=== PATIENT | female | born 1955 | race Caucasian/White ===

== ENCOUNTER → 2016-08-10 | Outpatient (CLI) | payer BC ==
[~2016-08-10] MED LIST: ALBU0.5N2 INH; ALBUTEROL NEB NEB; ARFO15NE INH; ATRINS NEB; B-COCAP2 PO; BRVIN INH; BUDE0.5S NEB; CALC500C3 PO; CLON0.5T3 PO; EPP3/2 IM; FURO-85 PO; FURO20TA PO; KLN5 PO; MCRK20 PO; MOME50SP5; MOME6000 NAE; MTR400 PO; MULT-506 PO; OMEP40CA18 PO; OPTIRAY 320 IV PRN; PANT20TA PO; POTA20TA16 PO; PRED10TA PO; RANI300T2 PO; SACC250C11 PO; SINUS MEDICATION PO; VFND200 PO; ZEGRID PO; duoneb NEB
--- NOTE | 2016-08-10 15:55 | DIAGNOSTIC IMAGING REPORT ---
CT OF THE ABDOMEN AND PELVIS WITH CONTRAST CLINICAL HISTORY: Dysfunctional uterine bleeding. Abdominal bloating. Fatigue. COMPARISON STUDY: CT of the abdomen and pelvis May 10, 2015. TECHNIQUE: Following IV administration of 93 mL of Optiray-320, axial images of the abdomen and pelvis were obtained from the lung bases to the proximal femurs. Images were reviewed in the axial, sagittal, and coronal planes. IV contrast was administered without complication. Oral contrast was administered. CT DOSE: 831.42 mGycm FINDINGS: The heart is mildly enlarged. There is fatty infiltration of the liver. The spleen, adrenal glands, kidneys and pancreas are unremarkable. There is no biliary or pancreatic ductal dilatation. No peripancreatic or pericholecystic infiltration is present. The caliber and wall thickness of small and large bowel are normal. There is a moderate amount of stool within the colon. There is colonic diverticulosis without evidence for acute diverticulitis. No ascites is present. There is no free air. No abscess is present. No suspicious skeletal lesions are identified. The ovaries are not enlarged. The uterus is suboptimally assessed by CT. IMPRESSION: 1. No acute process within the abdomen or pelvis. 2. Colonic diverticulosis without evidence of acute diverticulitis. 3. Suboptimal evaluation of the uterus given CT technique. If indicated, a pelvic ultrasound could be obtained. Electronically signed by: Duncan Mcnally M.D. 08/10/2016 3:53 PM Dictated Date/Time: 08/10/2016 3:47 PM
== END | disposition home or self-care (01) ==
LOC: C.CTS 13:26
PROVIDERS: ATTEND Internal Medicine Pulmonary Disease
DX: N93.8 Other specified abnormal uterine and vaginal bleeding (principal)

== ENCOUNTER → 2016-08-13 | Outpatient (CLI) | payer BC ==
[~2016-08-13] MED LIST changes: -OPTIRAY 320 IV PRN
--- NOTE | 2016-08-13 14:09 | DIAGNOSTIC IMAGING REPORT ---
LUMBAR SPINE 5 VIEWS HISTORY: M54.9 Back pain Long time steroid use. E X0D E COMPARISON: Abdomen and pelvis CT 08/10/2016. FINDINGS: The vertebral bodies are partially obscured by the overlying residual oral contrast within the colon on the lateral view. No definite acute fracture or subluxation. Moderate facet degenerative changes within the lower lumbar spine. Mild disc space narrowing L3-L4 and L4-L5. IMPRESSION: Suboptimal evaluation due to the overlying oral contrast within the bowel from the recent abdomen and pelvis CT. However, no definite fracture or subluxation. Degenerative changes as described above. Electronically signed by: Hemanth Chang M.D. 08/13/2016 2:08 PM Dictated Date/Time: 08/13/2016 2:04 PM
== END | disposition home or self-care (01) ==
LOC: C.RAD 13:34
PROVIDERS: ATTEND Internal Medicine Pulmonary Disease
DX: M54.9 Dorsalgia, unspecified (principal); Z79.52 Long term (current) use of systemic steroids

== ENCOUNTER → 2016-09-10 | Outpatient (CLI) | payer BC ==
--- NOTE | 2016-09-10 16:26 | DIAGNOSTIC IMAGING REPORT ---
CHEST 2 VIEWS ROUTINE CLINICAL HISTORY: Chronic bronchitis COMPARISON STUDY: 12/25/2015 FINDINGS: The cardiac and mediastinal contours are normal. There is no evidence of focal pulmonary consolidation. There is no evidence of failure. No pleural effusions are visualized.[ IMPRESSION: No active disease in the chest. Electronically signed by: Chau Winters M.D. 09/10/2016 4:25 PM Dictated Date/Time: 09/10/2016 4:24 PM
== END | disposition home or self-care (01) ==
LOC: C.RAD 15:59
PROVIDERS: ATTEND Internal Medicine Pulmonary Disease
DX: J42 Unspecified chronic bronchitis (principal)

== ENCOUNTER → 2016-09-24 | Outpatient (CLI) | payer BC ==
--- NOTE | 2016-09-24 12:32 | MAMMOGRAPHY REPORT ---
UNILATERAL LEFT DIGITAL DIAGNOSTIC MAMMOGRAM TOMOSYNTHESIS WITH CAD: 09/24/2016 CLINICAL HISTORY: 6 Month Follow-up Left. TECHNIQUE: Breast tomosynthesis in addition to standard 2D mammography was performed. Current study was also evaluated with a Computer Aided Detection (CAD) system. Left CC and MLO 2-D and tomosynth esis images and spot magnification left CC and ML views were obtained. COMPARISON: Comparison is made to exams dated: 03/23/2016 ultrasound, 03/23/2016 mammogram, 09/23/2015 mammogram, and 05/23/2012 mammogram - [facility]. BREAST COMPOSITION: There are scattered areas of fibroglandular density in the left breast. FINDINGS: Spot magnification views of the left breast again demonstrate punctate benign-appearing c alcifications within the left subareolar and left lower inner quadrant, which are stable dating back to spot magnification views from September 2015. In retrospect, calcifications in the left subareol ar breast were likely present on the 2010 exam. The calcifications in the left lower inner quadrant demonstrate layering on the lateral view, consistent with benign milk of calcium. Other scattered benign-appearing punctate and round calcifications are noted within the left breast. The remainder of the left breast is stable compared to prior exams, without suspicious masses, calci fications, or areas of architectural distortion noted. Multiple small scattered circumscribed benig n-appearing masses are again seen within the left breast, with corresponding benign cysts seen on th e prior ultrasound exam. IMPRESSION: ACR BI-RADS CATEGORY 2: BENIGN Benign-appearing calcifications in the left breast are stable and considered benign given the morpho logy and stability and likely represent fibrocystic changes. There is no mammographic evidence of m alignancy in the left breast. Return to annual mammogram screening schedule is recommended, due 2016. The patient has been verbally notified of the results. Approximately 10% of breast cancers are not detected with mammography. A negative mammographic repor t should not delay biopsy if a clinically suggestive mass is present. Tamera Gomes M.D. ah/:09/24/2016 09:29:02 Mammalogy Teacher: Tristan LI(R)(M), [facility] letter sent: Normal 1/2 BI-RADS Code: ACR BI-RADS Category 2: Benign
== END | disposition home or self-care (01) ==
LOC: C.MAMM 08:15
PROVIDERS: ATTEND Obstetrics & Gynecology
DX: R92.1 Mammographic calcification found on diagnostic imaging of breast (principal)

== ENCOUNTER → 2016-09-25 | Outpatient (CLI) | payer BC ==
[2016-09-25 17:23] LABS: INR 0.9 (0.9-1.1); PARTIAL THROMBOPLASTIN RATIO 0.9
[2016-09-25 17:27] LABS: BLOOD UREA NITROGEN 18 mg/dl (7-18); CREATININE 0.96 mg/dl (0.60-1.20); GLUCOSE 133 mg/dl (70-99)
[2016-09-25 17:28] LABS: ALT/SGPT 42 U/L (12-78); BASO % 0.1 %; BASO ABS # 0.01 K/uL (0-0.2); BUN/CREATININE RATIO 18.6 (10-20); CALCIUM 8.9 mg/dl (8.5-10.1); CARBON DIOXIDE 26 mmol/L (21-32); CHLORIDE 102 mmol/L (98-107); COMPLETE YES; EOS % 0.1 %; HEMATOCRIT 43.2 % (37-47); IG% 0.9 %; LYMPH % 12.2 %; LYMPH ABS # 1.88 K/uL (1.2-3.4); MEAN CELL VOLUME 92.9 fL (80-100); MEAN CORPUSCULAR HGB CONC 33.3 g/dl (32-36); MEAN PLATELET VOLUME 9.9 fL (7.4-10.4); MONO % 6.1 %; NEUT % 80.6 %; PLATELET COUNT 348 K/uL (130-400); POTASSIUM 3.5 mmol/L (3.5-5.1); RED BLOOD COUNT 4.65 M/uL (4.2-5.4); SODIUM 138 mmol/L (136-145)
[2016-09-25 17:30] LABS: ALB/GLOB RATIO 1.3 (0.9-2); ALKALINE PHOSPHATASE 65 U/L (45-117); AST/SGOT 14 U/L (15-37)
== END | disposition home or self-care (01) ==
LOC: C.LABBFT 12:34
PROVIDERS: ATTEND Internal Medicine Pulmonary Disease
DX: J20.9 Acute bronchitis, unspecified (principal); T14.8 Other injury of unspecified body region; X58.XXXA Exposure to other specified factors, initial encounter

== ENCOUNTER 2016-09-29 14:33 | Inpatient (IN) | payer BC, OTHER ==
[~2016-09-29] VITALS: Ht 157.5 cm; Wt 77.0 kg
[~2016-09-29 14:33] MED LIST changes: -ALBUTEROL NEB NEB; -ARFO15NE INH; -ATRINS NEB; -FURO-85 PO; -MOME6000 NAE; -MTR400 PO; -MULT-506 PO; -OMEP40CA18 PO; -PANT20TA PO; -POTA20TA16 PO; -RANI300T2 PO; -SACC250C11 PO; -VFND200 PO
[2016-09-29] MEDS ORDERED: MAGNESIUM HYDROXIDE SUSP 30 ML UDC PO PRN (18:00)
[2016-09-29] MEDS ORDERED: ONDANSETRON INJ 2 MG/ML 2 ML VIAL IV PRN (18:00)
[2016-09-29] MEDS ORDERED: ALUMINUM/MAGNESIUM/SIMETH (MAALOX MAX) 30 ML UDC PO PRN (18:00)
[2016-09-29] MEDS ORDERED: ZOLPIDEM TARTRATE 5 MG TAB PO PRN (18:00)
[2016-09-29] MEDS ORDERED: ACETAMINOPHEN 325 MG TAB PO PRN (18:00)
[2016-09-29 18:01] VITALS: BP 163/92; PULSE 104; TEMP 36.6; O2SAT 96; Ht 157.5 cm; Wt 77.0 kg
[2016-09-29] MEDS ORDERED: POLYETHYLENE (MIRALAX) 17 GM PACK PO PRN (18:30)
[2016-09-29 18:38] LABS: COMPLETE YES; IG% 0.4 %; LYMPH % 2.7 %; LYMPH ABS # 0.36 K/uL (1.2-3.4); MEAN CELL VOLUME 92.8 fL (80-100); MEAN CORPUSCULAR HEMOGLOBIN 31.6 pg (25-34); MEAN CORPUSCULAR HGB CONC 34.1 g/dl (32-36); MEAN PLATELET VOLUME 9.2 fL (7.4-10.4); MONO % 0.3 %; NEUT % 96.6 %; PLATELET COUNT 292 K/uL (130-400); RED BLOOD COUNT 4.74 M/uL (4.2-5.4); WHITE BLOOD COUNT 13.56 K/uL (4.8-10.8)
[2016-09-29 18:43] LABS: BUN/CREATININE RATIO 17.3 (10-20); CALCIUM 9.7 mg/dl (8.5-10.1); CREATININE 1.1 mg/dl (0.60-1.20); MAGNESIUM 2.2 mg/dl (1.8-2.4); POTASSIUM 4.4 mmol/L (3.5-5.1)
[2016-09-29] MEDS ORDERED: PANT20TA PO (18:45)
[2016-09-29] MEDS ORDERED: HydrALAZINE HCL 20 MG/ML VIAL IV. PRN (19:15)
[2016-09-29] MEDS: BUDESONIDE 0.5 MG/2 ML VIAL (PULMICORT) INH SCH (19:25)
--- NOTE | 2016-09-29 19:25 | History and Physical ---
History & Physical Date & Time of Service: Sep 29, 2016 at 19:09 Chief Complaint: Sob; Asthma Exacerbation Primary Care Physician: Arcenio Mason PA-C History of Present Illness Source: patient Patient is a pleasant 60 y/o female, with PMHx of asthma, anxiety, and GERD, who was directly admitted from Arcenio Mason PA-C office due to asthma exacerbation. Per patient, she has been dealing with severe asthma for over 15 years now. Her latest exacerbation has been ongoing since August. She has been on multiple antibiotic coarse (z-pac and clarithromycin) and high dose Prednisone tappers. Recently, she has been receiving SoluMedrol IM 3 times per week, with little relief in symptoms. She was scheduled for a bronchoscopy on 10/05. However, patient became very SOB today and was seen by Arcenio Mason. Patient was directly admitted and bronchoscopy is now scheduled for 10/02. Per patient, she has had +15 bronchoscopies in the past. Patient states she is usually able to control her anxiety, which occurs when she becomes very SOB. However, this afternoon she became very anxious due to uncontrollable symptoms. +SOB. +chest tightness. Patient denies cough or sputum production. She feels as though everything is stuck in her chest, with no air movement. Patient denies any fever , chills, sweats, lightheadedness, dizziness, vision changes, CP, palpitations, edema, wheezing, cough, abdominal pain, nausea, vomiting, diarrhea, urinary symptoms, melena, numbness/tingling, weakness, muscle/joint pain, depression, active bleeding, or new skin discoloration/changes. Past Medical/Surgical History Medical Problems: 1. Asthmatic 2. Anxiety 3. GERD 4. Kidney stones Surgical hx: 1. Numerous fiberoptic bronchoscopies 2. Cystoscopy 3. Sinus surgery Family History 1. DM 2. HTN 3. Cancer Social History Smoking Status: Unknown if Ever Smoked Marital Status: Housing status: lives with family Immunizations History of Influenza Vaccine: Yes Influenza Vaccine Date: Apr 02, 2012 History of Tetanus Vaccine?: Unknown History of Pneumococcal: Yes Pneumococcal Date: Aug 02, 2009 History of Hepatitis B Vaccine: No Multi-Drug Resistant Organisms History of MDRO: No Allergies Coded Allergies: Propofol (Verified Allergy, Unknown, SICK TO STOMACH AND DIFFICULTY BREATHING, 04/05/14) Propranolol (Verified Adverse Reaction, Unknown, ., 04/05/14) Home Medications Scheduled Budesonide Soln (Pulmicort Respules 0.5MG/2ML), 1 VIAL NEB BID Calcium Carbonate (Tums), 1 DOSE PO DIRECTED Clonazepam (Klonopin), 0.5 MG PO qhs Clonazepam (Clonazepam), 0.5 MG PO TID Epinephrine (Epipen), 0.3 MG IM UD Mometasone Furoate (Nasonex), 2 SPRAY NA DAILY Pantoprazole Sodium (Protonix), 20 MG PO DAILY Prednisone Tab (Prednisone), 20 MG PO tapered Vitamin B Cmplx/Vitc/Folic Ac (Nephrocaps), 1 CAP PO BID Scheduled PRN [duoneb], 1 ML NEB Q4 PRN for Shortness of Breath Physical Exam Vital Signs Date Time Temp Pulse Resp B/P Pulse Ox O2 Delivery O2 Flow Rate FiO2 09/29/16 18:01 36.6 104 22 163/92 96 Room Air General Appearance: no apparent distress Head: normocephalic, atraumatic Eyes: normal inspection, PERRL ENT: hearing grossly normal Neck: supple Respiratory/Chest: no respiratory distress, no accessory muscle use, + decreased breath sounds (Throughout ) Cardiovascular: regular rate, rhythm, normal peripheral pulses Abdomen/GI: normal bowel sounds, non tender, soft Back: normal inspection Extremities/Musculoskelatal: no calf tenderness, no pedal edema Neurologic/Psych: alert, normal mood/affect, oriented x 3 Skin: normal color, warm/dry, no rash Diagnostics Laboratory Results Results Past 24 Hours Test 09/29/16 18:08 09/29/16 18:24 Range/Units Sodium Level 137 136-145 mmol/L Potassium Level 4.4 3.5-5.1 mmol/L Chloride Level 101 98-107 mmol/L Carbon Dioxide Level 26 21-32 mmol/L Anion Gap 10.0 3-11 mmol/L Blood Urea Nitrogen 19 7-18 mg/dl Creatinine 1.10 0.60-1.20 mg/dl Est Creatinine Clear Calc Drug Dose 51.6 ml/min Estimated GFR () 62.8 Estimated GFR (Non- 54.1 BUN/Creatinine Ratio 17.3 10-20 Random Glucose 170 70-99 mg/dl Calcium Level 9.7 8.5-10.1 mg/dl Magnesium Level 2.2 1.8-2.4 mg/dl White Blood Count 13.56 4.8-10.8 K/uL Red Blood Count 4.74 4.2-5.4 M/uL Hemoglobin 15.0 12.0-16.0 g/dL Hematocrit 44.0 37-47 % Mean Corpuscular Volume 92.8 80-100 fL Mean Corpuscular Hemoglobin 31.6 25-34 pg Mean Corpuscular Hemoglobin Concent 34.1 32-36 g/dl Platelet Count 292 130-400 K/uL Mean Platelet Volume 9.2 7.4-10.4 fL Neutrophils (%) (Auto) 96.6 % Lymphocytes (%) (Auto) 2.7 % Monocytes (%) (Auto) 0.3 % Eosinophils (%) (Auto) 0.0 % Basophils (%) (Auto) 0.0 % Neutrophils # (Auto) 13.10 1.4-6.5 K/uL Lymphocytes # (Auto) 0.36 1.2-3.4 K/uL Monocytes # (Auto) 0.04 0.11-0.59 K/uL Eosinophils # (Auto) 0.00 0-0.5 K/uL Basophils # (Auto) 0.00 0-0.2 K/uL RDW Standard Deviation 46.7 36.4-46.3 fL RDW Coefficient of Variation 13.8 11.5-14.5 % Immature Granulocyte % (Auto) 0.4 % Immature Granulocyte # (Auto) 0.06 0.00-0.02 K/uL Impression Assessment and Plan 60 y/o female, with PMHx of asthma, anxiety, and GERD, who was directly admitted from Arcenio Mason PA-C office due to asthma exacerbation. Asthma exacerbation: - Admit med/surg - DuoNebs QID and q2 hr PRN - IV SoluMedrol 80 mg q8 hrs - Continue home inhalers - PRP and CBC - Consult pulmonary--> bronchoscopy scheduled for 3/3 Anxiety: Continue Klonopin GERD: Continue Protonix HTN: Hydralazine 10 mg IV PRN GI Prophylaxis: - Maalox PRN - IV Zofran PRN - Colace and/or Milk of Mag PRN DVT prophylaxis: TRISTON and SCDs Code Status: LEVEL I, FULL Dispo: From home Level of Care Med/Surg Advanced Directives Existing Living Will: No Existing Power of Benzol Operator: No Resuscitation Status FULL RESUSCITATION VTE Prophylaxis VTE Risk Assessment Done? Y/N: Yes Risk Level: High Given or contraindicated: Josseline Cifuentes, SCD's
[2016-09-29 19:26] VITALS: PULSE 65; O2SAT 97
[2016-09-29] MEDS: ALBUT/IPRATROP 3MG/0.5MG NEB 3 ML VIAL INH SCH (19:26)
[2016-09-29] MEDS ORDERED: SODIUM CHLORIDE 0.9% 1000ML 1,000 ML IV ONE (19:30)
[2016-09-29] MEDS: METHYLPREDNISOLONE IV 80 MG in SYRINGE 0 ML IV SCH (19:50)
[2016-09-29] MEDS ORDERED: ALBUT/IPRATROP 3MG/0.5MG NEB 3 ML VIAL INH SCH (20:00)
[2016-09-29] MEDS: CLONAZEPAM 0.5 MG TAB PO SCH (23:00)
[2016-09-29] MEDS: NEPHROCAPS PO SCH (23:00)
[2016-09-29 23:14] VITALS: BP 134/72; PULSE 80; TEMP 36.5; O2SAT 96
[2016-09-30] VITALS (9 sets, daily range): BP systolic 128–140; BP diastolic 69–74; PULSE 63–102; TEMP 36.4–36.7; O2SAT 94–98
[2016-09-30] MEDS: METHYLPREDNISOLONE IV 80 MG in SYRINGE 0 ML IV SCH (04:15)
[2016-09-30] MEDS: CLONAZEPAM 0.5 MG TAB PO SCH ×4 (07:45→20:28)
[2016-09-30] MEDS: PANTOprazole SOD 40 MG TAB PO SCH (07:45)
[2016-09-30] MEDS: NEPHROCAPS PO SCH ×2 (07:45→20:28)
[2016-09-30 07:52] LABS: CREATININE 0.92 mg/dl (0.60-1.20)
[2016-09-30 07:53] LABS: MAGNESIUM 2.3 mg/dl (1.8-2.4); POTASSIUM 4.4 mmol/L (3.5-5.1)
[2016-09-30] MEDS: BUDESONIDE 0.5 MG/2 ML VIAL (PULMICORT) INH SCH ×2 (08:19→19:25)
[2016-09-30] MEDS: ALBUT/IPRATROP 3MG/0.5MG NEB 3 ML VIAL INH SCH ×4 (08:19→19:25)
--- NOTE | 2016-09-30 08:58 | PULMONARY CONSULTATION ---
DATE OF CONSULTATION: 09/30/2016 DATE OF CONSULTATION: 09/30/2016. HISTORY OF PRESENT ILLNESS: The patient is a very pleasant 60-year-old female who was admitted from Arcenio Mason PA-C office yesterday with exacerbation of bronchial asthma. She has had trouble for about a month. She has had a cough which is very minimal associated with wheezing and shortness of breath. The wheezing occurs at nighttime. She denies any aspiration or significant sputum production and minimal cough. She has had some significant shortness of breath with exertion. She had been treated with multiple antimicrobial agents recently, high dose prednisone and has been on prednisone for an extended period of time and has been on Z-Ramin and clarithromycin. She has had multiple bronchoscopies done in the past and states each time she has those done it usually helps her several weeks, sometimes up to several months. She states she has had [address] Preciado in the past and also by physicians in [place]. She had been evaluated at [facility], seen at the pulmonary clinic at [facility], has been in 2 studies for bronchial asthma. Bronchial thermoplasty was never done because it was never approved by her insurance. I do not believe it is being done at [facility]. Nonetheless, she continued to have worsening shortness of breath. Today, she is walking around the room and feels considerably improved since admission. She is scheduled for bronch again on Wednesday the . She denies aspiration, foreign body aspiration, fevers, night sweats or weight loss. She has dogs at home, no cats, they do not seem to bother her. REVIEW OF SYSTEMS: Otherwise unremarkable. PAST MEDICAL HISTORY: Significant for anxiety, renal lithiasis, dysfunctional uterine bleeding, diverticulosis, GERD, obesity and asthma. PAST SURGICAL HISTORY: Cystoscopy, sinus surgery, multiple bronchoscopies. Review of the records she had a CAT scan of her chest in September of last year that revealed several calcified left hilar lymph nodes, mild cardiomegaly, few calcified granulomas and some ground-glass opacities at the bases associated with atelectasis. Fatty infiltration of the liver is noted. These airways were otherwise unremarkable. SOCIAL HISTORY: Negative. 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 She is not associated with any industrial exposures. FAMILY HISTORY: Positive for hypertension and diabetes, lives with her family members at the present time. She is up to date with her immunizations. ALLERGIES: Propofol and propranolol. MEDICATIONS: Noted. I do not see that she is on a long acting bronchodilator, apparently has been on those in the past. PHYSICAL EXAMINATION: VITAL SIGNS: Stable. Blood pressure was initially 163/92, it is 134/72, oxygen saturation 96% on room air. She is afebrile. Weight 77 kilograms. She is receiving an albuterol treatment this morning at 0750 hours. HEAD, EYES, EARS, NOSE, AND THROAT: Unremarkable. No tenderness over the sinuses. Nose exam is unremarkable with small nares. No evidence of thrush is noted. No lesions noted in the upper airway. Trachea midline. No adenopathy is noted. Expansion of the thorax is good with deep inspiration. HEART: Regular rate and rhythm. No murmurs are heard. Second heart sound normal. LUNGS: I thought were clear with very minimal wheezing with forced expiration in the mid lung mann posterior. No fremitus is noted. There is no dullness to percussion. ABDOMEN: Soft and nontender. No organomegaly noted. EXTREMITIES: She has no cyanosis, clubbing or edema. There is no clinical evidence of DVT. LABORATORY DATA: White count 13.56, hemoglobin 15, hematocrit 44%, platelet count 292,000 with an unremarkable differential. No eosinophils are noted. PRP is normal with a glucose of 170. According to the record, she has had ethmoid sinus surgery back in 2007 that showed mild chronic inflammation. Chest x-ray on 09/10/2016 showed no significant abnormalities. IMPRESSION: 1. Bronchial asthma with exacerbation. 2. Gastroesophageal reflux disease. RECOMMENDATIONS: 1. Continue with her present medications. She had a cardiac cath in 2011 that showed no evidence of any coronary artery disease. Her EKG looked good so her activity can be unlimited. Suggest good DVT prophylaxis and antireflux regimen and she understands. 2. May consider changing the Pulmicort to Symbicort 160/4.5 two puffs b.i.d. and perhaps add on Singulair although I am sure that has been instituted in the past. I will ask Arcenio Mason PA-C to evaluate the patient as well. I will follow along during the patient's hospital stay.
--- NOTE | 2016-09-30 13:24 | Hospitalist Progress Note ---
Hospitalist Progress Note Date of Service Sep 30, 2016. (Mattie Oakes ., PA-C) Subjective Pt evaluation today including: conversation w/ patient, physical exam, chart review, lab review, review of inpatient medication list Voiding: no voiding problems, no incontinence Patient states she feels minimally improved since admission. +SOB. +chest congestion. +anxiety. She feels fine when doing no activity, but as soon as she stands up, she feels as though her throat is constricting. Patient is eating and drinking OK. Patient denies any fever, chills, sweats, lightheadedness, dizziness, vision changes, CP, palpitations, edema, wheezing, cough, abdominal pain, nausea, vomiting, diarrhea, urinary symptoms, melena, numbness/tingling, weakness, muscle/joint pain, depression, active bleeding, or new skin discoloration/changes. (Mattie Oakes ., PA-C) Medications Current Inpatient Medications Medications (Trade) Dose Ordered Sig/Raheem Route Start Time Stop Time Status Last Admin Dose Admin Acetaminophen (Tylenol Tab) 650 mg Q4H PRN PO 09/29/16 18:00 10/29/16 17:59 Al Hydrox/Mg Hydrox/Simethicone (Maalox Max Susp) 15 ml Q4H PRN PO 09/29/16 18:00 10/29/16 17:59 Magnesium Hydroxide (Milk Of Magnesia Susp) 30 ml Q6H PRN PO 09/29/16 18:00 10/29/16 17:59 Polyethylene (Miralax Powder Packet) 17 gm DAILY PRN PO 09/29/16 18:30 10/29/16 18:29 Zolpidem Tartrate (Ambien Tab) 5 mg HSZ PRN PO 09/29/16 18:00 10/29/16 17:59 Ondansetron HCl (Zofran Inj) 4 mg Q6H PRN IV 09/29/16 18:00 10/29/16 17:59 Pantoprazole Sodium (Protonix Tab) 40 mg QAM PO 09/30/16 09:00 10/30/16 08:59 09/30/16 07:45 40 MG Budesonide (Pulmicort Respules 0.5MG/ 2ML Neb Soln) 1 mg BIDR INH 09/29/16 20:00 10/29/16 19:59 09/30/16 08:19 1 MG Clonazepam (Klonopin Tab) 0.5 mg TID@0900,1300,1700 PO 09/30/16 09:00 10/30/16 08:59 09/30/16 12:32 0.5 MG Clonazepam (Klonopin Tab) 0.5 mg HS PO 09/29/16 21:00 10/29/16 20:59 09/29/16 23:00 0.5 MG Vitamin B Complex/ Vit C/Folic Acid (Nephrocaps) 1 cap BID PO 09/29/16 21:00 10/29/16 20:59 09/30/16 07:45 1 CAP Hydralazine HCl (HydrALAZINE INJ) 10 mg Q6H PRN IV. 09/29/16 19:15 10/29/16 19:14 Albuterol/ Ipratropium 3 ml 3 ml QIDR INH 09/29/16 20:00 10/29/16 19:59 09/30/16 11:35 3 ML Methylprednisolone Sodium Succinate/ Syringe (Solu-Medrol IV/ Syringe) 0.64 ml @ 1.5 mls/min Q8@0400,1200,2000 IV 09/30/16 13:00 10/30/16 12:59 09/30/16 13:46 1.5 MLS/MIN Heparin Sodium (Porcine) (Heparin Sq 5000 Unit/0.5ml) 5,000 unit Q12 SQ 09/30/16 21:00 10/30/16 20:59 (Mattie Oakes, PA-C) Objective Vital Signs Date Time Temp Pulse Resp B/P Pulse Ox O2 Delivery O2 Flow Rate FiO2 09/30/16 11:35 97 16 98 Room Air 09/30/16 10:24 97 Room Air 09/30/16 08:00 Room Air 09/30/16 07:55 36.7 80 18 140/72 97 Room Air 09/30/16 07:40 78 16 97 Room Air 09/30/16 00:00 Room Air 09/29/16 23:14 36.5 80 18 134/72 96 Room Air 09/29/16 20:00 Room Air 09/29/16 19:26 65 18 97 Room Air 09/29/16 18:01 36.6 104 22 163/92 96 Room Air (Mattie Oakes ., PA-C) Physical Exam General Appearance: no apparent distress Eyes: normal inspection, PERRL ENT: hearing grossly normal Neck: supple Respiratory/Chest: no respiratory distress, no accessory muscle use, + decreased breath sounds (throughout, >at bilateral lung bases ) Cardiovascular: regular rate, rhythm Abdomen: normal bowel sounds, non tender, soft Extremities: no pedal edema, no calf tenderness Neurologic/Psychiatric: alert, normal mood/affect, oriented x 3 Skin: normal color, warm/dry, no rash (Mattie Oakes ., PA-C) Laboratory Results Last 24 Hours Test 09/29/16 18:08 09/29/16 18:24 09/30/16 07:00 Sodium Level 137 mmol/L 143 mmol/L Potassium Level 4.4 mmol/L 4.4 mmol/L Chloride Level 101 mmol/L 107 mmol/L Carbon Dioxide Level 26 mmol/L 26 mmol/L Anion Gap 10.0 mmol/L 10.0 mmol/L Blood Urea Nitrogen 19 mg/dl 21 mg/dl Creatinine 1.10 mg/dl 0.92 mg/dl Est Creatinine Clear Calc Drug Dose 51.6 ml/min 61.7 ml/min Estimated GFR () 62.8 77.9 Estimated GFR (Non- 54.1 67.2 BUN/Creatinine Ratio 17.3 23.0 Random Glucose 170 mg/dl 146 mg/dl Calcium Level 9.7 mg/dl 9.0 mg/dl Magnesium Level 2.2 mg/dl 2.3 mg/dl White Blood Count 13.56 K/uL Red Blood Count 4.74 M/uL Hemoglobin 15.0 g/dL Hematocrit 44.0 % Mean Corpuscular Volume 92.8 fL Mean Corpuscular Hemoglobin 31.6 pg Mean Corpuscular Hemoglobin Concent 34.1 g/dl Platelet Count 292 K/uL Mean Platelet Volume 9.2 fL Neutrophils (%) (Auto) 96.6 % Lymphocytes (%) (Auto) 2.7 % Monocytes (%) (Auto) 0.3 % Eosinophils (%) (Auto) 0.0 % Basophils (%) (Auto) 0.0 % Neutrophils # (Auto) 13.10 K/uL Lymphocytes # (Auto) 0.36 K/uL Monocytes # (Auto) 0.04 K/uL Eosinophils # (Auto) 0.00 K/uL Basophils # (Auto) 0.00 K/uL RDW Standard Deviation 46.7 fL RDW Coefficient of Variation 13.8 % Immature Granulocyte % (Auto) 0.4 % Immature Granulocyte # (Auto) 0.06 K/uL Chemistry Specimen Hemolysis (Mattie Oakes PA-C) Assessment and Plan 60 y/o female, with PMHx of asthma, anxiety, and GERD, who was directly admitted from Arcenio Mason PA-C office due to asthma exacerbation. Asthma exacerbation: - Admit med/surg - DuoNebs QID and q2 hr PRN - IV SoluMedrol 80 mg q8 hrs--> wean to 40 mg q8 hrs per pulmonary - Continue home inhalers - PRP and CBC - Consult pulmonary--> bronchoscopy scheduled for 10/02 - CXR pending Anxiety: Continue Klonopin GERD: Continue Protonix HTN: Hydralazine 10 mg IV PRN GI Prophylaxis: - Maalox PRN - IV Zofran PRN - Colace and/or Milk of Mag PRN DVT prophylaxis: Heparin 5000 units SQ q12 hrs, TRISTON and SCDs Code Status: LEVEL I, FULL Dispo: From home (Mattie Oakes PA-C) Reviewed: Pt Seen/Exam by Me (Mala Ruiz MD) History Physician Music Typographer Supervision Note: I interviewed and examined the patient. Discussed with KEN Oakes and agree with findings and plan as documented in the note. Any exceptions or clarifications are listed here: Reviewed history in detail this evening. Pt states she is significantly SOB yet talks nonstop without any appearance of dyspnea for almost 15 min. Not requiring oxygen, no cough. States she just stops being able to get air into her chest. Is eager to have bronchoscopy done and has had 15 previous bronchs as per pt. Vitals reviewed, CXR reviewed and is normal AAOx3, NAD, speaking in fluent sentences without any problems, appears well RRR no mgr nl S1S2 CTAB, moving air well in all mann, no wcr, unlabored breathing ABd sof Lul ND Ext no edema 60 yo female here with asthma exacerbation and complex history of steroid- dependent asthma for 15 years. Seems to be doing quite well now on IV steroids. Plan for bronchoscopy to see if has mucus plugging. States has tried "every single medication" for asthma and allergies, has tried vibration vest, flutter valves, etc. and nothing helps her atypical symptoms of sudden onset of not being able to get air in that lasts for 1 min at a time. -continue IV steroids -consider increasing meds for anxiety -Pulm following Documented By: Mala Ruiz (Mala Ruiz MD)
[2016-09-30] MEDS: METHYLPREDNISOLONE IV 40 MG in SYRINGE 0 ML IV SCH ×2 (13:46→20:27)
--- NOTE | 2016-09-30 15:06 | DIAGNOSTIC IMAGING REPORT ---
CHEST 2 VIEWS ROUTINE CLINICAL HISTORY: cough, SOB dyspnea COMPARISON STUDY: 09/10/2016 FINDINGS: The bones soft tissues and hemidiaphragms are normal. The cardiomediastinal silhouette is normal. The lungs are clear. The pulmonary vasculature is normal. IMPRESSION: Negative chest. Electronically signed by: Jac Greenfield M.D. 09/30/2016 3:05 PM Dictated Date/Time: 09/30/2016 3:05 PM
[2016-09-30] MEDS: HEPARIN SOD 5000 UNIT/0.5 ML CARP SQ SCH (20:30)
[2016-10-01] VITALS (7 sets, daily range): BP systolic 123–148; BP diastolic 74–87; PULSE 68–79; TEMP 36.3–36.5; O2SAT 90–98
[2016-10-01] MEDS: METHYLPREDNISOLONE IV 40 MG in SYRINGE 0 ML IV SCH ×2 (06:29→21:53)
--- NOTE | 2016-10-01 07:20 | PULMONARY PROGRESS NOTE ---
DATE: 10/01/2016 SUBJECTIVE: The patient is doing very well. She has minimal cough and still has some anterior chest tightness and fullness that she has had for a number of years. It is continuous for 24 hours a day. When she coughs, it seems to have improved. She has not had any sputum production. She has been ambulating in the alicea consistently with no wheezing. Her inspiratory capacity by incentive spirometry is about 1700 mL. She does a peak flow at home, generally runs about 300, sometimes down to 275. When she gets down onto 220 range, she usually has trouble with wheezing. She has not had any wheezing. She is scheduled for bronchoscopy for tomorrow. PHYSICAL EXAMINATION: VITAL SIGNS: Stable. Blood pressure 136/74, oxygen saturation is 97% on room air, and respiratory rate 16. I & O is 662 in and unknown amount out. Weight 77 kilograms. She does use a nebulizer at home. Medications are noted. HEENT: Unremarkable. No thrush is noted. No adenopathy is noted. HEART: Regular rate and rhythm. No murmurs are heard. LUNGS: Clear. Forced expiratory maneuver 2 seconds with no wheezing. ABDOMEN: Soft and nontender. EXTREMITIES: She has no cyanosis, clubbing or edema. Chest x-ray was unremarkable as it was several weeks ago. IMPRESSION: Bronchial asthma. She has had recalcitrant bronchial asthma that has been evaluated at the multiple tertiary care centers as well. RECOMMENDATIONS: 1. At this point, I think the methylprednisolone could be tapered down perhaps to 40 mg q. 12 hours and she can be placed on prednisone at 40 mg daily with a taper. 2. Continue on the inhaled steroids since she may benefit from Symbicort 160/4.5 two puffs b.i.d. and the Pulmicort Respules could be discontinued. 3. Antireflux regimen. 4. 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 She is scheduled for bronchoscopy tomorrow. Since she is stable, I will sign off on the patient. Arcenio Mason can follow her perhaps tomorrow after the bronchoscopy. Overall, she looks good. [facility]
[2016-10-01] MEDS: BUDESONIDE 0.5 MG/2 ML VIAL (PULMICORT) INH SCH ×2 (07:31→20:35)
[2016-10-01] MEDS: ALBUT/IPRATROP 3MG/0.5MG NEB 3 ML VIAL INH SCH ×4 (07:31→20:35)
[2016-10-01] MEDS: PANTOprazole SOD 40 MG TAB PO SCH (07:56)
[2016-10-01] MEDS: NEPHROCAPS PO SCH ×2 (07:56→21:53)
[2016-10-01] MEDS: CLONAZEPAM 0.5 MG TAB PO SCH ×4 (07:56→21:53)
[2016-10-01] MEDS: HEPARIN SOD 5000 UNIT/0.5 ML CARP SQ SCH ×2 (08:00→21:55)
[2016-10-01 08:10] LABS: PROTHROMBIN TIME (PATIENT) 10.2 SECONDS (9.0-12.0)
--- NOTE | 2016-10-01 22:04 | Hospitalist Progress Note ---
Hospitalist Progress Note Date of Service Oct 01, 2016. Subjective Pt evaluation today including: conversation w/ patient, physical exam, conversation w/ farm consultant (Pulm), review of inpatient medication list Pt still c/o being SOB with exertion. No other concerns Constitutional: No fever Cardiovascular: No chest pain Abdomen: No pain All Other Systems: Reviewed and Negative Objective Vital Signs Date Time Temp Pulse Resp B/P Pulse Ox O2 Delivery O2 Flow Rate FiO2 10/01/16 20:35 68 16 95 Room Air 10/01/16 16:00 Room Air 10/01/16 15:54 72 16 96 Room Air 10/01/16 15:53 36.3 73 17 148/87 95 Room Air 10/01/16 11:28 76 16 98 Room Air 10/01/16 08:00 Room Air 10/01/16 07:20 76 16 98 Room Air 10/01/16 07:00 36.3 79 18 136/82 90 Nasal Cannula 2.0 10/01/16 06:59 36.5 76 16 123/74 97 Room Air 09/30/16 23:49 36.7 92 16 136/74 97 Physical Exam General Appearance: WD/WN, no apparent distress Eyes: normal inspection, sclerae normal ENT: hearing grossly normal, pharynx normal Neck: trachea midline Respiratory/Chest: lungs clear (still with minimal effort when asked to take deep breaths but then spontaneously takes deep breaths as I continue to listen and lungs clear, moving air well, ), normal breath sounds, no respiratory distress, no accessory muscle use Cardiovascular: regular rate, rhythm, no edema, no murmur Abdomen: normal bowel sounds, non tender, soft Extremities: normal inspection, no calf tenderness Neurologic/Psychiatric: alert, oriented x 3 Skin: normal color, warm/dry, no rash Laboratory Results Last 24 Hours Test 10/01/16 07:23 Prothrombin Time 10.2 SECONDS Prothromb Time International Ratio 1.0 Assessment and Plan 60 y/o female, with PMHx of asthma, anxiety, and GERD, who was directly admitted from Arcenio Mason PA-C office due to asthma exacerbation failing outpatient treatment and need for bronchoscopy. Pt with complex history of steroid-dependent asthma for 15 years. Seems to be doing quite well now on IV steroids. Plan for bronchoscopy to see if has mucus plugging. States has tried "every single medication" for asthma and allergies, has tried vibration vest, flutter valves, etc. and nothing helps her atypical symptoms of sudden onset of not being able to get air in that lasts for 1 min at a time. Asthma exacerbation: CXR normal, no clear evidence of asthma exacerbation again today, unclear if this is vocal cord dysfunction although Pulm that knows her says she has been tested for this and is negative - continue DuoNebs QID and q2 hr PRN, pt cannot tolerate inhalers, has to have nebs only - IV SoluMedrol 80 mg q8 hrs--> wean to 40 mg q12 hrs per pulmonary - Consult pulmonary--> bronchoscopy scheduled for 3/3 to see if has thick mucus plugs Anxiety: Continue Klonopin but consider adding on SSRI GERD: Continue Protonix HTN: Hydralazine 10 mg IV PRN GI Prophylaxis: - Maalox PRN - IV Zofran PRN - Colace and/or Milk of Mag PRN DVT prophylaxis: Heparin 5000 units SQ q12 hrs, TRISTON and SCDs Code Status: LEVEL I, FULL Dispo: From home
[2016-10-02] VITALS (18 sets, daily range): BP systolic 120–186; BP diastolic 69–96; PULSE 74–99; TEMP 36.2–36.7; O2SAT 92–100
[2016-10-02] MEDS ORDERED: SODIUM CHLORIDE 0.9% 1000ML 1,000 ML IV SCH (06:00)
--- NOTE | 2016-10-02 07:28 | History & Physical Bridge Note ---
H&P Re-Evaluation Bridge Note: I have examined the patient, reviewed the History & Physical and in the interval since the performance of the History & Physical I have noted the following changes of clinical significance: No changes noted
--- NOTE | 2016-10-02 07:29 | Procedure Note ---
Pre-Mod Sedation Assessment General Date of Moderate Sedation: Oct 02, 2016. Vital Signs: Vital Signs Past 12 Hours Date Time Temp Pulse Resp B/P Pulse Ox O2 Delivery O2 Flow Rate FiO2 10/02/16 00:27 36.4 81 16 120/75 97 Room Air 10/01/16 23:50 Room Air 10/01/16 20:35 68 16 95 Room Air Pre-Sedation Airway Assessment Oral Cavity: WNL Short Thick Neck: No Hx of Sleep Apnea: No Smoking Status: Never Smoker Mallampati Classification: Class II ASA Classification: Class I Procedure Planning Contraindications-for Mod Sed: None Yes Notes The planned sedation has been discussed with the patient and consent obtained. I have identified the patient, determined the appropriateness of sedation and have assessed the patient immediately prior to the procedure. All medicine(s) and interventions are by my order.
[2016-10-02] MEDS: METHYLPREDNISOLONE IV 40 MG in SYRINGE 0 ML IV SCH (07:41)
[2016-10-02] MEDS: NEPHROCAPS PO SCH (07:41)
[2016-10-02] MEDS: CLONAZEPAM 0.5 MG TAB PO SCH ×2 (07:41→13:04)
[2016-10-02] MEDS: PANTOprazole SOD 40 MG TAB PO SCH (07:41)
[2016-10-02] MEDS: HEPARIN SOD 5000 UNIT/0.5 ML CARP SQ SCH (07:45)
[2016-10-02] MEDS: ALBUT/IPRATROP 3MG/0.5MG NEB 3 ML VIAL INH SCH ×2 (08:07→11:37)
[2016-10-02] MEDS: BUDESONIDE 0.5 MG/2 ML VIAL (PULMICORT) INH SCH (08:07)
[2016-10-02] MEDS ORDERED: MIDAZOLAM HCL 5 MG/ML 1 ML VIAL IV ONE ×2 (09:00→14:20)
[2016-10-02] MEDS ORDERED: NURSING VERBAL MED ORDER ONE (09:00)
[2016-10-02] MEDS ORDERED: FENTANYL CITRATE INJ 50 MCG/1 ML 2 ML VIAL IV ONE ×2 (09:00→14:20)
--- NOTE | 2016-10-02 09:21 | OPERATIVE REPORT ---
DATE OF OPERATION: 10/02/2016 TIME: 0900. PROCEDURE: Fiberoptic bronchoscopy with bronchoalveolar lavage. INDICATIONS: Chronic persistent asthma refractory to inpatient aggressive medical management. ANESTHESIA PREOPERATIVELY: None. ANESTHESIA DURING PROCEDURE: 12 mg IV Versed, 100 mcg IV fentanyl, 20 mL 4% viscous lidocaine intranasally. PROCEDURE: Fiberoptic bronchoscope was inserted through the right naris with minimal difficulty and passed to the level of true vocal cords. The cords appear to approximate normally with phonation, without evidence of lesions or paralysis. The area was anesthetized with 2% Xylocaine spray and the scope was then introduced in the trachea and right and left tracheobronchial tree. The yesica was sharp. The right main stem bronchus was explored and no endobronchial lesion was seen. The right upper lobe, the apical posterior and anterior segments, bronchus intermedius, right middle lobe and its medial and lateral segments, and all basilar segments of right lower lobe were explored. A small amount of mucopurulent secretion lavaged from the right lower lobe and right middle lobar and segmental bronchi until clear. Minimal mucous pitting was visible throughout the right tracheobronchial tree. Left tracheobronchial tree showed no endobronchial lesions seen. Left upper lobe with the apical posterior and anterior segments, lingular subdivision, and left lower lobe were free of endobronchial lesions down to subsegmental bronchi. Each lobar segment was lavaged with normosol, and a minimal amount of mucopurulent and mucoviscous secretion was lavaged until clear. Mild inflammatory mucosal change was seen throughout the left tracheobronchial tree. No biopsies or brushings were deemed necessary. The procedure was terminated. The patient tolerated the procedure well and was transferred to the medical treatment unit hemodynamically stable with no signs of respiratory compromise. The patient was given nebulizer treatment of Xopenex 1.25 mg prior to discharge. We will await microbiological and cytologic examination of the bronchial washings. I attest to the content of the Intraoperative Record and any orders documented therein. Any exceptio ns are noted below.
[2016-10-02] MEDS ORDERED: PRED10TA PO (13:57)
--- NOTE | 2016-10-02 14:02 | Discharge Instructions ---
Discharge Instructions Admission Reason for Admission: Sob; Asthma Exacerbation Discharge Discharge Diagnosis / Problem: Asthma exacerbation, Bronchoscopy Discharge Goals Goal(s): Improve disease control, Therapeutic intervention Activity Recommendations Activity Limitations: resume your previous activity . Instructions / Follow-Up Instructions / Follow-Up Follow up with Arcenio Mason Pulmonology within 1 week. You were admitted for treatment of your asthma exacerbation with IV steroids and underwent a bronchoscopy which showed minimal mucus and inflammation in the airways. This was flushed out with lavage and samples were collected for analysis. The results can be reviewed with Pulmonology in the office at your follow up visit. Follow up with your PCP within 1 week as well. Current Hospital Diet Patient's current hospital diet: AHA Diet (Heart Healthy) Discharge Diet Recommended Diet: AHA Diet (Heart Healthy) Procedures Procedures Performed: Bronchoscopy Pending Studies Studies pending at discharge: yes List of pending studies: Bronchial washings analysis, cultures Medical Emergencies . Who to Call and When: Medical Emergencies: If at any time you feel your situation is an emergency, please call 911 immediately. . Non-Emergent Contact Non-Emergency issues call your: Primary Care Provider, Edge Cutting Machine Operator . . "Provider Documentation" section prepared by Mala Ruiz. VTE Core Measure Inpt VTE Proph given/why not?: Josseline Cifuentes, [employer]
[2016-10-02] MEDS ORDERED: LEVALBUTEROL 1.25MG/3ML NEB INH ONE (14:20)
[2016-10-02] MEDS ORDERED: LIDOCAINE HCL 2% LOCAL 50ML VIAL INFIL ONE (14:20)
[2016-10-02] MEDS ORDERED: LIDOCAINE 4% W/AFRIN NASAL SOLN 4ML ONE (14:20)
--- NOTE | 2016-10-02 23:10 | Discharge Summary ---
Discharge Summary Date of Service Oct 02, 2016. Discharge Summary Admission Date: Sep 29, 2016 at 15:56 Discharge Date: Oct 02, 2016 Discharge Disposition: Home Principal Diagnosis: Asthma Exacerbation Problems/Secondary Diagnoses: Anxiety disorder GERD Chronic steroid use HTN Immunizations: Have You Had Influenza Vaccine: Yes Influenza Vaccine Date: Apr 02, 2012 History of Tetanus Vaccine?: Unknown History of Pneumococcal: Yes Pneumococcal Date: Aug 02, 2009 History of Hepatitis B Vaccine: No Procedures: Bronchoscopy Consultations: Pulmonology Medication Reconciliation Changed Medications: Prednisone Tab (Prednisone) 10 Mg Tab 40 MG PO DAILY for 30 Days, TAB (Changed from: 20 MG; tapered; Removed Instructions) Continued Medications: Budesonide Soln (Pulmicort Respules 0.5MG/2ML) Nebu 1 VIAL NEB BID for 30 Days, #60 VIAL 3 Refills Calcium Carbonate (Tums) 500 Mg Chew 1 DOSE PO DIRECTED Clonazepam (Klonopin) 0.5 Mg Tab 0.5 MG PO qhs, TAB Clonazepam (Clonazepam) 0.5 Mg Tab 0.5 MG PO TID, #21 TAB Epinephrine (Epipen) 0.3 Mg/0.3 Ml Inj 0.3 MG IM UD, INJ Mometasone Furoate (Nasonex) Buhl 2 SPRAY NA DAILY, 0 Refills Pantoprazole Sodium (Protonix) 20 Mg Tab 20 MG PO DAILY, #30 TAB Vitamin B Cmplx/Vitc/Folic Ac (Nephrocaps) 1 Cap Cap 1 CAP PO BID, CAP [duoneb] () 1 ML NEB Q4 PRN for Shortness of Breath Referrals At Discharge Follow up Referrals: Local Truck Driver Referral - Within 1 Week with Arcenio Mason PA-C Discharge Exam Pt felt markedly improved after her bronchoscopy on day of discharge despite the fact that there was minimal mucus secretions visualized. SHe did however have fluid lavage of lungs and so maybe this helped her. Review of Systems: Constitutional: No fever Eyes: No problem reported ENT: No problem reported Respiratory: + shortness of breath Cardiovascular: No problem reported Abdomen: No nausea, No pain, No vomiting Musculoskeletal: No problem reported Genitourinary - Female: No problem reported Neurologic: No problem reported Psychiatric: + anxiety Endocrine: No problem reported Hematologic / Lymphatic: No problem reported Integumentary: No problem reported Physical Exam: General Appearance: WD/WN, no apparent distress Eyes: normal inspection, EOMI, sclerae normal ENT: hearing grossly normal, pharynx normal Neck: supple, no adenopathy, thyroid normal, trachea midline Respiratory/Chest: lungs clear, normal breath sounds, no respiratory distress, no accessory muscle use, + pertinent finding (poor inspiratory effort when asked to breathe deeply, however took normal breaths and expanded chest when distracted and lungs were clear, moving air throughout, was speaking in fluent sentences without any SOB) Cardiovascular: regular rate, rhythm, no edema, no gallop, no murmur, normal peripheral pulses Abdomen / GI: normal bowel sounds, non tender, soft, no organomegaly Extremities: no pedal edema Neurologic/Psychiatric: alert, normal mood/affect, oriented x 3 Skin: normal color, warm/dry, no rash Hospital Course 60 y/o female, with PMHx of asthma, anxiety, and GERD, who was directly admitted from Arcenio Mason PA-C office due to asthma exacerbation failing outpatient treatment and need for bronchoscopy. Pt with complex history of steroid-dependent asthma for 15 years. Seems to be doing quite well now on IV steroids. Plan for bronchoscopy to see if has mucus plugging. States has tried "every single medication" for asthma and allergies, has tried vibration vest, flutter valves, etc. and nothing helps her atypical symptoms of sudden onset of not being able to get air in that lasts for 1 min at a time. Asthma exacerbation: CXR normal, no clear evidence of asthma exacerbation again today, unclear if this is vocal cord dysfunction although Pulm that knows her says she has been tested for this and is negative -was given DuoNebs QID and q2 hr PRN, pt cannot tolerate inhalers, has to have nebs only - IV SoluMedrol 80 mg q8 hrs--> wean to 40 mg prednisone today and remain on that dose until seen by Pulm - Consult pulmonary appreciated--> Fiberoptic bronchoscopy with bronchoalveolar lavage: The yesica was sharp. The right main stem bronchus was explored and no endobronchial lesion was seen. The right upper lobe, the apical posterior and anterior segments, bronchus intermedius, right middle lobe and its medial and lateral segments, and all basilar segments of right lower lobe were explored. A small amount of mucopurulent secretion lavaged from the right lower lobe and right middle lobar and segmental bronchi until clear. Minimal mucous pitting was visible throughout the right tracheobronchial tree. Left tracheobronchial tree showed no endobronchial lesions seen. Left upper lobe with the apical posterior and anterior segments, lingular subdivision, and left lower lobe were free of endobronchial lesions down to subsegmental bronchi. Each lobar segment was lavaged with normosol, and a minimal amount of mucopurulent and mucoviscous secretion was lavaged until clear. Mild inflammatory mucosal change was seen throughout the left tracheobronchial tree. No biopsies or brushings were deemed necessary. The procedure was terminated. The patient tolerated the procedure well and was transferred to the medical treatment unit hemodynamically stable with no signs of respiratory compromise. The patient was given nebulizer treatment of Xopenex 1.25 mg prior to discharge. We will await microbiological and cytologic examination of the bronchial washings. -Follow up on any results of bronchial washings after discharge Anxiety: Continue Klonopin but consider adding on SSRI GERD: Continue Protonix HTN: Hydralazine 10 mg IV PRN DVT prophylaxis: Heparin 5000 units SQ q12 hrs, TRISTON and SCDs Code Status: LEVEL I, FULL Dispo: to home today Total Time Spent: Greater than 30 minutes This includes examination of the patient, discharge planning, medication reconciliation, and communication with other providers. Discharge Instructions Please refer to the electronic Patient Visit Report (Discharge Instructions) for additional information. Follow-Up Pulm in 1 week Additional Copies To Arcenio Mason PA-C
[2016-10-28 16:42] LABS: HERPES SIMPLEX CULT SOURCE RESPIRATORY-TRACHEOB; HERPES SIMPLEX VIRUS CULT NOT ISOLATED (NOT ISOLATED)
[2016-11-05] MEDS ORDERED: ALBUTEROL NEB NEB (11:15)
[2016-11-05] MEDS ORDERED: ARFO15NE INH (11:15)
[2016-11-05] MEDS ORDERED: RANI300T2 PO (11:15)
[2016-11-05] MEDS ORDERED: SACC250C11 PO (11:15)
[2016-11-05] MEDS ORDERED: FURO-85 PO (11:15)
[2016-11-05] MEDS ORDERED: MTR400 PO (11:15)
[2016-11-05] MEDS ORDERED: VFND200 PO (11:15)
[2016-11-05] MEDS ORDERED: ATRINS NEB (11:15)
[2016-11-05] MEDS ORDERED: MULT-506 PO (11:15)
[2016-11-05] MEDS ORDERED: OMEP40CA18 PO (11:15)
[2016-11-05] MEDS ORDERED: POTA20TA16 PO (11:15)
[2016-11-05] MEDS ORDERED: MOME6000 NAE (11:15)
[2016-11-27] MEDS ORDERED: MTR400 PO (07:59)
[2017-04-26] MEDS ORDERED: PRED10TA PO (07:08)
== END 2016-10-02 14:21 | disposition home or self-care (01) | DRG 168 ==
LOC: C.MS2W 15:56
PROVIDERS: ADMIT Hospitalist; ATTEND Family Medicine
PROC: 0B9C8ZX Drainage of Right Upper Lung Lobe, Via Natural or Artificial Opening Endoscopic, Diagnostic (ICD-10-PCS; principal; 2016-10-02)
PROC: 0B9D8ZX Drainage of Right Middle Lung Lobe, Via Natural or Artificial Opening Endoscopic, Diagnostic (ICD-10-PCS; principal; 2016-10-02)
PROC: 0B9J8ZX Drainage of Left Lower Lung Lobe, Via Natural or Artificial Opening Endoscopic, Diagnostic (ICD-10-PCS; principal; 2016-10-02)
PROC: 0B9G8ZX Drainage of Left Upper Lung Lobe, Via Natural or Artificial Opening Endoscopic, Diagnostic (ICD-10-PCS; principal; 2016-10-02)
PROC: 0B9H8ZX Drainage of Lung Lingula, Via Natural or Artificial Opening Endoscopic, Diagnostic (ICD-10-PCS; principal; 2016-10-02)
DX: J45.901 Unspecified asthma with (acute) exacerbation (principal); K21.9 Gastro-esophageal reflux disease without esophagitis; F41.9 Anxiety disorder, unspecified; E66.9 Obesity, unspecified; I10 Essential (primary) hypertension; Z83.3 Family history of diabetes mellitus; Z82.49 Family history of ischemic heart disease and other diseases of the circulatory system; Z79.52 Long term (current) use of systemic steroids

== ENCOUNTER 2016-11-27 05:15 | Day surgery (SDC) | payer BC, OTHER ==
[2016-11-05 11:15] VITALS: BMI 31.0
--- NOTE | 2016-11-05 12:01 | PAT Medication Instructions ---
Service Date Nov 05, 2016. Current Home Medication List Arformoterol Tartrate (Brovana), 15 MCG INH BID Budesonide Soln (Pulmicort Respules 0.5MG/2ML), 1 VIAL NEB BID Clonazepam (Klonopin), 0.5 MG PO BID PRN for Anxiety Furosemide (Lasix), 20 MG PO 3XWK Ibuprofen (Ibuprofen), 400 MG PO Q6 PRN for Pain Ipratropium Stanley (Ipratropium Stanley), 1 VIAL NEB QID PRN for SOB/Wheezing Mometasone Furoate (Nasal) (Mometasone Furoate), 1 SPRAY KARON QAM Multivitamin (Multivitamin), 1 TAB PO QAM Omeprazole-Sodium Bicarbonate (Zegerid), 1 CAP PO QAM Potassium Ext Rel (Klor-Con), 10 MEQ PO 3XWK Ranitidine (Zantac), 300 MG PO HS Saccharomyces Boulardii (Probiotic), 1 CAP PO QAM Voriconazole (Voriconazole), 1 TAB PO BID [Albuterol Neb], 1 DOSE NEB Q4 PRN for SOB/Wheezing Medication Instructions For Your Scheduled Surgery - Hold the following medications per surgeon's instructions: Ibuprofen (Ibuprofen), 400 MG PO Q6 PRN for Pain - Hold the following medications the morning of surgery: Furosemide (Lasix), 20 MG PO 3XWK Multivitamin (Multivitamin), 1 TAB PO QAM Potassium Ext Rel (Klor-Con), 10 MEQ PO 3XWK Saccharomyces Boulardii (Probiotic), 1 CAP PO QAM - Take the following medications the morning of surgery with a sip of water OTHERWISE NOTHING TO EAT OR DRINK AFTER MIDNIGHT: [Albuterol Neb], 1 DOSE NEB Q4 PRN for SOB/Wheezing (use if needed; BRING TO HOSPITAL) Budesonide Soln (Pulmicort Respules 0.5MG/2ML), 1 VIAL NEB BID Ipratropium Stanley (Ipratropium Stanley), 1 VIAL NEB QID PRN for SOB/Wheezing Arformoterol Tartrate (Brovana), 15 MCG INH BID Omeprazole-Sodium Bicarbonate (Zegerid), 1 CAP PO QAM Clonazepam (Klonopin), 0.5 MG PO BID PRN for Anxiety Mometasone Furoate (Nasal) (Mometasone Furoate), 1 SPRAY KARON BID Voriconazole (Voriconazole), 1 TAB PO BID - Take the following medications as scheduled the night before surgery: [Albuterol Neb], 1 DOSE NEB Q4 PRN for SOB/Wheezing Budesonide Soln (Pulmicort Respules 0.5MG/2ML), 1 VIAL NEB BID Ipratropium Stanley (Ipratropium Stanley), 1 VIAL NEB QID PRN for SOB/Wheezing Arformoterol Tartrate (Brovana), 15 MCG INH BID Ranitidine (Zantac), 300 MG PO HS Clonazepam (Klonopin), 0.5 MG PO BID PRN for Anxiety Mometasone Furoate (Nasal) (Mometasone Furoate), 1 SPRAY KARON BID Voriconazole (Voriconazole), 1 TAB PO BID If you have any questions please call us at [phone] or [phone] or [phone]
[2016-11-05 12:50] LABS: BASO % 0.6 %; BASO ABS # 0.04 K/uL (0-0.2); COMPLETE YES; EOS % 2.6 %; HEMATOCRIT 40.3 % (37-47); IG% 0.3 %; LYMPH ABS # 1.94 K/uL (1.2-3.4); MEAN CELL VOLUME 92.2 fL (80-100); MEAN CORPUSCULAR HEMOGLOBIN 31.8 pg (25-34); MEAN CORPUSCULAR HGB CONC 34.5 g/dl (32-36); MEAN PLATELET VOLUME 9.1 fL (7.4-10.4); NEUT % 55.5 %; PLATELET COUNT 401 K/uL (130-400); RED BLOOD COUNT 4.37 M/uL (4.2-5.4); WHITE BLOOD COUNT 6.47 K/uL (4.8-10.8)
[~2016-11-27] VITALS: Ht 157.5 cm; Wt 78.5 kg
[~2016-11-27 05:15] MED LIST changes: -ALBU0.5N2 INH; +ALBUTEROL NEB NEB; +ARFO15NE INH; -B-COCAP2 PO; -BRVIN INH; -CALC500C3 PO; -CLON0.5T3 PO; -EPP3/2 IM; +FURO-85 PO; -FURO20TA PO; -KLN5 PO; -MCRK20 PO; -MOME50SP5; +MTR400 PO; +POTA20TA16 PO; -PRED10TA PO; +SACC250C11 PO; -SINUS MEDICATION PO; +VFND200 PO; -ZEGRID PO; -duoneb NEB
[2016-11-27 05:45] VITALS: BP 135/63; PULSE 79; TEMP 36.3; O2SAT 98; Ht 157.5 cm; Wt 78.5 kg
[2016-11-27] MEDS ORDERED: LACTATED RINGER'S 1000ML 1,000 ML IV SCH ×2 (06:00)
[2016-11-27] MEDS ORDERED: PROPOFOL IV EMULSION 10 MG/ML 20 ML VIAL IV ONE (06:51)
[2016-11-27] MEDS ORDERED: ONDANSETRON INJ 2 MG/ML 2 ML VIAL ONE (06:51)
[2016-11-27] MEDS ORDERED: DEXAMETHASONE SOD INJ 4 MG/ML VIAL ONE (06:51)
[2016-11-27] MEDS ORDERED: LIDOCAINE HCL 2% 2 ML VIAL (20MG/ML) ONE (06:51)
[2016-11-27] MEDS ORDERED: FENTANYL CITRATE INJ 50 MCG/1 ML 2 ML VIAL ONE ×2 (06:52→07:51)
[2016-11-27] MEDS ORDERED: MIDAZOLAM HCL 1 MG/ML 2ML VIAL ONE (06:52)
[2016-11-27] MEDS ORDERED: LACTATED RINGER'S 1000ML 1,000 ML IV PRN (07:24)
[2016-11-27] MEDS ORDERED: FENTANYL CITRATE INJ 50 MCG/1 ML 2 ML VIAL IV PRN (07:30)
[2016-11-27] MEDS ORDERED: ONDANSETRON INJ 2 MG/ML 2 ML VIAL IV PRN ×2 (07:30→08:00)
[2016-11-27] MEDS ORDERED: ALBUTEROL HFA INHALER 8.5 GM INH ONE (07:41)
[2016-11-27] MEDS ORDERED: HYDROCORTISONE SOD SUCCINATE 100 MG/2 ML VIAL ONE (07:41)
--- NOTE | 2016-11-27 07:53 | [facility] Post Operative Brief Note ---
Immediate Operative Summary Operative Date Nov 27, 2016. Pre-Operative Diagnosis postmenopausal bleeding Post-Operative Diagnosis postmenopausal bleeding endometrial atrophy Procedure(s) Performed 1. examination under ansthesia 2. dilation and curretage 3. Hysterosocpy Surgeon Dr. Von Freeman Specimen Technician Surgeon(s) none Estimated Blood Loss 10cc Findings atrophic endometrium Fluids (cc crystalloids) 1000 Specimens endometrial curretings Drains none Anesthesia general Complication(s) None Disposition Recovery Room / PACU
[2016-11-27] MEDS ORDERED: SODIUM CHLORIDE 0.9% 1000ML 1,000 ML IV SCH (07:54)
[2016-11-27] MEDS ORDERED: MTR400 PO (07:59)
[2016-11-27] MEDS ORDERED: IBUPROFEN 600 MG TAB PO PRN (08:00)
[2016-11-27] MEDS ORDERED: METOCLOPRAMIDE HCL INJ 5 MG/ML 2 ML VIAL IV PRN (08:00)
[2016-11-27] MEDS ORDERED: OXYCODONE/ACETAMINOPHEN 5-325 TAB PO PRN ×2 (08:00)
[2016-11-27] MEDS ORDERED: KETOROLAC TROMETHAMINE 30 MG/ML VIAL IV. PRN (08:00)
[2016-11-27] MEDS ORDERED: HYDROCODONE/ACETAMOPHEN 5/325MG TAB PO PRN ×2 (08:00)
--- NOTE | 2016-11-27 08:00 | Discharge Instructions ---
Discharge Instructions Date of Service Nov 27, 2016. Admission Reason for Admission: Post-Menopausal Bleeding Discharge Discharge Diagnosis / Problem: postmenopausal bleeding Discharge Goals Goal(s): Routine recovery after surgery Activity Recommendations Activity Limitations: as noted below ACTIVITY RECOMMENDATIONS: * Avoid tampons, douching, hot tubs, pools, and intercourse until bleeding has stopped. * May shower as usual. * No strenuous activity for 24-48 hours. After 24-48 hours, you may do anything you feel like doing (driving and sports are okay). SPECIAL CARE INSTRUCTIONS: Special Diet: * Mild nausea may occur in the immediate post-operative period. * Take clear liquids such as tea, cola or bouillon until all nausea has subsided; you may then resume your normal diet. Special Care: * Light bleeding and vaginal spotting can last from a few days to 3-4 weeks. Call your doctor if bleeding becomes heavier than the heaviest part of your period. * Check your temperature twice a day for one week. If it goes above 100.4 degrees Fahrenheit (38.0 Celsius), notify your doctor. * Call your doctor's office for an appointment for 6 weeks after your surgery. FOLLOW-UP VISIT: Call your doctor's office for an appointment for 6 weeks after your surgery. . Current Hospital Diet Patient's current hospital diet: Discharge Diet Recommended Diet: Regular Diet Procedures Procedures Performed: Hysteroscopy Dilation Currettage Pending Studies Studies pending at discharge: no Medical Emergencies . Who to Call and When: Medical Emergencies: If at any time you feel your situation is an emergency, please call 911 immediately. . Non-Emergent Contact Non-Emergency issues call your: Wind Power Project Manager, Specialist . . "Provider Documentation" section prepared by Von Freeman. . VTE Core Measure Inpt VTE Proph given/why not?: Treatment not indicated
--- NOTE | 2016-11-27 08:20 | OPERATIVE REPORT ---
DATE OF OPERATION: 11/27/2016 INDICATION FOR SURGERY: This is a 61-year-old with postmenopausal bleeding of unknown etiology. PREOPERATIVE DIAGNOSIS: Postmenopausal bleeding. POSTOPERATIVE DIAGNOSES: 1. Postmenopausal bleeding. 2. Endometrial atrophy. PROCEDURES: 1. Examination under anesthesia. 2. Dilation and curettage. 3. Hysteroscopy. SURGEON: Dr. Freeman. BUSINESS PROCESS CONSULTANT: None. ESTIMATED BLOOD LOSS: 30 mL. FINDINGS: Normal female escutcheon. No lesions on the vulva, vagina or cervix. Hysteroscopy showed endometrium to be atrophic. Both ostia are identified. There are no lesions in the uterus except for a small fibroid seen in the posterior wall of the uterus. FLUIDS: 1000 mL. SPECIMEN: Endometrial curettings. DRAINS: None. ANESTHESIA: General. ATTENDING FOR ANESTHESIA: Dr. Cortes. COMPLICATIONS: None. DISPOSITION: Stable to recovery room. OPERATION AND FINDINGS: PROCEDURE: The patient was taken to the operating room where she was prepped and draped in normal sterile fashion in dorsal lithotomy position after time out was called. Bladder was catheterized and 100 mL of clear urine was obtained. A weighted speculum was placed in the vagina. Specimen retractor was used to retract the anterior part of the vagina. Single tooth tenaculum was used to grab the cervix. Cervix was dilated to a size 24. A hysteroscope was introduced in the uterine cavity and findings of hysteroscopy is as dictated above. The hysteroscope was removed. The cervix was further dilated to a size 28 and size 1 sharp curette was introduced in the uterine cavity and curettage performed in all 4 quadrants. Curettage specimen is sent to pathology for pathological analysis. All instruments were removed from the uterus including sponges and accounted for x2. There is good hemostasis at the tenaculum site. The patient is sent to recovery in stable condition. I attest to the content of the Intraoperative Record and any orders documented therein. Any exceptio ns are noted below.
[2016-11-27 08:30] VITALS: BP 130/61; PULSE 69; TEMP 36.5; O2SAT 92
--- NOTE | 2016-11-27 08:50 | Anesthesiology Progress Note ---
Anesthesia Post Op Note Date & Time Nov 27, 2016 at 08:50 Vital Signs Pain Intensity: 4 Vital Signs Past 12 Hours Date Time Temp Pulse Resp B/P Pulse Ox O2 Delivery O2 Flow Rate FiO2 11/27/16 08:23 67 19 96 11/27/16 08:23 67 19 11/27/16 08:22 72 11 11/27/16 08:22 72 11 144/91 91 11/27/16 08:21 162/77 11/27/16 08:20 36.5 71 13 144/91 93 Room Air 11/27/16 08:17 70 18 97 11/27/16 08:17 71 18 11/27/16 08:16 146/78 11/27/16 08:12 72 16 95 11/27/16 08:12 72 16 11/27/16 08:11 143/84 11/27/16 08:07 71 12 11/27/16 08:07 72 12 88 11/27/16 08:06 155/73 11/27/16 08:02 67 13 11/27/16 08:02 68 13 98 11/27/16 08:01 152/79 11/27/16 07:57 74 13 98 11/27/16 07:57 73 13 11/27/16 07:56 149/79 11/27/16 07:52 74 16 11/27/16 07:52 73 16 96 11/27/16 07:51 158/78 11/27/16 07:47 36.4 79 16 145/83 95 Mask 10 11/27/16 07:47 79 17 145/83 96 11/27/16 07:47 79 17 11/27/16 05:45 36.3 79 20 135/63 98 Room Air Notes Mental Status: alert / awake / arousable, participated in evaluation Pt Amnestic to Procedure: Yes Nausea / Vomiting: adequately controlled Pain: adequately controlled Airway Patency, RR, SpO2: stable & adequate BP & HR: stable & adequate Hydration State: stable & adequate Anesthetic Complications: no major complications apparent Pt doing very well. Pt does not have allergy to propofol.
[2016-11-27 09:00] VITALS: BP 141/71; PULSE 70; TEMP 36.6; O2SAT 95
[2016-11-27 09:30] VITALS: BP 146/77; PULSE 71; TEMP 36.8; O2SAT 96
[2017-05-16] MEDS ORDERED: PRED10TA PO (07:08)
[2017-05-16] MEDS ORDERED: MOME6000 NAE (11:15)
[2017-05-16] MEDS ORDERED: MULT-506 PO (11:15)
[2017-05-16] MEDS ORDERED: ATRINS NEB (11:15)
[2017-05-16] MEDS ORDERED: RANI300T2 PO (11:15)
[2017-05-16] MEDS ORDERED: OMEP40CA18 PO (11:15)
[2017-05-16] MEDS ORDERED: CLON0.5T3 PO (13:28)
== END 2016-11-27 09:35 | disposition home or self-care (01) ==
LOC: C.ACU 05:15
PROVIDERS: ATTEND Obstetrics & Gynecology
DX: N95.0 Postmenopausal bleeding (principal); N85.8 Other specified noninflammatory disorders of uterus; J32.9 Chronic sinusitis, unspecified; Z79.899 Other long term (current) drug therapy

== ENCOUNTER → 2017-03-19 | Outpatient (CLI) | payer BC ==
[~2017-03-19] MED LIST changes: +ATRINS NEB; +CLON0.5T3 PO; +MOME6000 NAE; +MULT-506 PO; +OMEP40CA18 PO; +PRED10TA PO; +RANI300T2 PO
[2017-03-19 17:59] LABS: BASO % 0.1 %; BASO ABS # 0.01 K/uL (0-0.2); COMPLETE YES; EOS % 0.1 %; HEMATOCRIT 43.4 % (37-47); IG% 0.7 %; LYMPH % 10.4 %; LYMPH ABS # 1.68 K/uL (1.2-3.4); MEAN CELL VOLUME 93.9 fL (80-100); MEAN CORPUSCULAR HGB CONC 32.9 g/dl (32-36); MEAN PLATELET VOLUME 9.5 fL (7.4-10.4); MONO % 3.7 %; PLATELET COUNT 344 K/uL (130-400); RED BLOOD COUNT 4.62 M/uL (4.2-5.4)
[2017-03-19 18:33] LABS: ALT/SGPT 33 U/L (12-78); BLOOD UREA NITROGEN 17 mg/dl (7-18); BUN/CREATININE RATIO 16.8 (10-20); CALCIUM 10.7 mg/dl (8.5-10.1); CARBON DIOXIDE 26 mmol/L (21-32); CHLORIDE 106 mmol/L (98-107); GLUCOSE 112 mg/dl (70-99); MAGNESIUM 2.2 mg/dl (1.8-2.4); POTASSIUM 3.8 mmol/L (3.5-5.1); SODIUM 140 mmol/L (136-145)
[2017-03-19 18:44] LABS: ALB/GLOB RATIO 1.3 (0.9-2); ALKALINE PHOSPHATASE 52 U/L (45-117); AST/SGOT 12 U/L (15-37)
[2017-03-19 19:01] LABS: LYME DISEASE AB IGG NEG (NEG); LYME DISEASE AB IGM NEG (NEG)
--- NOTE | 2017-04-01 15:45 | CODING QUERY MEDICAL NECESSITY ---
SUPPORTING DIAGNOSIS NEEDED A supporting diagnosis is required for the test/procedure performed on this patient in order for us to be reimbursed by the patient's insurance. Please provide a supporting diagnosis for the following test/procedure listed below next to the test name along with your signature. *If there is no additional diagnosis for this patient that would support the following test/procedure please document that below next to the test/procedure. Test(s)/Procedure(s) that require a supporting diagnosis: * VIT D 1, 25 DIHYDROXY DIAGNOSIS: * VITAMIN B12 DIAGNOSIS: Provider Signature: Date: Thank you Dennise Pal 51edj Information Management Once completed, please kindly fax back to [phone] For questions please call [phone]
== END | disposition home or self-care (01) ==
LOC: C.LAB 16:00
PROVIDERS: ATTEND Physician Assistant
DX: R25.2 Cramp and spasm (principal); J45.909 Unspecified asthma, uncomplicated; B37.9 Candidiasis, unspecified

== ENCOUNTER → 2017-04-24 | Outpatient (CLI) | payer BC ==
[~2017-04-24] MED LIST changes: +ALBINS/ INH; +DOXY100C PO; +ESCI1TAB6 PO; +PLMINSR5 INH
[2017-04-24 11:17] LABS: BASO % 0.1 %; BASO ABS # 0.01 K/uL (0-0.2); COMPLETE YES; EOS % 0.3 %; HEMATOCRIT 41.5 % (37-47); IG% 0.5 %; LYMPH % 15.4 %; LYMPH ABS # 2.31 K/uL (1.2-3.4); MEAN CELL VOLUME 93.7 fL (80-100); MEAN CORPUSCULAR HEMOGLOBIN 31.4 pg (25-34); MEAN CORPUSCULAR HGB CONC 33.5 g/dl (32-36); MEAN PLATELET VOLUME 9.3 fL (7.4-10.4); MONO % 7.3 %; NEUT % 76.4 %; PLATELET COUNT 352 K/uL (130-400); RED BLOOD COUNT 4.43 M/uL (4.2-5.4); WHITE BLOOD COUNT 15.02 K/uL (4.8-10.8)
[2017-04-24 11:29] LABS: INR 0.9 (0.9-1.1)
[2017-04-24 11:40] LABS: ALT/SGPT 26 U/L (12-78); AST/SGOT 10 U/L (15-37); BLOOD UREA NITROGEN 19 mg/dl (7-18); BUN/CREATININE RATIO 20.1 (10-20); CALCIUM 9.7 mg/dl (8.5-10.1); CARBON DIOXIDE 27 mmol/L (21-32); CHLORIDE 107 mmol/L (98-107); CREATININE 0.92 mg/dl (0.60-1.20); GLUCOSE 73 mg/dl (70-99); POTASSIUM 3.9 mmol/L (3.5-5.1); SODIUM 143 mmol/L (136-145)
[2017-04-24 11:42] LABS: ALB/GLOB RATIO 1.4 (0.9-2); ALKALINE PHOSPHATASE 49 U/L (45-117)
== END | disposition home or self-care (01) ==
LOC: C.LAB 09:40
PROVIDERS: ATTEND Physician Assistant
DX: R06.2 Wheezing (principal)

== ENCOUNTER 2017-04-26 06:26 | Day surgery (SDC) | payer BC ==
[~2017-04-26] VITALS: Ht 156.2 cm; Wt 77.0 kg
[2017-04-26] VITALS (17 sets, daily range): BP systolic 126–177; BP diastolic 71–92; PULSE 66–88; TEMP 36.4–36.5; O2SAT 95–100; Ht 156.2 cm; Wt 77.0 kg
[~2017-04-26 06:26] MED LIST changes: -ALBINS/ INH; -ATRINS NEB; -CLON0.5T3 PO; -DOXY100C PO; -ESCI1TAB6 PO; -MOME6000 NAE; -MULT-506 PO; -OMEP40CA18 PO; -PLMINSR5 INH; -PRED10TA PO; -RANI300T2 PO
[2017-04-26] MEDS ORDERED: FENTANYL CITRATE 100 MCG 2 ML CARP IV ONE (06:27)
[2017-04-26] MEDS ORDERED: MIDAZOLAM HCL 5 MG/ML 10 ML IV ONE (06:27)
--- NOTE | 2017-04-26 07:42 | History and Physical ---
History & Physical Date Apr 26, 2017. Chief Complaint Recurrent Bronchiectasis vs. Asthma History of Present Illness The patient is a 61 year old female with complaints of recurrent Bronchiectasis vs. Asthma: 61-year-old female with multiple weeks shortness of breath and associated nonproductive cough with a history of asthma and previous Aspergillus growth and oral thrush.. She has noted dramatic relief in the past from bronchoscopic mechanical interventions. And she is poorly responding currently to inhalers and Solu-Medrol injections they decided move forward with bronchoscopy for evaluation of secondary infection or mucoid impaction. Active Problems 1. Abdominal pain 2. Severe COPD with an FEV1 of 41% predicted 03/14/2015 3. Gastroesophageal reflux disease without esophagitis 4. Acute bronchitis 5. Acute sinusitis 6. Aspergillus 7. Asthma pulmonary function test performed 03/14/2015 8. Back pain 9. Bone pain 10. Candidiasis 11. Chest pain of unknown etiology 12. Chronic bronchitis 13. Cough 14. Depression with anxiety 15. Diarrhea 16. Disorder of vocal cord 17. Diverticulitis of colon 18. DUB (dysfunctional uterine bleeding) 19. Edema 20. Generalized anxiety disorder 21. Hypogammaglobulinemia 22. Immunodeficiency disorder 23. Muscle cramping 24. Oral thrush 25. Venom-induced anaphylaxis 26. Nephrolithiasis Surgical History 1. History of Lithotomy 2. History of Sinus Surgery 3. History of Tonsillectomy Family History 1. Cancer 2. Diabetes Mellitus 3. Heart Disease Social History Alcohol Use (History) Being A Social Drinker Denied: History of Drug Use Marital History - Currently Never smoker Occupation Current Meds 1. Budesonide 0.5 MG/2ML Inhalation Suspension; USE 1 VIAL IN NEBULIZER ONCE DAILY. INCREASE TO TWICE DAILY WITH ILLNESS; 2. PredniSONE 10 MG Oral Tablet; take 4 tablets daily or as directed; Therapy: [id number] to (Last Rx:[id number]) Requested for: [id number] Ordered 3. Nasonex 50 MCG/ACT Nasal Suspension; USE 2 SPRAYS IN EACH NOSTRIL ONCe DAILY 4. Albuterol Sulfate (2.5 MG/3ML) 0.083% Inhalation Nebulization Solution; USE 1 UNIT DOSE IN NEBULIZER EVERY 4 HOURS NEEDED; 5. Ipratropium [place] 0.02 % Inhalation Solution; INHALE 1 UNIT DOSE Every 4 hours PRN 6. RaNITidine HCl - 300 MG Oral Tablet; TAKE 1 TABLET AT BEDTIME; 7. Ibuprofen 800 MG Oral Tablet; TAKE 1 TABLET 4 TIMES DAILY NEEDED; 8. Escitalopram Oxalate 5 MG Oral Tablet; Take 1 tablet daily; 9. Utibron Neohaler 27.5-15.6 MCG Inhalation Capsule; 1 Capsule via inhaler bid; 10. Furosemide 20 MG Oral Tablet; Take 1 tablet three times a week; 11. Potassium Chloride ER 10 MEQ Oral Capsule Extended Release; TAKE 2 CAPSULES Three times a week; 12. ClonazePAM 0.5 MG Oral Tablet; Take 1-2 tablets at bedtime; 13. Fluconazole 100 MG Oral Tablet; TAKE 1 TABLET DAILY DIRECTED; 14. Biotin CAPS; TAKE 1 CAPSULE Daily; 15. Multi Complete Oral Capsule; TAKE 1 CAPSULE DAILY 16. Vitamin C 500 MG Oral Tablet; TAKE 1 TABLET DAILY 17. Zegerid CAPS; TAKE 1 CAPSULE DAILY Allergies 1. Propofol EMUL 2. Propranolol HCl CR CPCR Past Medical/Surgical History Medical Problems: (1) Anxiety (2) Asthma (3) Asthma attack (4) Asthma exacerbation (5) Asthma with status asthmaticus Additional History Hepatic Disease: No Endocrine Disorder: Yes (DM) Kidney Disease: No Hypertension: No Heart Disease: No Bleeding Tendencies: No Infectious Diseases: Yes (Hypogammaglobulinemia ) Allergies Coded Allergies: Propofol (Verified Allergy, Unknown, SICK TO STOMACH AND DIFFICULTY BREATHING, n/v, 04/26/17) Has had since initial reaction with no problem Home Medications Scheduled Arformoterol Tartrate (Brovana), 15 MCG INH BID Budesonide Soln (Pulmicort Respules 0.5MG/2ML), 1 VIAL NEB BID Furosemide (Lasix), 20 MG PO 3XWK Mometasone Furoate (Nasal) (Mometasone Furoate), 1 SPRAY KARON QAM Multivitamin (Multivitamin), 1 TAB PO QAM Omeprazole-Sodium Bicarbonate (Zegerid), 1 CAP PO QAM Potassium Ext Rel (Klor-Con), 10 MEQ PO 3XWK Prednisone Tab (Prednisone), 10 MG PO QID Ranitidine (Zantac), 300 MG PO HS Saccharomyces Boulardii (Probiotic), 1 CAP PO QAM Scheduled PRN Clonazepam (Klonopin), 0.5 MG PO BID PRN for Anxiety Ibuprofen (Ibuprofen), 400 MG PO Q6 PRN for Pain Ipratropium [place] (Ipratropium [place]), 1 VIAL NEB QID PRN for SOB/Wheezing [Albuterol Neb], 1 DOSE NEB Q4 PRN for SOB/Wheezing Physical Examination Skin: warm/dry, no rash Eyes: normal inspection, EOMI, sclerae normal ENT: normal ENT inspection, pharynx normal Head: normocephalic, atraumatic Neck: supple, no adenopathy, trachea midline Respiratory/Chest: lungs clear, normal breath sounds, no respiratory distress Cardiovascular: regular rate, rhythm, no edema, no murmur Abdomen / GI: normal bowel sounds, non tender Back: normal inspection Extremities: normal inspection, normal range of motion Neurologic/Psych: no motor/sensory deficits, alert, normal reflexes, oriented x 3 Diagnosis ACOS associated chronic cough ASA Classification: ASA Class III Plan of Treatment Bronchoscopy with BAL to r/o infectious etiology and mechanical debridement/ mucus impaction
--- NOTE | 2017-04-26 08:25 | Procedure Note ---
Pre-Mod Sedation Assessment General Date of Moderate Sedation: Apr 26, 2017. Vital Signs: Vital Signs Past 12 Hours Date Time Temp Pulse Resp B/P (MAP) Pulse Ox O2 Delivery O2 Flow Rate FiO2 04/26/17 07:55 36.5 68 20 159/92 98 Room Air 04/26/17 07:11 36.5 68 20 159/92 (114) 98 Room Air Review Cardiovascular: regular rate, rhythm, no edema, no gallop, no JVD, no murmur Abdomen: normal bowel sounds, non tender, soft, no organomegaly, no pulsatile mass Lungs: chest non-tender, lungs clear, normal breath sounds, no respiratory distress Airway Class: III Pre-Sedation Airway Assessment Oral Cavity: WNL Able to Visualize Vocal Cords: Yes Short Thick Neck: No Hx of Sleep Apnea: Yes (nocturnal hypoxemia) Smoking Status: Never Smoker Mallampati Classification: Class III ASA Classification: Class III Procedure Planning Contraindications-for Mod Sed: None Yes Notes The planned sedation has been discussed with the patient and consent obtained. I have identified the patient, determined the appropriateness of sedation and have assessed the patient immediately prior to the procedure. All medicine(s) and interventions are by my order.
[2017-04-26] MEDS ORDERED: NURSING VERBAL MED ORDER ONE (09:00)
--- NOTE | 2017-04-26 09:07 | Procedure Note ---
Post-Moderate Sedation Plan General Date of Moderate Sedation Apr 26, 2017. Vital Signs: Vital Signs Past 12 Hours Date Time Temp Pulse Resp B/P (MAP) Pulse Ox O2 Delivery O2 Flow Rate FiO2 04/26/17 08:55 75 20 155/91 97 Nasal Cannula 4.0 04/26/17 08:50 67 16 126/91 96 Mask 4.0 04/26/17 08:45 73 18 150/77 96 Mask 4.0 04/26/17 08:40 73 20 161/73 96 Mask 4.0 04/26/17 08:35 67 18 158/84 98 Mask 4.0 04/26/17 08:30 67 18 141/82 100 Mask 4.0 04/26/17 08:25 67 18 177/88 100 Mask 4.0 04/26/17 07:55 36.5 68 20 159/92 98 Room Air 04/26/17 07:11 36.5 68 20 159/92 (114) 98 Room Air Review - Discharge Plan Post Moderate Sedation Plan: On clinical assessment, the patient appears to have tolerated the conscious sedation without complications. Patient is recovering as anticipated. Patient will continue to be monitored by nursing and may be discharged when conscious sedation discharge criteria are met.
--- NOTE | 2017-04-26 09:07 | Bronchoscopy Procedure Note ---
Bronchoscopy Procedure Note Procedure: Bronchoscopy, conscious sedation, bronchial lavage left upper lobe Consent: Obtained through the patient placed into the chart Pre-procedural diagnosis: Chronic cough Post-procedural diagnosis: Chronic cough Start time: 831 End time: 849 Total time: minutes Analgesia: 2% liquid lidocaine: Via nebulizer 4% gel lidocaine: Via right naris 2% liquid lidocaine: Via bronchoscopy Sedation: Versed IV: 8mg Fentanyl IV: 50 g Procedure: The S[employer] video bronchoscope was used for this procedure and passed down through the right naris Right naris/posterior naris/posterior oropharynx: Anatomically within normal limits Glottis: Anatomically within normal limits Vocal cords: Proper abduction and abduction, anatomically within normal limits Subglottis/trachea/Debora: Anatomically within normal limits Right bronchial tree: Right mainstem bronchus: Anatomically within normal limits Right upper lobe: Anatomically within normal limits Bronchus intermedius: Anatomically within normal limits Right middle lobe: Anatomically within normal limits Right lower lobe: Anatomically within normal limits Findings: No significant findings noted Left bronchial tree: Left mainstem bronchus: Anatomically within normal limits, moderate erythema appreciated after BAL in the left upper lobe Left upper lobe: Anatomically within normal limits Lingula: Anatomically within normal limits Left lower lobe: Anatomically within normal limits Findings: No significant findings noted Bronchial alveolar lavage: Left upper lobe EBL: None Complications: None Follow-up: In the [facility]
--- NOTE | 2017-04-26 09:13 | Discharge Instructions ---
Discharge Instructions Date of Service Apr 26, 2017. Admission Reason for Admission: Wheezing,Sob,Cough Discharge Discharge Diagnosis / Problem: chronic cough with history of COPD and asthma Discharge Goals Goal(s): Diagnostic testing Activity Recommendations Activity Limitations: resume your previous activity . Instructions / Follow-Up Instructions / Follow-Up Follow-up in the [facility] pulmonary division with provider Dank Mason or Drake Preciado Current Hospital Diet Patient's current hospital diet: Discharge Diet Recommended Diet: Regular Diet Procedures Procedures Performed: Bronchoscopy, bronchial lavage left upper lobe, conscious sedation Pending Studies Studies pending at discharge: no Medical Emergencies . Who to Call and When: Medical Emergencies: If at any time you feel your situation is an emergency, please call 911 immediately. . Non-Emergent Contact Non-Emergency issues call your: Facility Service Manager . . "Provider Documentation" section prepared by Bjorn Castro. . VTE Core Measure Inpt VTE Proph given/why not?: Treatment not indicated
[2017-04-26] MEDS ORDERED: MIDAZOLAM HCL 5 MG/ML 1 ML VIAL IV ONE (09:15)
[2017-04-26] MEDS ORDERED: FENTANYL CITRATE INJ 50 MCG/1 ML 2 ML VIAL IV ONE (09:15)
[2017-05-16] MEDS ORDERED: PRED10TA PO (07:08)
[2017-05-16] MEDS ORDERED: MOME6000 NAE (11:15)
[2017-05-16] MEDS ORDERED: MULT-506 PO (11:15)
[2017-05-16] MEDS ORDERED: RANI300T2 PO (11:15)
[2017-05-16] MEDS ORDERED: OMEP40CA18 PO (11:15)
[2017-05-16] MEDS ORDERED: ATRINS NEB (11:15)
[2017-05-16] MEDS ORDERED: CLON0.5T3 PO (13:28)
== END 2017-04-26 11:14 | disposition home or self-care (01) ==
LOC: C.ACU 06:26
PROVIDERS: ATTEND Internal Medicine Critical Care Medicine
DX: R05 Cough (principal); J44.9 Chronic obstructive pulmonary disease, unspecified; K21.9 Gastro-esophageal reflux disease without esophagitis; F32.9 Major depressive disorder, single episode, unspecified; F41.1 Generalized anxiety disorder; D80.1 Nonfamilial hypogammaglobulinemia; Z79.899 Other long term (current) drug therapy

== ENCOUNTER → 2017-05-07 | Outpatient (CLI) | payer BC ==
[~2017-05-07] MED LIST changes: +ATRINS NEB; +CLON0.5T3 PO; +MOME6000 NAE; +MULT-506 PO; +OMEP40CA18 PO; +OPTIRAY 320 IV PRN; +PRED10TA PO; +RANI300T2 PO; -VFND200 PO
--- NOTE | 2017-05-07 16:42 | DIAGNOSTIC IMAGING REPORT ---
CHEST CTA for PULMONARY ARTERIES CT DOSE: 436.12 mGy.cm HISTORY: Atypical CHEST PAIN, short of breath TECHNIQUE: Multiaxial CT images of the chest were performed following the intravenous administration of contrast to evaluate the pulmonary arteries. Maximal intensity projection images were also obtained. A dose lowering technique was utilized adhering to the principles of ALARA. COMPARISON STUDY: Chest CT 10/18/2015. FINDINGS: No evidence for an aortic dissection or pulmonary embolus. No mediastinal or hilar lymphadenopathy. The heart is normal in size. Small hiatus hernia. Fatty changes within the liver. The spleen and adrenal glands are unremarkable. No pneumothorax. No pleural effusions. The central airways are patent. No focal lung consolidations to suggest pneumonia. Calcified granuloma seen within the lingula. IMPRESSION: No evidence for pulmonary embolus. Electronically signed by: Hemanth Chang M.D. 05/07/2017 4:41 PM Dictated Date/Time: 05/07/2017 4:32 PM
== END | disposition home or self-care (01) ==
LOC: C.CTS 16:00
PROVIDERS: ATTEND Internal Medicine Pulmonary Disease
DX: J45.909 Unspecified asthma, uncomplicated (principal); R05 Cough; R07.89 Other chest pain

== ENCOUNTER 2017-05-16 17:34 | Emergency (ER) | payer BC ==
[~2017-05-16] VITALS: Ht 154.9 cm; Wt 79.2 kg
[~2017-05-16 17:34] MED LIST changes: -OPTIRAY 320 IV PRN
[2017-05-16 17:38] VITALS: TEMP 36.8; Ht 154.9 cm; Wt 79.2 kg
[2017-05-16] MEDS ORDERED: PLMINSR5 INH (19:05)
[2017-05-16] MEDS ORDERED: ESCI1TAB6 PO (19:11)
[2017-05-16] MEDS ORDERED: ALBINS/ INH (19:11)
--- NOTE | 2017-05-16 19:14 | EMERGENCY ROOM VISIT NOTE ---
ED Visit Note First contact with patient: 19:00 CHIEF COMPLAINT: Tick bite HISTORY OF PRESENT ILLNESS: This patient noticed a tick embedded in the right inner thigh this morning. She states she does have a chronic history of asthma , and her immune system is significantly decreased due to chronic use of oral corticosteroids. She states she became concerned when she noticed there was a tick with erythema and extreme tenderness on the inner thigh. She states she had a neighbor who is a nurse take a look at the wounds, who recommended with her history that she be evaluated today or since waiting to see her PCP tomorrow. The patient states she used tweezers and got some of the tick, but not all of it out. She is uncertain when she may have gotten bitten, but suspects it was yesterday morning, as she had the dog walking in the field yesterday. She denies any fever, chills, vomiting, or purulent drainage from the wound, or obvious abscess. She states she has had some nausea, but this has been going on for a few weeks. The patient has no history of Lyme disease. REVIEW OF SYSTEMS: A complete 10 point review of systems was reviewed with the patient with pertinent positives and negatives as per history of present illness. All else were negative. PMH: Asthma, anxiety ALLERGIES: Propofol MEDS: See list. SOCIAL HISTORY: Patient lives locally with family. The patient denies drug, alcohol, tobacco use. PHYSICAL EXAM: VITALS: Vitals are noted on the nurse's note and reviewed by myself. Vital signs stable. GENERAL: This is a 61-year-old white female, in no acute distress, nondiaphoretic, well-developed well-nourished. SKIN: There is a small zone of inflammation and eccymosis around the spot where the tick was with small visible, but not easily accessible tick parts retained. Otherwise, the skin was without rashes, erythema, edema, or bruising. There is no tenting of the skin. Capillary reflex less than 2 seconds. HEAD: Normocephalic atraumatic. EARS: External auditory canals clear, tympanic membranes pearly garza without erythema or effusion bilaterally. EYES: Pupils equal round and reactive to light and accommodation. Conjunctivae without injection, sclerae without icterus. Extraocular movements intact. NOSE: Patent, turbinates without inflammation or discharge. No sinus tenderness. MOUTH: Mucous membranes moist. Tonsils are not enlarged. Pharynx without erythema or exudate. Uvula midline. Airway patent. Tongue does not deviate. NECK: Supple without nuchal rigidity. No lymphadenopathy. No thyromegaly. Cervical spine is nontender. No JVD. MUSCULOSKELETAL: No muscle atrophy, erythema, or edema noted. Full range of motion without joint tenderness in all extremities. No tenderness to palpation. Normal gait. Strength 5/5 throughout. NEURO: Patient was alert and oriented to person place and time. Normal sensation to light and sharp touch. Deep tendon reflexes 2+ throughout. No focal neurological deficits. ED TREATMENT: The patient was seen and evaluated as above. Verbal consent was obtained to perform the procedure. A small amount of 1% buffered lidocaine without epinephrine was used to anesthetize the area. This was injected just below the obvious tick parts. This did push the tick parts to the surface enough that they were easily removed with forceps. The patient tolerated the procedure very well. The wound was dressed with bacitracin ointment and a bandage. Discharge instructions reviewed. Due to the patient's history, she was started on antibiotics. The patient was discharged home in good condition. I attest that I have personally reviewed the patient's current medication list. Patient was found to have normal blood pressure on screening and does not require follow-up. DIFFERENTIAL DIAGNOSIS: Tick bite, insect bite, cellulitis, abscess, infection, Lyme disease, malignancy, and others DIAGNOSIS: Tick bite with mild cellulitis Problem List Medical Problems: (1) Anxiety Status: Chronic (2) Asthma Status: Chronic (3) Asthma with status asthmaticus Status: Resolved Current/Historical Medications Scheduled Doxycycline Hyclate (Vibramycin), 100 MG PO BID Escitalopram Oxalate (Lexapro), 5 MG PO DAILY Mometasone Furoate (Nasal) (Mometasone Furoate), 1 SPRAY KARON QAM Multivitamin (Multivitamin), 1 TAB PO QAM Omeprazole-Sodium Bicarbonate (Zegerid), 1 CAP PO QAM Prednisone Tab (Prednisone), 10 MG PO TID Ranitidine (Zantac), 300 MG PO HS Scheduled PRN Albuterol Sulf (Proventil 0.083% 2.5MG/3ML), 2.5 MG INH Q4 PRN for SOB/Wheezing Arformoterol Tartrate (Brovana), 15 MCG INH BID PRN for SOB/Wheezing Budesonide (Pulmicort Respules 0.5MG/2ML), 2 ML INH BID PRN for SOB/Wheezing Clonazepam (Klonopin), 0.5 MG PO BID PRN for Anxiety Ibuprofen (Ibuprofen), 400 MG PO Q6 PRN for Pain Ipratropium [place] (Ipratropium [place]), 1 VIAL NEB QID PRN for SOB/Wheezing Allergies Coded Allergies: Propofol (Verified Allergy, Unknown, SICK TO STOMACH AND DIFFICULTY BREATHING, n/v, 04/26/17) Has had since initial reaction with no problem Vital Signs Date Time Temp Pulse Resp B/P (MAP) Pulse Ox O2 Delivery O2 Flow Rate FiO2 05/16/17 19:34 84 20 122/78 98 05/16/17 17:38 36.8 112 20 154/85 96 Room Air Medications Administered Medications (Trade) Dose Ordered Sig/Raheem Route Start Time Stop Time Status Last Admin Dose Admin Doxycycline Hyclate (Vibramycin Cap) 100 mg NOW STAT PO 05/16/17 19:15 05/16/17 19:18 DC 05/16/17 19:30 100 MG Departure Information Impression Primary Impression: Tick bite Additional Impression: Cellulitis Dispostion Home / Self-Care Condition GOOD Prescriptions Doxycycline Hyclate (VIBRAMYCIN) 100 Mg Cap 100 MG PO BID for 10 Days, #20 CAP Prov: Josiane Kessler PA-C 05/16/17 Referrals Arcenio Mason PA-C (PCP) Patient Instructions ED Bite Tick Tommie Carpenter, My [facility] Additional Instructions You were seen in the emergency department today for a tick bite. The pieces which remained of the tick were removed successfully. You were prescribed doxycycline to be taken twice daily. This is an antibiotic. All antibiotics have the potential to cause diarrhea. Stop this medication and contact a medical provider if you were to develop any significant adverse side effects including: wheezing, shortness of breath, passing out, vomiting, or a diffuse rash. Always take antibiotics as directed and COMPLETE the ENTIRE course regardless of the improvement of your symptoms. Proper wound care is essential for adequate wound healing and infection prevention. You can shower and clean the wound with soap and water. Do not scour over the wound, pat dry with a towel. Do not submerse the wound (i.e. bathe or dish wash) until the wound has fully healed. You can use an antibiotic ointment with a dressing over the wound for the next 3-4 days. After this time you may leave the wound dry and open to the air. Return to emergency Department for concerning fever, rash, chills, nausea, vomiting, purulent drainage, or other concerning symptoms. Problem Qualifiers Primary Impression: Tick bite Encounter type: initial encounter Qualified Codes: W57.XXXA - Bitten or stung by nonvenomous insect and other nonvenomous arthropods, initial encounter Additional Impression: Cellulitis Site of cellulitis: extremity Site of cellulitis of extremity: lower extremity Laterality: left Qualified Codes: L03.116 - Cellulitis of left lower limb
[2017-05-16] MEDS ORDERED: DOXYCYCLINE HYCLATE 100 MG CAP PO STA (19:15)
[2017-05-16] MEDS ORDERED: XYLOCAINE 1%/SOD BICARB 20 ML VIAL INFIL ONE (19:15)
[2017-05-16] MEDS ORDERED: DOXY100C PO (19:16)
[2017-05-16 19:34] VITALS: BP 122/78; PULSE 84; O2SAT 98
== END 2017-05-16 19:36 | disposition home or self-care (01) ==
LOC: C.EDB 17:35 → C.EDD 19:36
DX: S70.361A Insect bite (nonvenomous), right thigh, initial encounter (principal); W57.XXXA Bitten or stung by nonvenomous insect and other nonvenomous arthropods, initial encounter; L03.115 Cellulitis of right lower limb; F41.9 Anxiety disorder, unspecified; J45.909 Unspecified asthma, uncomplicated; Z79.899 Other long term (current) drug therapy; Z88.8 Allergy status to other drugs, medicaments and biological substances

== ENCOUNTER 2017-06-21 07:39 | Observation (INO) | payer BC ==
[2017-06-21] VITALS (28 sets, daily range): BP systolic 119–198; BP diastolic 62–99; PULSE 70–97; TEMP 36.4–37; O2SAT 94–100; Ht 154.9 cm; Wt 76.7 kg
[~2017-06-21] VITALS: Ht 154.9 cm; Wt 76.7 kg
[~2017-06-21 07:39] MED LIST changes: +ALBINS/ INH; -ALBUTEROL NEB NEB; -BUDE0.5S NEB; +ESCI1TAB6 PO; -FURO-85 PO; +PLMINSR5 INH; -POTA20TA16 PO; -SACC250C11 PO
[2017-06-21] MEDS ORDERED: OXGN (08:14)
--- NOTE | 2017-06-21 09:10 | Procedure Note ---
Pre-Mod Sedation Assessment General Date of Moderate Sedation: Jun 21, 2017. Vital Signs: Vital Signs Past 12 Hours Date Time Temp Pulse Resp B/P (MAP) Pulse Ox O2 Delivery O2 Flow Rate FiO2 06/21/17 08:50 36.7 74 18 156/75 97 Room Air 06/21/17 08:21 36.4 77 21 156/75 (102) 97 Room Air Review Airway Class: II Pre-Sedation Airway Assessment Oral Cavity: Capped Teeth Short Thick Neck: No Hx of Sleep Apnea: No Smoking Status: Never Smoker Mallampati Classification: Class II Procedure Planning Contraindications-for Mod Sed: None Yes Notes The planned sedation has been discussed with the patient and consent obtained. I have identified the patient, determined the appropriateness of sedation and have assessed the patient immediately prior to the procedure. All medicine(s) and interventions are by my order.
[2017-06-21] MEDS ORDERED: NURSING VERBAL MED ORDER ONE ×3 (09:15→11:15)
[2017-06-21] MEDS ORDERED: DEXTROSE 5% 1000ML 1,000 ML IV SCH (09:30)
[2017-06-21] MEDS ORDERED: FENTANYL CITRATE INJ 50 MCG/1 ML 2 ML VIAL IV ONE (10:45)
[2017-06-21] MEDS ORDERED: MIDAZOLAM HCL 5 MG/ML 1 ML VIAL IV ONE (10:45)
--- NOTE | 2017-06-21 12:11 | OPERATIVE REPORT ---
DATE OF OPERATION: 06/21/2017 PROCEDURE: Fiberoptic bronchoscopy with bronchoalveolar lavage. INDICATIONS: History of chronic persistent asthma, rule out mucoid impaction with persistent symptomatology. ANESTHESIA PREOPERATIVELY: None. ANESTHESIA DURING PROCEDURE: 8 mg IV Versed, 100 mcg IV fentanyl, 20 mL 2% Xylocaine spray above and below the cords, and 4% viscous Xylocaine intranasally. DESCRIPTION OF PROCEDURE: Fiberoptic bronchoscope was inserted into the left naris with minimal difficulty and passed to the level of the true vocal cords. The oropharyngeal aperture was somewhat narrowed, but patent. The scope was passed to the level of the cords, which approximate normally with phonation without evidence of lesions or paralysis. The false cords were mildly edematous, but no airway of obstruction was noted. No stridor was noted. No evidence of vocal cord dyskinesia was noted. The area was anesthetized with 2% Xylocaine spray and the scope was passed into the trachea and right and left tracheobronchial tree. The yesica was sharp. The right main stem bronchus was found to be free of endobronchial lesions. Right upper lobe, the apical posterior, anterior segments, bronchus intermedius, right middle lobe and medial lateral segments and all basilar segments of right lower lobe were found to be free of endobronchial lesions. A small amount of mucopurulent secretion was lavaged from all lobar segments until clear. Left tracheobronchial tree showed mild to moderate degree of global inflammatory mucosal change. Left upper lobe, the apical-posterior and anterior segments, lingular subdivision and left lower lobe were found to be free of endobronchial lesions down to subsegmental bronchi. Small amount of mucopurulent secretion was lavaged from left lower lobe until clear. Procedure was terminated. The patient tolerated the procedure well and was given a nebulizer treatment with Xopenex 1.25 mg and then transferred to the medical treatment unit in hemodynamically stable with no signs of respiratory compromise. We will await microbiological and cytological examination of the bronchial washings. While being recovered at the same day of surgery, the patient was examined and complained of chest tightness, but did not appear breathless or dyspneic. She was administered an additional nebulizer treatment with DuoNeb and 40 mg of IV Solu-Medrol to be reevaluated in 30 minutes. We will await microbiological and cytological examination of the bronchial washings. I attest to the content of the Intraoperative Record and any orders documented therein. Any exception s are noted below.
[2017-06-21] MEDS ORDERED: METHYLPREDNISOLONE IV 40 MG in SYRINGE 0 ML IV SCH (14:30)
[2017-06-21] MEDS ORDERED: ONDANSETRON INJ 2 MG/ML 2 ML VIAL IV PRN (14:30)
[2017-06-21] MEDS ORDERED: ALUMINUM/MAGNESIUM/SIMETH (MAALOX MAX) 30 ML UDC PO PRN (14:30)
[2017-06-21] MEDS ORDERED: CLONAZEPAM 0.5 MG TAB PO PRN (14:30)
[2017-06-21] MEDS ORDERED: BUDESONIDE 0.5 MG/2 ML VIAL (PULMICORT) INH PRN (14:30)
[2017-06-21] MEDS ORDERED: IBUPROFEN 200 MG TAB PO PRN (14:30)
[2017-06-21] MEDS ORDERED: NON-FORMULARY MEDICATION (Home O2 Therapy (Oxygen) 2 LITER) SCH (14:30)
[2017-06-21] MEDS ORDERED: ACETAMINOPHEN 325 MG TAB PO PRN (14:30)
[2017-06-21] MEDS ORDERED: ALBUT/IPRATROP 3MG/0.5MG NEB 3 ML VIAL INH PRN (14:30)
--- NOTE | 2017-06-21 14:56 | History and Physical ---
History & Physical Date & Time of Service: Jun 21, 2017 at 14:53 Chief Complaint: Asthma, Cough, Chronic Bronchitis Primary Care Physician: Drake Preciado M.D. History of Present Illness This 62-year-old female has had refractory asthma. She is brought in for bronchoscopy with Dr. Preciado today. Post procedure she was having some increased bronchospasm. He recommended she be observed in our facility for treatment and hopefully correction of her asthmatic exacerbation over the next 24 hours. Most recently the patient has had increased dyspnea and she's had no fever she' s had a nonproductive cough she's had no other changes in her physical body she does feel that she gets some reflux and is on both a PPI and H2 olinda. If she does have some overlying anxiety. Past Medical/Surgical History Medical Problems: (1) Anxiety Status: Chronic (2) Asthma Status: Chronic (3) Asthma with status asthmaticus Status: Resolved Social History Smoking Status: Never Smoker Marital Status: Housing status: lives with family Immunizations History of Influenza Vaccine: Yes Influenza Vaccine Date: Apr 02, 2012 History of Tetanus Vaccine?: Unknown History of Pneumococcal: Yes Pneumococcal Date: Aug 02, 2009 History of Hepatitis B Vaccine: No Multi-Drug Resistant Organisms History of MDRO: No Allergies Coded Allergies: Propofol (Verified Allergy, Unknown, SICK TO STOMACH AND DIFFICULTY BREATHING, n/v, 06/21/17) Has had since initial reaction with no problem Home Medications Scheduled Escitalopram Oxalate (Lexapro), 5 MG PO DAILY Home O2 Therapy (Oxygen), 2 LITER NA PRN Mometasone Furoate (Nasal) (Mometasone Furoate), 1 SPRAY KARON QAM Multivitamin (Multivitamin), 1 TAB PO QAM Omeprazole-Sodium Bicarbonate (Zegerid), 1 CAP PO QAM Prednisone Tab (Prednisone), 40 MG PO DAILY Ranitidine (Zantac), 300 MG PO HS Scheduled PRN Albuterol Sulf (Proventil 0.083% 2.5MG/3ML), 2.5 MG INH Q4 PRN for SOB/Wheezing Arformoterol Tartrate (Brovana), 15 MCG INH BID PRN for SOB/Wheezing Budesonide (Pulmicort Respules 0.5MG/2ML), 2 ML INH BID PRN for SOB/Wheezing Clonazepam (Klonopin), 0.5 MG PO BID PRN for Anxiety Ibuprofen (Ibuprofen), 400 MG PO Q6 PRN for Pain Ipratropium [place] (Ipratropium [place]), 1 VIAL NEB QID PRN for SOB/Wheezing Review of Systems ROS: well nourished well developed No double vision blurry vision No problems with speech or swallowing however when her asthma exacerbates she feels she has tightness in her throat No palpitations, she feels chest pressure or tightness when she has an asthma exacerbation Increased Wheezing difficulty catching her breath No abdominal pain nausea vomiting diarrhea changes in appetite or weight No burning urine urine frequency or changes in color No focal joint pain or muscle pain No skin rashes or oral lesions No unusual bruising or bleeding No focused back pain or numbness or loss of strength No changes in memory or confusion Physical Exam Vital Signs Date Time Temp Pulse Resp B/P (MAP) Pulse Ox O2 Delivery O2 Flow Rate FiO2 06/21/17 13:49 36.9 80 18 119/62 95 Room Air 06/21/17 13:01 36.8 80 20 134/82 97 Room Air 06/21/17 12:32 36.4 74 20 143/85 96 Room Air 06/21/17 11:58 Nasal Cannula 06/21/17 11:45 36.5 80 20 152/71 97 Room Air 06/21/17 11:28 70 18 97 Nasal Cannula 2.0 06/21/17 11:26 76 20 142/70 99 Nasal Cannula 2 06/21/17 10:55 36.5 83 20 155/84 97 Nasal Cannula 2 06/21/17 10:29 97 20 158/82 99 Nasal Cannula 3 06/21/17 10:18 97 Nasal Cannula 3 06/21/17 10:09 85 22 147/74 98 Nasal Cannula 4 06/21/17 09:52 36.6 94 22 158/86 97 Nasal Cannula 4 06/21/17 09:47 21 95 Nasal Cannula 4.0 06/21/17 09:42 82 21 147/88 98 Mask 4.0 06/21/17 09:37 83 18 198/92 96 Mask 4.0 06/21/17 09:32 84 16 166/99 97 Mask 4.0 06/21/17 09:27 79 16 175/90 99 Mask 4.0 06/21/17 09:20 81 18 195/98 100 Mask 4.0 06/21/17 08:50 36.7 74 18 156/75 97 Room Air 06/21/17 08:21 36.4 77 21 156/75 (102) 97 Room Air General Appearance: WD/WN, + mild distress, + moderate distress Eyes: PERRL, EOMI Neck: supple, no JVD Respiratory/Chest: + pertinent finding (patient has very poor air movement no focal loss of breath sounds or wheezing but coughs violently with attempts of deep breathing) Cardiovascular: regular rate, rhythm, no murmur Abdomen/GI: normal bowel sounds, non tender, soft Back: no CVA tenderness, no muscle spasm Extremities/Musculoskelatal: no pedal edema, normal range of motion Neurologic/Psych: alert, oriented x 3 Skin: normal color, warm/dry, no rash Diagnostics Laboratory Results Results Past 24 Hours Test 06/21/17 00:00 Range/Units Microbiology Results 06/21/17 Fungal Smear - Final, Resulted 06/21/17 Fungal Culture, Resulted Pending 06/21/17 Acid Fast Stain, Received Pending 06/21/17 Mycobacterial Culture, Received Pending 06/21/17 Gram Stain - Final, Resulted 06/21/17 Bronchoalveolar Lavage Culture, Resulted Pending Impression Assessment and Plan 61-year-old female here with asthma exacerbation status post bronchoscopy next Patient be observed in our facility should be on DuoNeb's and formoterol nebulized treatment she'll of Solu-Medrol every 6 hours will add azithromycin in case of a bronchitic component of note the patient has had a history of aspergillosis in the past, continue Pulmicort oxygen as needed with a pulmonary medicine consult For her anxiety and depression she'll continue Lexapro 5 and clonazepam as needed For allergic rhinitis Nasacort Chan GERD. The patient only on omeprazole and Zantac Lovenox as DVT prevention patient is full code VTE Prophylaxis VTE Risk Assessment Done? Y/N: Yes Risk Level: Moderate
[2017-06-21] MEDS ORDERED: LORAZEPAM 2 MG/ML 1 ML VIAL IV PRN ×2 (15:00)
[2017-06-21] MEDS ORDERED: OXYCODONE HCL IR 5 MG TAB (IMMEDIATE RELEASE) PO PRN (15:00)
[2017-06-21] MEDS ORDERED: AZITHROMYCIN IV 500 MG in DEXTROSE 5% 250ML 250 ML IV ONE (16:30)
[2017-06-21 16:46] LABS: HEMATOCRIT 41.1 % (37-47); MEAN CELL VOLUME 95.8 fL (80-100); MEAN CORPUSCULAR HEMOGLOBIN 31.7 pg (25-34); MEAN CORPUSCULAR HGB CONC 33.1 g/dl (32-36); PLATELET COUNT 303 K/uL (130-400); RED BLOOD COUNT 4.29 M/uL (4.2-5.4); WHITE BLOOD COUNT 13.15 K/uL (4.8-10.8)
[2017-06-21 16:57] LABS: INR 0.9 (0.9-1.1)
[2017-06-21] MEDS ORDERED: IV FLUIDS COMPLETED PRN (17:00)
[2017-06-21] MEDS ORDERED: PNEUMOCOCCAL POLYSACCHARIDES 25 MCG/0.5 ML VIAL/SYR IM. ONE (17:00)
[2017-06-21] MEDS ORDERED: INFLUENZA VIRUS QUAD VACCINE 0.5 ML SYR IM. ONE (17:00)
[2017-06-21] MEDS ORDERED: INFLUENZA ADMINISTRATION CHARGE ONE (17:00)
[2017-06-21] MEDS ORDERED: PNEUMOCOCCAL ADMINISTRATION CHARGE ONE (17:00)
[2017-06-21 17:04] LABS: CREATININE 1.21 mg/dl (0.60-1.20)
--- NOTE | 2017-06-21 17:12 | Pulmonary Consultation ---
History General Date of Service: Jun 21, 2017. Stated Complaint: Asthma, Cough, Chronic Bronchitis HPI The patient is a 61 year old female who presents to [facility] with complaints of Asthma, Cough, Chronic Bronchitis. The patient's primary care provider is Drake Preciado M.D.. Mrs. Greer is a 61-year-old white female who presented for bronchoscopy today. She is well known to the [facility] and is a patient of Dr. Preciado. She tolerated procedure well, but became bronchospastic post procedure. VS post procedure were Tm 36.4, BP 119/62-198/92, P 70-97, RR 16-22, SaO2 94-100% on 2- 4 L NC. She was given solumedrol 40 mg IV and admitted for observation. She was given Azithromycin 500 mg IV and continued on , Budesonide, Perforomist BID and DuoNeb q4-6h prn. At the time of my evaluation, she was saturation 97% on RA and no acute respiration distress. She denies any fever, chills, shortness of breath, chest pain, dyspnea at rest, wheezing, chest tightness, cough or productive sputum. Labs pending. Her past pulmonary history obtained from outpatient record of Dr. Preciado from June 01, 2017. "She presents with progressive symptoms of dyspnea and chest tightness. Her past medical she has included a diagnosis of severe chronic persistent asthmatic bronchitis and possible vocal cord dysfunction along with GERD, anxiety and either variable or specific hypogammaglobulinemia in the setting of chronic steroids. He has had multiple and frequent exacerbations has been evaluated in 2012 at [facility] without demonstrable vocal cord dyskinesia demonstrated. She has undergone bronchoscopy 2011, 2012, 2013, 2015 and most recently April 2017. Aspergillus fumigatus was grown out of 1 of the bronchial washings in September 2016. She has been evaluated by Dr. Kendrick in the past for bronchial thermoplasty as well as by Dr Lou/[facility] but could not get approved by insurance to cover the cost. 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 She feels guilty that she can't contribute financially in the significant weight the household expenses while her still works full-time. CT scan of the chest in November 2015 showed no acute abnormalities stress echo in October 2015 showed normal LVEF with class 1 diastolic dysfunction but no stress-induced ischemic changes. Most recent CTA on 05/10/2017 showed no evidence for pulmonary thromboembolic disease or an interstitial process. PFTs in June 2014 showed 13 percent improvement post bronchodilator in forced vital capacity and 19 percent improvement in FEV1 post bronchodilator. Marked improvement in 2014 with a 45 percent improvement in forced vital capacity post bronchodilator and 44 percent improvement in FEV1 post bronchodilator. She has required high-dose steroid therapy including IM Solu- Medrol and recently has been placed on a high-dose prednisone course. When she was weaned to 10 or 20 milligrams daily she became extremely symptomatic with chest tightness. She was just sitting at work when the symptoms came on. She has no occupational exposure history and she has also been prescribed clonazepam for anxiety. She has been fully evaluated at [facility] as well in the past. She currently uses her nebulizer with DuoNeb b.i.d. and as budesonide 0.5 milligrams/2 mL to the albuterol via nebulizer b.i.d.. She is on anti reflux medication and did not respond to Utibron neohaler. Most recent PFTs on 05/31/2017 show forced vital capacity 1.24 liters of 44 percent of predicted with an FEV1 of 1.12 liters or 50 percent of predicted with a ratio of 90 percent no significant response to bronchodilator was shown. Lung volumes did not show significant air trapping or hyperinflation but rather a moderate restrictive enter defect with a total lung capacity of only 61 percent of predicted. Diffusion capacity was depressed. She is using oxygen at 2 liters at night and p.r.n. during the day. She has had low levels of Ig E in the past therefore not a candidate for subcutaneous injection. Bronchial washings of grown out Moraxella catarrhalis in the past and CT scan of the sinuses a shown maxillary sinusitis in the past. She has been evaluated by Dr. Sprague in the past. Nebulizer treatment with formoterol caused her to pass out. Allergy evaluation with Dr. Belle showed an IgG level was depressed at 491 in September 2008. At [facility] she was evaluated by doctors Kwame/. Staph infection by bronchial washings has been stem straight as well. She has responded mildly IVIG but has never been on Hizentra therapy. She was seen in the ER on 05/[address] Ojeda for tick bite. And given doxycycline for 10 days." Historian: patient, other (EMR-Dr. Preciado's note) Review of Systems Constitutional: reports: as stated in HPI Eyes: reports: as stated in HPI ENT: reports: as stated in HPI Cardiovascular: reports: as stated in HPI Respiratory: reports: as stated in HPI Gastrointestinal: reports: as stated in HPI Genitourinary - Female: reports: as stated in HPI Musculoskeletal: reports: as stated in HPI Integumentary: reports: as stated in HPI Neurologic: reports: as stated in HPI Psychiatric: reports: as stated in HPI Endocrine: as stated in HPI Hematologic / Lymphatic: as stated in HPI Allergic / Immunologic: as stated in HPI All Other Symptoms All Other Systems: Reviewed and Negative Past Medical History Past Medical History: Active Problems 1. Abdominal pain (R10.9) 2. Abrasion (T14.8XXA) 3. Acid reflux (K21.9) 4. Acute bronchitis (J20.9) 5. Acute sinusitis (J01.90) 6. Aspergillus (B44.9) 7. Asthma (J45.909) 8. Back pain (M54.9) 9. Bone pain (M89.8X9) 10. Candidiasis (B37.9) 11. Chest pain of unknown etiology (R07.89) 12. Chronic bronchitis (J42) 13. Chronic pain (G89.29) 14. Cough (R05) 15. Depression with anxiety (F41.8) 16. Diarrhea (R19.7) 17. Disorder of vocal cord (J38.3) 18. Diverticulitis of colon (K57.32) 19. DUB (dysfunctional uterine bleeding) (N93.8) 20. Edema (R60.9) 21. Gastroesophageal reflux disease without esophagitis (K21.9) 22. Generalized anxiety disorder (F41.1) 23. Hypogammaglobulinemia (D80.1) 24. Immunodeficiency disorder (D84.9) 25. Muscle cramping (R25.2) 26. Oral thrush (B37.0) 27. Shortness of breath (R06.02) 28. Venom-induced anaphylaxis (T63.91XA) 29. Wheezing (R06.2) Past Medical History 1. History of Recurrent kidney stones (N20.0) Past Surgical History: Surgical History 1. History of Lithotomy 2. History of Sinus Surgery 3. History of Tonsillectomy Family History Family History 1. Family history of Cancer 2. Family history of Diabetes Mellitus 3. Family history of Heart Disease 4. Family history of Cancer 5. Family history of Cancer 6. Family history of Diabetes Mellitus 7. Family history of Heart Disease Social History Social History Alcohol Use (History) Being A Social Drinker Denied: History of Drug Use Marital History - Currently Never smoker Hx Tobacco Use In Past Year?: No Smoking Status: Never Smoker Marital status: Housing status: lives with family Immunizations History of Influenza Vaccine: Yes Influenza Vaccine Date: Apr 02, 2012 History of Tetanus Vaccine?: Unknown History of Pneumococcal: Yes Pneumococcal Date: Aug 02, 2009 History of Hepatitis B Vaccine: No History of MDRO History of MDRO: No Allergies Coded Allergies: Propofol (Verified Allergy, Unknown, SICK TO STOMACH AND DIFFICULTY BREATHING, n/v, 06/21/17) Has had since initial reaction with no problem Current Medications Reported Home Medications Medications Dose Route/Sig Max Daily Dose Days Date Category Oxygen Gas 2 Liter NA PRN 06/21/17 Reported Lexapro (Escitalopram Oxalate) 5 Mg Tab 5 Mg PO DAILY 05/16/17 Reported Proventil 0.083% 2.5MG/3ML (Albuterol Sulf) 2.5 Mg/3 Ml Nebu 2.5 Mg INH Q4 PRN 05/16/17 Reported Pulmicort Respules 0.5MG/2ML (Budesonide) 0.5 Mg/2 Ml Nebu 2 Ml INH BID PRN 05/16/17 Reported Prednisone 10 Mg Tab 40 Mg PO DAILY 04/26/17 Reported Ibuprofen 400 Mg Tab 400 Mg PO Q6 PRN 11/27/16 Rx Zegerid (Omeprazole-Sodium Bicarbonate) 1 Cap Cap 1 Cap PO QAM 11/05/16 Reported Zantac (Ranitidine HCl) 300 Mg Tab 300 Mg PO HS 11/05/16 Reported Mometasone Furoate (Mometasone Furoate (Nasal)) 50 Mcg/Act Spr 1 [place] KARON QAM 11/05/16 Reported Multivitamin (Multivitamins) Tab 1 Tab PO QAM 11/05/16 Reported Ipratropium [place] 0.5 Mg/2.5 Ml Nebu 1 Vial NEB QID PRN 30 11/05/16 Reported Brovana (Arformoterol Tartrate) 15 Mcg/2 Ml Neb 15 Mcg INH BID PRN 11/05/16 Reported Klonopin (Clonazepam) 0.5 Mg Tab 0.5 Mg PO BID PRN 12/25/15 Reported Physical Physical Exam Vital Signs: Date Time Temp Pulse Resp B/P (MAP) Pulse Ox O2 Delivery O2 Flow Rate FiO2 06/21/17 15:09 36.8 82 18 137/79 96 Room Air 06/21/17 13:49 36.9 80 18 119/62 95 Room Air 06/21/17 13:01 36.8 80 20 134/82 97 Room Air 06/21/17 12:32 36.4 74 20 143/85 96 Room Air 06/21/17 11:58 Nasal Cannula 06/21/17 11:45 36.5 80 20 152/71 97 Room Air 06/21/17 11:28 70 18 97 Nasal Cannula 2.0 06/21/17 11:26 76 20 142/70 99 Nasal Cannula 2 06/21/17 10:55 36.5 83 20 155/84 97 Nasal Cannula 2 06/21/17 10:29 97 20 158/82 99 Nasal Cannula 3 06/21/17 10:18 97 Nasal Cannula 3 06/21/17 10:09 85 22 147/74 98 Nasal Cannula 4 06/21/17 09:52 36.6 94 22 158/86 97 Nasal Cannula 4 06/21/17 09:47 21 95 Nasal Cannula 4.0 06/21/17 09:42 82 21 147/88 98 Mask 4.0 06/21/17 09:37 83 18 198/92 96 Mask 4.0 06/21/17 09:32 84 16 166/99 97 Mask 4.0 06/21/17 09:27 79 16 175/90 99 Mask 4.0 06/21/17 09:20 81 18 195/98 100 Mask 4.0 06/21/17 08:50 36.7 74 18 156/75 97 Room Air 06/21/17 08:21 36.4 77 21 156/75 (102) 97 Room Air General Appearance: WELL-APPEARING, WD/WN, NO APPARENT DISTRESS Head: NORMOCEPHALIC, ATRAUMATIC Eyes: PERRLA, NO DISCHARGE, EOMI ENT: NORMAL MOUTH EXAM, other (Mallampati II) Neck: NORMAL RANGE OF MOTION, NO TENDERNESS, TRACHEA MIDLINE, NO STRIDOR, SUPPLE, other (Short, thick neck) Respiratory: BREATH SOUNDS NORMAL, CLEAR TO AUSCULTATION, NO RESPIRATORY DISTRESS Cardiovasular: REGULAR RATE/RHYTHM, NORMAL S1S2, NO M/G/R Abdomen: NON TENDER, NORMAL BOWEL SOUNDS, NO REBOUND, other (Obese) Back: NORMAL INSPECTION Upper Extremities: NO EDEMA, NO DEFORMITY, NORMAL ROM, other (no cyanosis, no clubbing) Lower Extremities: NO EDEMA, NO DEFORMITY, NORMAL ROM Neuro: ALERT, ORIENTED x 3, NORMAL MOTOR EXAM Psychiatric: NORMAL AFFECT, NO SUICIDAL IDEATION, CONTRACTS FOR SAFETY Diagnostics Labs Results Past 24 Hours Test 06/21/17 00:00 Range/Units Microbiology Results 06/21/17 Fungal Smear - Final, Resulted 06/21/17 Fungal Culture, Resulted Pending 06/21/17 Acid Fast Stain, Received Pending 06/21/17 Mycobacterial Culture, Received Pending 06/21/17 Gram Stain - Final, Resulted 06/21/17 Bronchoalveolar Lavage Culture, Resulted Pending Diagnostic Radiology No imaging at this time. CT chest from 05/07/2017--no evidence of pulmonary embolism; calcified granuloma in lingula. CXR 09/30/2016--no cardiopulmonary disease. Impression Assessment and Plan Moderate persistent asthma Possible vocal cord dysfunction Hypogammaglobemia History previous Aspergillus infection GERD Allergic rhinits Mrs. Greer is a 61 year old female with extensive pulmonary history. She presented today for bronchoscopy with Dr. Preciado. She became bronchospatic post-procedure and admitted for observation. She is not in any acute respiratory distress and saturating well without supplemental oxygen. Recommendations Continue with supplemental oxygenation as needed to maintain Sao2 > 92%. Continue with azithromycin for 5 days. Switch over to oral azithromycin in AM. Continue with corticosteroids IV for now, can probably switch over to oral prednisone tomorrow. Continue with ICS, bronchodilators as schedule and prn. Continue with protonix and ranitidine for GERD Continue with nasal spray for rhinitis. Continue with anxiolytics for anxiety disorder. F/u Labs and bronchoscopy cultures. Continue with DVT ppx. I appreciate the consult. She can probably be discharged tomorrow if clinically stable overnight. She should follow with Dr. Preciado in 1-2 weeks post hospital discharge.
[2017-06-21] MEDS ORDERED: HydrALAZINE HCL 20 MG/ML VIAL IV PRN (17:30)
[2017-06-21] MEDS: METHYLPREDNISOLONE IV 40 MG in SYRINGE 0 ML IV SCH (18:37)
[2017-06-21] MEDS ORDERED: ENOXAPARIN 40 MG/0.4 ML SYR SQ SCH (20:00)
[2017-06-21] MEDS: ALBUT/IPRATROP 3MG/0.5MG NEB 3 ML VIAL INH SCH (20:00)
[2017-06-21] MEDS: FORMOTEROL FUMA NEBULIZER SOLN 20 MCG/2 ML VIAL INH SCH (20:20)
[2017-06-21] MEDS ORDERED: RANITIDINE HCL 150 MG TAB PO SCH (21:00)
[2017-06-22] VITALS (9 sets, daily range): BP systolic 161–190; BP diastolic 81–106; PULSE 78–104; TEMP 36.5–36.6; O2SAT 95–98
[2017-06-22] MEDS: METHYLPREDNISOLONE IV 40 MG in SYRINGE 0 ML IV SCH ×3 (00:13→11:31)
[2017-06-22] MEDS ORDERED: LORAZEPAM INJ 1 MG in SYRINGE 0.5 ML IV PRN (00:15)
[2017-06-22] MEDS ORDERED: LORAZEPAM INJ 0.5 MG in SYRINGE 0.75 ML IV PRN (00:15)
[2017-06-22] MEDS ORDERED: NURSING VERBAL MED ORDER ONE (06:15)
[2017-06-22] MEDS: ALBUT/IPRATROP 3MG/0.5MG NEB 3 ML VIAL INH SCH ×3 (07:03→14:29)
[2017-06-22] MEDS: FORMOTEROL FUMA NEBULIZER SOLN 20 MCG/2 ML VIAL INH SCH (07:03)
[2017-06-22 07:51] LABS: HEMATOCRIT 42.8 % (37-47); MEAN CELL VOLUME 95.3 fL (80-100); MEAN CORPUSCULAR HEMOGLOBIN 31.8 pg (25-34); MEAN CORPUSCULAR HGB CONC 33.4 g/dl (32-36); MEAN PLATELET VOLUME 9.3 fL (7.4-10.4); PLATELET COUNT 322 K/uL (130-400); RED BLOOD COUNT 4.49 M/uL (4.2-5.4); WHITE BLOOD COUNT 14.93 K/uL (4.8-10.8)
[2017-06-22 08:45] LABS: BUN/CREATININE RATIO 19.4 (10-20); CALCIUM 9.6 mg/dl (8.5-10.1); CREATININE 0.91 mg/dl (0.60-1.20); MAGNESIUM 2.6 mg/dl (1.8-2.4)
[2017-06-22] MEDS ORDERED: PANTOprazole SOD 40 MG TAB PO SCH (09:00)
[2017-06-22] MEDS ORDERED: ESCITALOPRAM OXALATE 10 MG TAB PO SCH (09:00)
[2017-06-22] MEDS ORDERED: FLUTICASONE PROPIONATE NA SPR 16 GM BTL NAE SCH (09:00)
[2017-06-22] MEDS ORDERED: MULTIVITAMIN TAB PO SCH (09:00)
--- NOTE | 2017-06-22 15:08 | Discharge Instructions ---
Discharge Instructions Date of Service Jun 22, 2017. Admission Reason for Admission: Asthma, Cough, Chronic Bronchitis Discharge Discharge Diagnosis / Problem: asthma, cough Discharge Goals Goal(s): Improve function Activity Recommendations Activity Limitations: resume your previous activity . Instructions / Follow-Up Instructions / Follow-Up Please follow up with Dr. Preciado within a week. The nurse navigator will call with appointment Current Hospital Diet Patient's current hospital diet: Low Sodium Diet (2gm Na) Discharge Diet Recommended Diet: Low Sodium Diet (2gm Na) Pending Studies Studies pending at discharge: no Medical Emergencies . Who to Call and When: Medical Emergencies: If at any time you feel your situation is an emergency, please call 911 immediately. . Non-Emergent Contact Non-Emergency issues call your: Primary Care Provider Call Non-Emergent contact if: you have any medication questions . Past History Medical & Surgical History: (1) Asthma . "Provider Documentation" section prepared by Wanda Ramos. . VTE Core Measure Inpt VTE Proph given/why not?: SCD's
[2017-06-22] MEDS ORDERED: PRD20 PO (15:14)
[2017-06-22] MEDS ORDERED: AZIT-57 PO (15:19)
[2017-06-22] MEDS ORDERED: PRD10 PO (15:19)
--- NOTE | 2017-06-22 15:21 | Discharge Instructions ---
Discharge Instructions Date of Service Jun 22, 2017. Admission Reason for Admission: Asthma, Cough, Chronic Bronchitis Discharge Discharge Diagnosis / Problem: asthma, cough Discharge Goals Goal(s): Decrease discomfort, Increase independence Activity Recommendations Activity Limitations: resume your previous activity . Instructions / Follow-Up Instructions / Follow-Up Please follow up with Dr. Preciado within a week. Nurse navigator will call with appointment. Please take 60 mg prednisone daily for 3 days then resume your usual 40 mg dose Current Hospital Diet Patient's current hospital diet: Low Sodium Diet (2gm Na) Discharge Diet Recommended Diet: Low Sodium Diet (2gm Na) Pending Studies Studies pending at discharge: no Medical Emergencies . Who to Call and When: Medical Emergencies: If at any time you feel your situation is an emergency, please call 911 immediately. . Non-Emergent Contact Non-Emergency issues call your: Primary Care Provider, Aco Coordinator Call Non-Emergent contact if: you have any medication questions . Past History Medical & Surgical History: (1) Asthma exacerbation . "Provider Documentation" section prepared by Wanda Ramos. . VTE Core Measure Inpt VTE Proph given/why not?: SCD's
[2017-06-22] MEDS ORDERED: AZITHROMYCIN IV 500 MG in DEXTROSE 5% 250ML 250 ML IV SCH (16:00)
--- NOTE | 2017-06-22 17:34 | Discharge Summary ---
Discharge Summary Date of Service Jun 22, 2017. (Wanda Ramos CRNP) Discharge Summary Admission Date: Jun 21, 2017 at 14:32 Discharge Date: Jun 22, 2017 Principal Diagnosis: Asthma exacerbation Immunizations: Have You Had Influenza Vaccine: Yes Influenza Vaccine Date: Apr 02, 2012 History of Tetanus Vaccine?: Unknown History of Pneumococcal: Yes Pneumococcal Date: Aug 02, 2009 History of Hepatitis B Vaccine: No (Wanda Ramos CRNP) Medication Reconciliation New Medications: Azithromycin (Azithromycin) 250 Mg Tab 250 MG PO DAILY for 4 Days, #4 DOSE Prednisone (Prednisone) 20 Mg Tab 60 MG PO DAILY for 3 Days, #9 TABS 60 mg for 3 days then return to 40 mg daily Prednisone (Prednisone) 10 Mg Tab 10 MG PO QID for 30 Days, #120 DOSE resume 10 mg qid after finishing 3 days of 60 mg daily Continued Medications: Albuterol Sulf (Proventil 0.083% 2.5MG/3ML) 2.5 Mg/3 Ml Nebu 2.5 MG INH Q4 PRN for SOB/Wheezing, EA Arformoterol Tartrate (Brovana) 15 Mcg/2 Ml Neb 15 MCG INH BID PRN for SOB/Wheezing, INHALER Budesonide (Pulmicort Respules 0.5MG/2ML) 0.5 Mg/2 Ml Nebu 2 ML INH BID PRN for SOB/Wheezing, EA Clonazepam (Klonopin) 0.5 Mg Tab 0.5 MG PO BID PRN for Anxiety, TAB Escitalopram Oxalate (Lexapro) 5 Mg Tab 5 MG PO DAILY, TAB Home O2 Therapy (Oxygen) Gas 2 LITER NA PRN, BTL Ibuprofen (Ibuprofen) 400 Mg Tab 400 MG PO Q6 PRN for Pain, #30 Ipratropium [place] (Ipratropium [place]) 0.5 Mg/2.5 Ml Nebu 1 VIAL NEB QID PRN for SOB/Wheezing for 30 Days, #300 ML 3 Refills Mometasone Furoate (Nasal) (Mometasone Furoate) 50 Mcg/Act Spr 1 SPRAY KARON QAM Multivitamin (Multivitamin) Tab 1 TAB PO QAM, TAB Omeprazole-Sodium Bicarbonate (Zegerid) 1 Cap Cap 1 CAP PO QAM Ranitidine (Zantac) 300 Mg Tab 300 MG PO HS, TAB Discontinued Medications: Prednisone Tab (Prednisone) 10 Mg Tab 40 MG PO DAILY, TAB Discharge Exam ROS Constitutional: no chills, aches, sweats or fever Respiratory: baseline sob,cough, sputum, or wheezing Cardiac: no chest pain, palpitations, edema, orthopnea or lightheadedness GI: no abdominal pain, nausea, vomiting, diarrhea or constipation : no dysuria or hesitancy Extremities: no joint pain or weakness Skin: no rash PE General: no distress Eyes: normal inspection, PERLL Respiratory: chest non tender, clear to auscultation, normal breath sounds, no respiratory distress, no accessory muscle use Cardiac: regular rate and rhythm, no rub or gallop, no murmur, no edema, no jvd GI/: active bowel sounds, no abd pain or tenderness, soft, non distended Extremities: normal range of motion, normal strength, non tender Neuro/Psych: alert and oriented x 3, normal mood and affect Skin: normal color, dry (Wanda Ramos CRNP) Hospital Course Ms. Mann is a 61-year-old female here with asthma exacerbation status post bronchoscopy with Dr. Preciado: Asthma exacerbation - given Duonebs and IV solumedrol - Peak flow 06/22 was 350 which is within her target range - ambulated the halls without O2 with sats maintained in the high 90s - DC to home with three day 60 mg po prednisone and then return to normal 40 mg/ day - Discharged with four more days of azithromycin per pulmonology's recommendation - continue home nebs and inhalers and home O2 Anxiety - patient was continued on her lexapro and clonazepam GERD - omeprazole and Zantac - Understand that patient has had extensive pulmonary workup - May want to consider esophageal pH testing if this has not been done to assess GERD as possible asthma trigger Total Time Spent: Less than 30 minutes This includes examination of the patient, discharge planning, medication reconciliation, and communication with other providers. (Wanda Ramos CRNP) Attending Attestation & Discharge Note: Pt seen/examined, chart reviewed, discharge care plan d/w FERNANDA Ramos. I agree w/ the ortiz components of her discharge summary. 61yo female who was admitted to observation status after she developed worsening bronchospasm following a bronchoscopy by Dr. Drake Preciado. She was treated with scheduled nebs and high-dose IV steroids during her brief stay. With these measures her pulmonary symptoms improved and she returned to baseline. She will complete a brief steroid taper after discharge and then resume her normal, chronic prednisone amount of 40mg daily. Further tapering of her chronic prednisone will be managed by Dr. Preciado. Cultures from the bronch were negative while hospitalized. Discharge exam - gen - NAD, cushingnoid appearance mouth - no thrush heart - tachy, s1, s2 lungs - airation fair, minimal end-exp wheeze, decreased BS bases, no rales abd - soft, NT ext - no edema Follow-up with Dr. Preciado within 1 week of discharge was recommended. Jones Husain MD (Jones Husain MD) Discharge Instructions Please refer to the electronic Patient Visit Report (Discharge Instructions) for additional information. (Wanda Ramos CRNP) Follow-Up Please, follow up with Dr. Preciado on WednesdayJune 29 at 9:00 am. (Wanda Ramos CRNP) Additional Copies To Drake Preciado M.D.
== END 2017-06-22 16:15 | disposition home or self-care (01) ==
LOC: C.ACU 07:39 → C.MSW 14:32 → ENRESERV 15:18
PROVIDERS: ADMIT Internal Medicine; ATTEND Internal Medicine
DX: J45.901 Unspecified asthma with (acute) exacerbation (principal); F41.9 Anxiety disorder, unspecified; F32.9 Major depressive disorder, single episode, unspecified; K21.9 Gastro-esophageal reflux disease without esophagitis; Z79.899 Other long term (current) drug therapy

== ENCOUNTER → 2017-06-28 | Outpatient (CLI) | payer BC ==
[~2017-06-28] MED LIST changes: +AZIT-57 PO; +OXGN; +PRD10 PO; +PRD20 PO; -PRED10TA PO
[2017-06-28 17:59] LABS: IMMUNOGLOBULN A 61.4 mg/dL (70-400); IMMUNOGLOBULN M 76.5 mg/dL (40-230)
== END | disposition home or self-care (01) ==
LOC: C.LAB 16:46
PROVIDERS: ATTEND Internal Medicine Pulmonary Disease
DX: R05 Cough (principal)

== ENCOUNTER → 2017-09-15 | Outpatient (CLI) | payer BC | END | disposition home or self-care (01) | LOC: C.LAB 16:00 | PROVIDERS: ATTEND Physician Assistant | DX: R53.83 Other fatigue (principal) ==

== ENCOUNTER 2017-09-30 10:08 | Inpatient (IN) | payer BC, OTHER ==
[~2017-09-30] VITALS: Ht 154.9 cm; Wt 80.6 kg
[2017-09-30] MEDS ORDERED: PRED20TA PO (11:15)
[2017-09-30] MEDS ORDERED: MAGNESIUM SULFATE 1GM / D5W 1 GM BAG IV STA (11:32)
[2017-09-30] MEDS ORDERED: METHYLPREDNISOLONE 125 MG VIAL IV STA (11:32)
[2017-09-30] MEDS ORDERED: ALBUT/IPRATROP 3MG/0.5MG NEB 3 ML VIAL INH ONE (11:45)
[2017-09-30 12:02] VITALS: PULSE 100; O2SAT 95
[2017-09-30 12:13] LABS: BASO % 0.2 %; BASO ABS # 0.02 K/uL (0-0.2); EOS % 0.8 %; EOS ABS # 0.09 K/uL (0-0.5); HEMATOCRIT 45.9 % (37-47); HEMOGLOBIN 15.2 g/dL (12.0-16.0); IG# 0.04 K/uL (0.00-0.02); LYMPH % 7.9 %; LYMPH ABS # 0.87 K/uL (1.2-3.4); MEAN CELL VOLUME 93.7 fL (80-100); MEAN CORPUSCULAR HGB CONC 33.1 g/dl (32-36); MEAN PLATELET VOLUME 9.6 fL (7.4-10.4); MONO % 8.1 %; MONO ABS # 0.89 K/uL (0.11-0.59); NEUT % 82.6 %; NEUT ABS # 9.09 K/uL (1.4-6.5); PLATELET COUNT 249 K/uL (130-400); RED CELL DISTRIBUTION WIDTH CV 13.3 % (11.5-14.5)
[2017-09-30 12:34] LABS: ALBUMIN 3.8 gm/dl (3.4-5.0); ALT/SGPT 44 U/L (12-78); BLOOD UREA NITROGEN 21 mg/dl (7-18); CARBON DIOXIDE 25 mmol/L (21-32); CREATININE 1.05 mg/dl (0.60-1.20); GLUCOSE 107 mg/dl (70-99); POTASSIUM 3.4 mmol/L (3.5-5.1); SODIUM 137 mmol/L (136-145)
[2017-09-30 12:35] LABS: INFLUENZA B ANTIGEN Neg for Influ B (NEG)
[2017-09-30 12:39] LABS: ALKALINE PHOSPHATASE 52 U/L (45-117); AST/SGOT 31 U/L (15-37); TOTAL PROTEIN 7.2 gm/dl (6.4-8.2)
--- NOTE | 2017-09-30 12:55 | DIAGNOSTIC IMAGING REPORT ---
CHEST ONE VIEW PORTABLE CLINICAL HISTORY: EVALUATE RESPIRATORY DISTRESS.DYSPNEA COMPARISON STUDY: Chest CT May 07, 2017. FINDINGS: Lung volumes are mildly diminished. There is no pneumothorax or pleural effusion. There is no evidence for pulmonary edema. There is mild left lower lung retrocardiac opacity. Cardiomediastinal silhouette is unremarkable. Linear left lower lung opacity suggests atelectasis. IMPRESSION: Mild left lower lung retrocardiac opacity. This may reflect atelectasis or small focus of pneumonia. Radiographic follow up to ensure resolution is recommended. Electronically signed by: Duncan Mcnally M.D. 09/30/2017 12:53 PM Dictated Date/Time: 09/30/2017 12:51 PM
[2017-09-30] MEDS ORDERED: LEVAQUIN 750MG / 150ML D5W IV STA (13:17)
[2017-09-30] MEDS ORDERED: OSELTAMIVIR PHOSPHATE 75 MG CAP PO STA (13:17)
[2017-09-30] MEDS ORDERED: SODIUM CHLORIDE 0.9% 1000ML 1,000 ML IV SCH (14:30)
[2017-09-30] MEDS ORDERED: NON-FORMULARY MEDICATION (Home O2 Therapy (Oxygen) 2 LITER) SCH (14:30)
[2017-09-30] MEDS ORDERED: ALUMINUM/MAGNESIUM/SIMETH (MAALOX MAX) 30 ML UDC PO PRN (14:30)
[2017-09-30] MEDS ORDERED: ALBUT/IPRATROP 3MG/0.5MG NEB 3 ML VIAL INH PRN (14:30)
[2017-09-30] MEDS ORDERED: ACETAMINOPHEN 325 MG TAB PO PRN (14:30)
[2017-09-30] MEDS ORDERED: MAGNESIUM HYDROXIDE SUSP 30 ML UDC PO PRN (14:30)
[2017-09-30] MEDS ORDERED: ONDANSETRON INJ 2 MG/ML 2 ML VIAL IV PRN (14:30)
[2017-09-30] MEDS ORDERED: LORAZEPAM 0.5 MG TAB PO PRN (14:30)
[2017-09-30] MEDS ORDERED: CLONAZEPAM 0.5 MG TAB PO PRN (14:30)
--- NOTE | 2017-09-30 14:52 | History and Physical ---
History & Physical Date & Time of Service: Sep 30, 2017 at 14:48 Chief Complaint: Asthma Primary Care Physician: Arcenio Mason PA-C History of Present Illness Gunjan is a 61-year-old female bothered by persistent recurring asthma. The patient has been on intermittent prednisone over the last 10 months most recently on tapering doses over the last 1 week she represents to her outpatient physician office with worsening dyspnea she was sent to the emergency room where she was found to have influenza type a and a left retrocardiac infiltrate. The patient was given Solu-Medrol and hour-long neb she is mildly tremulous she coughs with minimal exertion and she is very poor air movement on exam she will be admitted for acute asthma exacerbation, and influenza pneumonia Social History Smoking Status: Never Smoker Marital Status: Housing status: lives with family Immunizations History of Influenza Vaccine: Yes Influenza Vaccine Date: Apr 02, 2012 History of Tetanus Vaccine?: Unknown History of Pneumococcal: Yes Pneumococcal Date: Aug 02, 2009 History of Hepatitis B Vaccine: No Allergies Coded Allergies: Propofol (Verified Allergy, Unknown, SICK TO STOMACH AND DIFFICULTY BREATHING, n/v, 06/21/17) Has had since initial reaction with no problem Home Medications Scheduled Escitalopram Oxalate (Lexapro), 5 MG PO DAILY Home O2 Therapy (Oxygen), 2 LITER NA PRN Mometasone Furoate (Nasal) (Mometasone Furoate), 1 SPRAY [place]ON QAM Multivitamin (Multivitamin), 1 TAB PO QAM Omeprazole-Sodium Bicarbonate (Zegerid), 1 CAP PO QAM Prednisone (Prednisone), 40 MG PO DIRECTED Ranitidine (Zantac), 300 MG PO HS Scheduled PRN Albuterol Sulf (Proventil 0.083% 2.5MG/3ML), 2.5 MG INH Q4 PRN for SOB/Wheezing Arformoterol Tartrate (Brovana), 15 MCG INH BID PRN for SOB/Wheezing Budesonide (Pulmicort Respules 0.5MG/2ML), 2 ML INH BID PRN for SOB/Wheezing Clonazepam (Klonopin), 0.5 MG PO BID PRN for Anxiety Ipratropium [place] (Ipratropium [place]), 1 VIAL NEB QID PRN for SOB/Wheezing Review of Systems ROS: well nourished well developed. No double vision blurry vision No problems with speech or swallowing no problems with thrush Has experienced some palpitations especially with increased albuterol use but no chest pain or pressure Patient is wheezing coughing and difficulty catching her breath frequently feeling short of breath No abdominal pain nausea vomiting diarrhea changes in appetite or weight No burning urine urine frequency or changes in color No focal joint pain or muscle pain No skin rashes or oral lesions No unusual bruising or bleeding No focused back pain or numbness or loss of strength No changes in memory or confusion however the patient's been depressed about her recurring illnesses this past year Physical Exam Vital Signs Date Time Temp Pulse Resp B/P (MAP) Pulse Ox O2 Delivery O2 Flow Rate FiO2 09/30/17 14:42 37.3 118 18 137/78 92 Room Air 09/30/17 13:05 36.9 122 18 99/67 95 Room Air 09/30/17 12:18 107 18 134/74 99 Nebulizer 09/30/17 12:02 99 Room Air 09/30/17 12:02 100 20 95 Room Air 09/30/17 12:02 99 Room Air 09/30/17 10:15 94 Room Air 09/30/17 10:11 37.0 114 19 124/78 95 Room Air General Appearance: WD/WN, + mild distress Head: normocephalic, atraumatic Eyes: normal inspection, sclerae normal Neck: supple, no JVD Respiratory/Chest: + respiratory distress, + decreased breath sounds, + accessory muscle use, + wheezing Cardiovascular: no murmur, + tachycardia Abdomen/GI: normal bowel sounds, non tender, soft Back: normal inspection, no CVA tenderness Extremities/Musculoskelatal: no pedal edema, normal range of motion Neurologic/Psych: alert, oriented x 3 Skin: normal color, warm/dry, no rash Diagnostics Laboratory Results Results Past 24 Hours Test 09/30/17 11:45 09/30/17 12:00 Range/Units White Blood Count 11.00 4.8-10.8 K/uL Red Blood Count 4.90 4.2-5.4 M/uL Hemoglobin 15.2 12.0-16.0 g/dL Hematocrit 45.9 37-47 % Mean Corpuscular Volume 93.7 80-100 fL Mean Corpuscular Hemoglobin 31.0 25-34 pg Mean Corpuscular Hemoglobin Concent 33.1 32-36 g/dl Platelet Count 249 130-400 K/uL Mean Platelet Volume 9.6 7.4-10.4 fL Neutrophils (%) (Auto) 82.6 % Lymphocytes (%) (Auto) 7.9 % Monocytes (%) (Auto) 8.1 % Eosinophils (%) (Auto) 0.8 % Basophils (%) (Auto) 0.2 % Neutrophils # (Auto) 9.09 1.4-6.5 K/uL Lymphocytes # (Auto) 0.87 1.2-3.4 K/uL Monocytes # (Auto) 0.89 0.11-0.59 K/uL Eosinophils # (Auto) 0.09 0-0.5 K/uL Basophils # (Auto) 0.02 0-0.2 K/uL RDW Standard Deviation 46.0 36.4-46.3 fL RDW Coefficient of Variation 13.3 11.5-14.5 % Immature Granulocyte % (Auto) 0.4 % Immature Granulocyte # (Auto) 0.04 0.00-0.02 K/uL Sodium Level 137 136-145 mmol/L Potassium Level 3.4 3.5-5.1 mmol/L Chloride Level 103 98-107 mmol/L Carbon Dioxide Level 25 21-32 mmol/L Anion Gap 9.0 3-11 mmol/L Blood Urea Nitrogen 21 7-18 mg/dl Creatinine 1.05 0.60-1.20 mg/dl Est Creatinine Clear Calc Drug Dose 53.4 ml/min Estimated GFR () 65.9 Estimated GFR (Non- 56.9 BUN/Creatinine Ratio 19.7 10-20 Random Glucose 107 70-99 mg/dl Calcium Level 9.0 8.5-10.1 mg/dl Total Bilirubin 0.8 0.2-1 mg/dl Aspartate Amino Transf (AST/SGOT) 31 15-37 U/L Alanine Aminotransferase (ALT/SGPT) 44 12-78 U/L Alkaline Phosphatase 52 45-117 U/L Troponin I < 0.015 0-0.045 ng/ml Total Protein 7.2 6.4-8.2 gm/dl Albumin 3.8 3.4-5.0 gm/dl Globulin 3.4 2.5-4.0 gm/dl Albumin/Globulin Ratio 1.1 0.9-2 Influenza Type A Antigen POS for Influ A NEG Influenza Type B Antigen Neg for Influ B NEG Urine Color DK YELLOW Urine Appearance CLEAR CLEAR Urine pH 5.0 4.5-7.5 Urine Specific [place] 1.033 1.000-1.030 Urine Protein 1+ NEG Urine Glucose (UA) 3+ NEG Urine Ketones TRACE NEG Urine Occult Blood 2+ NEG Urine Nitrite NEG NEG Urine Bilirubin NEG NEG Urine Urobilinogen NEG NEG Urine Leukocyte Esterase TRACE NEG Urine WBC (Auto) 5-10 0-5 /hpf Urine RBC (Auto) 5-10 0-4 /hpf Urine Hyaline Casts (Auto) 5-10 0-5 /lpf Urine Epithelial Cells (Auto) >30 0-5 /lpf Urine Bacteria (Auto) NEG NEG Urine Renal Epithelial Cells 0-5 0-5 /lpf other (Very small retrocardiac infiltrate) other (Sinus tachycardia) Impression Assessment and Plan 61-year-old female with asthma exacerbation and influenza pneumonia For the influenza and pneumonia patient given Tamiflu and azithromycin is a very small retrocardiac infiltrate without much mucus production For asthma exacerbation the patient will have Solu-Medrol duo nebs and formoterol Mucinex plus a pulmonary consultation Anxiety and depression patient continue Lexapro with as needed clonazepam and albuterol DVT prevention is Lovenox Resuscitation Status VTE Prophylaxis Will order VTE Prophylaxis: Yes
--- NOTE | 2017-09-30 15:33 | EMERGENCY ROOM VISIT NOTE ---
History Report prepared by Huy: Robin Young Under the Supervision of: Dr. Escobar Cano M.D. First contact with patient: 11:14 Chief Complaint: SHORTNESS OF BREATH Stated Complaint: ASTHMA History of Present Illness The patient is a 61 year old female who presents to the Emergency Room with complaints of constant shortness of breath beginning three days ago. The patient has a history of asthma. She is chronically on Prednisone. She uses nebulizers at home 4-6 times per day normally. The patient had an injection of Solu-Medrol last week for similar symptoms which helped for a few days. Nothing has improved her symptoms today. She has been admitted to the hospital for her asthma before in the past, and states that her current symptoms are worse than previous times she has been admitted. The patient also complains of chest pain. She feels that her pain is related to muscle soreness. Pt denies LOC, headache, fevers, chills, diaphoresis, visual changes, neck pain, tearing pain radiating to the back, personal history or family history of aneurysm or pulmonary embolism, uncontrolled hypertension, leg swelling, coagulation abnormalities, prolonged travel, recent surgery or immobilization, nausea, vomiting, abdominal pain, melena, hematochezia, urinary symptoms, numbness, weakness, lymphadenopathy, rash, or other complaints. She is on Clonazepam PRN for bronchospasms. Source of History: patient Onset: Three days ago Quality: other (shortness of breath) Timing: constant Modifying Factors (Relieving): other (none) Associated Symptoms: + chest pain (muscle soreness) Review of Systems See HPI for pertinent positives and negatives. A total of ten systems were reviewed and were otherwise negative. Past Medical & Surgical Medical Problems: (1) Anxiety (2) Asthma (3) Asthma attack (4) Asthma exacerbation (5) Asthma with status asthmaticus (6) Influenza, pneumonia Family History No pertinent family history stated. Social History Smoking Status: Never Smoker Marital Status: Current/Historical Medications Scheduled Escitalopram Oxalate (Lexapro), 5 MG PO DAILY Home O2 Therapy (Oxygen), 2 LITER NA PRN Mometasone Furoate (Nasal) (Mometasone Furoate), 1 SPRAY KARON QAM Multivitamin (Multivitamin), 1 TAB PO QAM Omeprazole-Sodium Bicarbonate (Zegerid), 1 CAP PO QAM Prednisone (Prednisone), 40 MG PO DIRECTED Ranitidine (Zantac), 300 MG PO HS Scheduled PRN Albuterol Sulf (Proventil 0.083% 2.5MG/3ML), 2.5 MG INH Q4 PRN for SOB/Wheezing Arformoterol Tartrate (Brovana), 15 MCG INH BID PRN for SOB/Wheezing Budesonide (Pulmicort Respules 0.5MG/2ML), 2 ML INH BID PRN for SOB/Wheezing Clonazepam (Klonopin), 0.5 MG PO BID PRN for Anxiety Ipratropium [place] (Ipratropium [place]), 1 VIAL NEB QID PRN for SOB/Wheezing Allergies Coded Allergies: Propofol (Verified Allergy, Unknown, SICK TO STOMACH AND DIFFICULTY BREATHING, n/v, 06/21/17) Has had since initial reaction with no problem Physical Exam Vital Signs Date Time Temp Pulse Resp B/P (MAP) Pulse Ox O2 Delivery O2 Flow Rate FiO2 09/30/17 14:42 37.3 118 18 137/78 92 Room Air 09/30/17 13:05 36.9 122 18 99/67 95 Room Air 09/30/17 12:18 107 18 134/74 99 Nebulizer 09/30/17 12:02 99 Room Air 09/30/17 12:02 100 20 95 Room Air 09/30/17 12:02 99 Room Air 09/30/17 10:15 94 Room Air 09/30/17 10:11 37.0 114 19 124/78 95 Room Air Physical Exam GENERAL: Awake, alert, dyspneic-appearing, in no distress HENT: Normocephalic, atraumatic. Oropharynx unremarkable. EYES: Normal conjunctiva. Sclera non-icteric. NECK: Supple. No nuchal rigidity. FROM. No masses. RESPIRATORY: Expiratory wheezing. CARDIAC: Normal rate. Normal rhythm. No murmurs. No rubs. Extremities warm and well perfused. Pulses equal. No JVD. GI: Soft, non-distended. No tenderness to palpation. No rebound or guarding. No masses. RECTAL: Deferred. MUSCULOSKELETAL: Atraumatic. Chest examination reveals no tenderness. The back is symmetrical on inspection without obvious abnormality. There is no CVA tenderness to palpation. No joint edema. LOWER EXTREMITIES: Calves are equal size bilaterally and non-tender. No edema. No discoloration. NEURO: Normal sensorium. No sensory or motor deficits noted. SKIN: No rash or jaundice noted. Medical Decision & Procedures ER Provider Diagnostic Interpretation: Radiology results as stated below per my review and radiologist interpretation: CHEST ONE VIEW PORTABLE FINDINGS: Lung volumes are mildly diminished. There is no pneumothorax or pleural effusion. There is no evidence for pulmonary edema. There is mild left lower lung retrocardiac opacity. Cardiomediastinal silhouette is unremarkable. Linear left lower lung opacity suggests atelectasis. IMPRESSION: Mild left lower lung retrocardiac opacity. This may reflect atelectasis or small focus of pneumonia. Radiographic follow up to ensure resolution is recommended. Electronically signed by: Duncan Mcnally M.D. 09/30/2017 12:53 PM Laboratory Results 09/30/17 11:45 Red Blood Count 4.90, Mean Corpuscular Volume 93.7, Mean Corpuscular Hemoglobin 31.0, Mean Corpuscular Hemoglobin Concent 33.1, Mean Platelet Volume 9.6, Neutrophils (%) (Auto) 82.6, Lymphocytes (%) (Auto) 7.9, Monocytes (%) (Auto) 8.1, Eosinophils (%) (Auto) 0.8, Basophils (%) (Auto) 0.2, Neutrophils # (Auto) 9.09, Lymphocytes # (Auto) 0.87, Monocytes # (Auto) 0.89, Eosinophils # (Auto) 0.09, Basophils # (Auto) 0.02 09/30/17 11:45 Test 09/30/17 11:45 09/30/17 12:00 White Blood Count 11.00 K/uL (4.8-10.8) Red Blood Count 4.90 M/uL (4.2-5.4) Hemoglobin 15.2 g/dL (12.0-16.0) Hematocrit 45.9 % (37-47) Mean Corpuscular Volume 93.7 fL (80-100) Mean Corpuscular Hemoglobin 31.0 pg (25-34) Mean Corpuscular Hemoglobin Concent 33.1 g/dl (32-36) Platelet Count 249 K/uL (130-400) Mean Platelet Volume 9.6 fL (7.4-10.4) Neutrophils (%) (Auto) 82.6 % Lymphocytes (%) (Auto) 7.9 % Monocytes (%) (Auto) 8.1 % Eosinophils (%) (Auto) 0.8 % Basophils (%) (Auto) 0.2 % Neutrophils # (Auto) 9.09 K/uL (1.4-6.5) Lymphocytes # (Auto) 0.87 K/uL (1.2-3.4) Monocytes # (Auto) 0.89 K/uL (0.11-0.59) Eosinophils # (Auto) 0.09 K/uL (0-0.5) Basophils # (Auto) 0.02 K/uL (0-0.2) RDW Standard Deviation 46.0 fL (36.4-46.3) RDW Coefficient of Variation 13.3 % (11.5-14.5) Immature Granulocyte % (Auto) 0.4 % Immature Granulocyte # (Auto) 0.04 K/uL (0.00-0.02) Anion Gap 9.0 mmol/L (3-11) Est Creatinine Clear Calc Drug Dose 53.4 ml/min Estimated GFR () 65.9 Estimated GFR (Non- 56.9 BUN/Creatinine Ratio 19.7 (10-20) Calcium Level 9.0 mg/dl (8.5-10.1) Total Bilirubin 0.8 mg/dl (0.2-1) Aspartate Amino Transf (AST/SGOT) 31 U/L (15-37) Alanine Aminotransferase (ALT/SGPT) 44 U/L (12-78) Alkaline Phosphatase 52 U/L (45-117) Troponin I < 0.015 ng/ml (0-0.045) Total Protein 7.2 gm/dl (6.4-8.2) Albumin 3.8 gm/dl (3.4-5.0) Globulin 3.4 gm/dl (2.5-4.0) Albumin/Globulin Ratio 1.1 (0.9-2) Influenza Type A Antigen POS for Influ A (NEG) Influenza Type B Antigen Neg for Influ B (NEG) Urine Color DK YELLOW Urine Appearance CLEAR (CLEAR) Urine pH 5.0 (4.5-7.5) Urine Specific [place] 1.033 (1.000-1.030) Urine Protein 1+ (NEG) Urine Glucose (UA) 3+ (NEG) Urine Ketones TRACE (NEG) Urine Occult Blood 2+ (NEG) Urine Nitrite NEG (NEG) Urine Bilirubin NEG (NEG) Urine Urobilinogen NEG (NEG) Urine Leukocyte Esterase TRACE (NEG) Urine WBC (Auto) 5-10 /hpf (0-5) Urine RBC (Auto) 5-10 /hpf (0-4) Urine Hyaline Casts (Auto) 5-10 /lpf (0-5) Urine Epithelial Cells (Auto) >30 /lpf (0-5) Urine Bacteria (Auto) NEG (NEG) Urine Renal Epithelial Cells 0-5 /lpf (0-5) Laboratory results reviewed by me Medications Administered Medications (Trade) Dose Ordered Sig/Raheem Route Start Time Stop Time Status Last Admin Dose Admin Albuterol/ Ipratropium (Duoneb) 12 ml ONE ONCE INH 09/30/17 11:45 09/30/17 11:46 DC 09/30/17 12:01 12 ML Methylprednisolone Sodium Succinate (Solu-Medrol IV) 125 mg NOW STAT IV 09/30/17 11:32 09/30/17 11:35 DC 09/30/17 11:15 125 MG Magnesium Sulfate (Magnesium Sulfate) 2 gm NOW STAT IV 09/30/17 11:32 09/30/17 11:35 DC 09/30/17 11:15 2 GM Oseltamivir Phosphate (Tamiflu Cap) 75 mg NOW STAT PO 09/30/17 13:17 09/30/17 13:19 DC 09/30/17 13:50 75 MG Levofloxacin (Levaquin / D5W) 750 mg NOW STAT IV 09/30/17 13:17 09/30/17 13:19 DC 09/30/17 13:50 750 MG ECG Per My Interpretation Indication: SOB/dyspnea Rate (beats per minute): 100 Rhythm: normal sinus Findings: no acute ischemic change, no ectopy, other (Normal QT interval. RSR prime pattern in V2. ) ED Course 1129: The patient was evaluated in room C12B. A complete history and physical exam was performed. 1132: Ordered Magnesium Sulfate 2 gm IV, Solu-Medrol 125 mg IV. 1145: Ordered DuoNeb 12 mL INH. 1145: Ordered DuoNeb 12 mL INH. 1317: Ordered Levaquin / D5w 750 mg IV, Tamiflu Cap 75 mg PO. 1330: Upon reexamination, the patient was resting comfortably. I discussed the test results and treatment plan with her. The patient will be evaluated for further management. Medical Decision Triage Nursing notes reviewed. The patient's presentation and history were concerning for shortness of breath and history of reactive airway disease. Etiologies such as pneumonia, COPD, reactive airway disease, CHF, cardiac ischemia, pulmonary embolism, pneumothorax, musculoskeletal, infections, gastrointestinal, as well as others were entertained. The patient was evaluated. She was wheezing. She had decreased air movement. She is a long history of reactive airway disease. She was given an hour-long DuoNeb treatment and Solu-Medrol. Patient also received IV magnesium. Blood work, imaging and testing was performed. I did consult with her pulmonology team and spoke to Arcenio Mason PA-C. He agreed with the treatment. He recommended inpatient treatment with 24 hour nebulizers as well as every 6 hours Solu-Medrol since the patient has failed management through the office. The patient was found to have an infiltrate on chest x-ray as well as a positive influenza screen. She was given a dose of Levaquin and Tamiflu. Given the failure of outpatient management further treatment in the hospital was necessary. Consultation was made with internal medicine. The patient was evaluated in the Emergency Room for further management. Medication Reconcilliation Current Medication List: was personally reviewed by me Blood Pressure Screening Patient's blood pressure: Normal blood pressure Blood pressure disposition: Did not require urgent referral Consults Time Called: 1133 Consulting Physician: Arcenio Mason PA-C - Pulmonology Returned Call: [phone] Discussed the patient's case. Arcenio Mason PA-C recommends Nebulizer treatments Q4, and Solu-Medrol Q6. He agrees with admission to the hospital as an inpatient. Additional Consults: Time Called: 1335 Consulted Physician: Dr. Dave Quinones [facility] [place] Hospitalist Returned Call: [phone] Additional Comments: Discussed the patient's case. The patient will be evaluated for further treatment and disposition. Impression Primary Impression: Reactive airway disease Additional Impressions: Pneumonia Influenza Scribe Attestation The scribe's documentation has been prepared under my direction and personally reviewed by me in its entirety. I confirm that the note above accurately reflects all work, treatment, procedures, and medical decision making performed by me. Departure Information Dispostion Being Evaluated By Hospitalist Arcenio Schuster PA-C (PCP) Patient Instructions My [facility] Problem Qualifiers
[2017-09-30 15:35] VITALS: BP 115/77; PULSE 119; TEMP 36.8; O2SAT 94; Ht 154.9 cm; Wt 80.6 kg
[2017-09-30] MEDS ORDERED: AZITHROMYCIN 250 MG TAB PO STA (15:58)
[2017-09-30 16:18] LABS: INR 0.9 (0.9-1.1)
[2017-09-30] MEDS: ENOXAPARIN 40 MG/0.4 ML SYR SQ SCH (18:57)
[2017-09-30] MEDS: FORMOTEROL FUMA NEBULIZER SOLN 20 MCG/2 ML VIAL INH SCH (19:22)
[2017-09-30 19:23] VITALS: PULSE 93; O2SAT 96
[2017-09-30] MEDS: ALBUT/IPRATROP 3MG/0.5MG NEB 3 ML VIAL INH SCH (19:23)
[2017-09-30] MEDS ORDERED: PNEUMOCOCCAL POLYSACCHARIDES 25 MCG/0.5 ML VIAL/SYR IM. ONE (20:00)
[2017-09-30] MEDS ORDERED: PNEUMOCOCCAL ADMINISTRATION CHARGE ONE (20:00)
[2017-09-30] MEDS: METHYLPREDNISOLONE IV 40 MG in SYRINGE 0 ML IV SCH (20:31)
[2017-09-30] MEDS: GUAIFENESIN 600 MG TABCR PO SCH (20:31)
[2017-09-30 20:40] VITALS: O2SAT 95
[2017-09-30] MEDS ORDERED: OSELTAMIVIR PHOSPHATE 75 MG CAP PO SCH (21:00)
--- NOTE | 2017-09-30 22:47 | PULMONARY CONSULTATION ---
DATE OF CONSULTATION: 09/30/2017 TIME: 5:20 p.m. HISTORY OF PRESENT ILLNESS: The patient was seen in room #257. She is a 61-year-old female who has a history of asthma since age 44. She has had severe persistent asthma. She has been on prednisone most of the time for the past year. She has been sick for about 2 days. She was feeling weak and achy. She did not have any chills or sweats. Her appetite was decreased. She had one episode of vomiting. She has been much tighter than normal. She has had a cough which is hard at times but it is just dry. She states she has actually had anterior chest pain. She could not tell if this was directly associated with the cough or not. She has had some back pain. She presented to the Emergency Room today. She was found to have influenza as well as an exacerbation of asthma. She is currently feeling significantly better. She is much less tight than she was when she first came. She did have 3 treatments in a row with DuoNebs. She did develop some tremors at that time from that. Usually it does not bother her. The patient has a peak flow meter at home. She states that when she is good, her peak flows are about 325. She did not think to check her peak flow in the last few days when she was not feeling good. She did have allergy testing in the past and it was negative. Her asthma is not associated with any particular time of the year. She has 1 pet at home, alvares retriever dog. She does have some sore throat. She has heartburn at times. PAST SURGICAL HISTORY: 1. Kidney stone removal. 2. Tonsillectomy. 3. D&C and hysteroscopy. 4. At least 2 bronchoscopies. PAST MEDICAL HISTORY: 1. Asthma. 2. Reflux. 3. Chronic steroid use. 4. Anxiety. 5. Hypogammaglobulinemia. SOCIAL HISTORY: Tobacco -- never. ETOH -- occasional wine. FAMILY HISTORY: Father at 71 diabetes and heart disease. Mother at age 40 from some type of cancer. She thinks it was in the bones. ALLERGIES: SHE HAD A REACTION ONCE TO PROPOFOL WITH NAUSEA AND SHORTNESS OF BREATH. However, she reportedly has had it again with no problems. MEDICATIONS AT HOME: 1. Escitalopram 5 mg daily. 2. O2 2 liters p.r.n. 3. Mometasone nasal spray. 4. Zegerid 1 cap daily. 5. Prednisone as directed. 6. Ranitidine 300 mg at bedtime. 7. Nebs with albuterol and ipratropium p.r.n. 8. Brovana p.r.n. -- I do think she uses it that much. 9. Pulmicort Respules p.r.n. b.i.d. -- patient is not using regularly. 10. Clonazepam 0.5 b.i.d. p.r.n. anxiety. REVIEW OF SYSTEMS: Negative except for the above-mentioned complaints. PHYSICAL EXAMINATION: GENERAL: The patient is a 61-year-old female who was cooperative, alert and oriented. She was in no distress at rest. VITAL SIGNS: Temperature is 37.3. HEENT: Eye exam revealed pupils were reactive. The eyes were somewhat watery. She has some soft tissue edema underneath both eyes. Nares were clear. Mouth exam was unremarkable. NECK: Palpation of the neck reveals no lymph nodes. HEART: Heart rate was 110 per minute. The rhythm was regular. Blood pressure 137/78. LUNGS: Lung mann reveal a few scattered rales. No wheezing was heard. Saturation was 92%. Respiratory rate was 18 per minute. ABDOMEN: Soft. Bowel sounds were normal. There was no tenderness to palpation or masses. EXTREMITIES: Showed no cyanosis, clubbing or edema. IMAGING DATA: Chest x-ray showed mild left lower lung retrocardiac opacity, possibly representing atelectasis or a small focus of pneumonia. The lung volumes were mildly diminished. LABORATORY DATA: White count was 11,000, hemoglobin 15.2, platelets 249,000. Differential showed eosinophils only 0.8%. INR 0.9. Urine revealed +2 blood. Flu test was positive for influenza A. Sodium is 137, potassium 3.4, chloride 103, bicarbonate 25. BUN is 21 with a creatinine of 1.05. Troponin was negative. IMPRESSION: 1. Asthma with exacerbation. 2. Influenza A. -- acute. 3. Possible left lower lobe pneumonia. COMMENTS AND RECOMMENDATIONS: The patient's current breathing medications include azithromycin, methylprednisolone 40 mg b.i.d., guaifenesin, Perforomist 20 mcg b.i.d., DuoNebs q.i.d. and p.r.n. She is also on pantoprazole for the reflux. She is on Tamiflu. I agree with all the above measures. At home the patient is not on any type of inhaled steroid on a regular basis. In light of the fact she has had difficulty weaning her prednisone, I believe she should take a daily inhaled steroids. She has budesonide, but she does not use it regularly. I would encourage her to take it b.i.d. on a regular basis. The patient states that Dr. Preciado has been contacting an arabic linguist for her regarding the low IgG. There also has been some contact with [facility] regarding her asthma. Thank you for asking me to assist in her care.
[2017-10-01] VITALS (10 sets, daily range): BP systolic 106–133; BP diastolic 62–78; PULSE 72–84; TEMP 36.6–36.7; O2SAT 92–96
[2017-10-01] MEDS: ALBUT/IPRATROP 3MG/0.5MG NEB 3 ML VIAL INH SCH ×4 (07:13→19:43)
[2017-10-01] MEDS: FORMOTEROL FUMA NEBULIZER SOLN 20 MCG/2 ML VIAL INH SCH ×2 (07:14→19:43)
[2017-10-01 08:26] LABS: HEMATOCRIT 40.7 % (37-47); HEMOGLOBIN 13.8 g/dL (12.0-16.0); MEAN CELL VOLUME 92.5 fL (80-100); MEAN CORPUSCULAR HEMOGLOBIN 31.4 pg (25-34); MEAN CORPUSCULAR HGB CONC 33.9 g/dl (32-36); PLATELET COUNT 244 K/uL (130-400); RED CELL DISTRIBUTION WIDTH CV 13.2 % (11.5-14.5); RED CELL DISTRIBUTION WIDTH SD 45.2 fL (36.4-46.3); WHITE BLOOD COUNT 8.47 K/uL (4.8-10.8)
[2017-10-01 08:51] LABS: CALCIUM 8.8 mg/dl (8.5-10.1); CREATININE 1.13 mg/dl (0.60-1.20); POTASSIUM 3.8 mmol/L (3.5-5.1)
[2017-10-01] MEDS: FLUTICASONE PROPIONATE NA SPR 16 GM BTL NAE SCH (09:42)
[2017-10-01] MEDS: AZITHROMYCIN 250 MG TAB PO SCH (09:42)
[2017-10-01] MEDS: GUAIFENESIN 600 MG TABCR PO SCH ×2 (09:43→20:46)
[2017-10-01] MEDS: MULTIVITAMIN TAB PO SCH (09:43)
[2017-10-01] MEDS: PANTOprazole SOD 40 MG TAB PO SCH (09:43)
[2017-10-01] MEDS: ESCITALOPRAM OXALATE 10 MG TAB PO SCH (09:44)
[2017-10-01] MEDS: METHYLPREDNISOLONE IV 40 MG in SYRINGE 0 ML IV SCH ×2 (09:50→20:46)
[2017-10-01] MEDS: OSELTAMIVIR PHOSPHATE SUSP 30 MG/5 ML UDP PO SCH ×2 (09:51→20:46)
--- NOTE | 2017-10-01 14:25 | PULMONARY PROGRESS NOTE ---
DATE: 10/01/2017 PROBLEM LIST: Includes: 1. Asthma with acute exacerbation. 2. Influenza A, which is acute. 3. Possible left lower lobe pneumonia. SUBJECTIVE: The patient reports that she is feeling significantly better than she was yesterday when she came into the ER, states that her breathing is improved. She still is having some wheezing and chest tightness and heaviness but it is improved. She still has a nonproductive cough. She states that the chest discomfort she was having on admission is no longer there. She has no other symptoms at this time. She is not having any nausea or vomiting, no indigestion or heartburn, no difficulty with swelling in her extremities. OBJECTIVE: GENERAL: The patient is a 61-year-old female sitting in bed in no acute distress. She is alert and oriented x3. She does get a little bit tight and wheezy with conversation. She is interactive and cooperative. VITAL SIGNS: Temp 36.7, pulse 81, respirations 20, blood pressure is 127/62, and pulse ox 94-95% on room air. HEENT: Normocephalic, atraumatic. Pupils equal, round react to light and accommodation. Extraocular movements are intact. [place] moist gingival and buccal mucosa. NECK: Thick, short. No mass, no adenopathy or bruit. CHEST: She has diminished breath sounds bilaterally, although when I heard today is not far from where her baseline is in the office. She does have some mild expiratory wheeze diffusely throughout. No rale or rhonchi. CARDIOVASCULAR: Regular rate and rhythm, no murmurs, gallops or rubs. ABDOMEN: Bowel sounds are present. Abdomen is soft, nontender. EXTREMITIES: No erythema or edema. LABORATORY DATA: Shows white count of 8000, H&H 13.8 and 40.7, platelet count 244,000. Renal function is unremarkable. She is positive for influenza A. IMAGING DATA: Chest x-ray showing a left lower lobe retrocardiac opacity. IMPRESSION AND PLAN: This is a 61-year-old female with longstanding history of asthma which has not been well controlled, who presented with exacerbation. She was found to have influenza A and a possible left lower lobe pneumonia. At this time, she is showing improvement compared to yesterday when she came in. I feel that her current regimen of DuoNeb, Perforomist, guaifenesin, Solu-Medrol and azithromycin are appropriate. I do not know that I would decrease the Solu-Medrol dose she had, I probably wait until tomorrow and start decreasing it. She is also on Tamiflu. I think that the patient should continue hospitalization at least through tomorrow, and she was informing me that her and son are both starting with illness at home as well. Not to mention that, I do not feel that she is ready to be discharged yet. We will continue to monitor the patient. MTDD
--- NOTE | 2017-10-01 16:03 | Progress Note ---
Subjective Date of Service: Oct 01, 2017. Subjective Pt evaluation today including: conversation w/ patient, conversation w/ family , physical exam, chart review, lab review, review of studies, review of inpatient medication list Voiding: no voiding problems Still cough with yellow sputum, and wheezing, generally is better, associated with decreased appetite, denies fever and chill, Problem List Medical Problems: (1) Cellulitis Status: Acute (2) Influenza Status: Acute (3) Pneumonia Status: Acute (4) Reactive airway disease Status: Acute (5) Tick bite Status: Acute Review of Systems Constitutional: + weakness, + fatigue, No fever, No chills, No sweats, No weight loss, No problem reported Eyes: No worsening of vision, No eye pain, No redness, No discharge, No diplopia ENT: No hearing loss, No unusual epistaxis, No nasal symptoms, No sore throat, No tinnitus, No dental problems, No trouble swallowing Respiratory: + cough, + sputum, + wheezing, No shortness of breath, No dyspnea on exertion, No dyspnea at rest, No hemoptysis Cardiac: No chest pain, No orthopnea, No PND, No edema, No claudication, No palpitations Abdomen: No pain, No nausea, No vomiting, No diarrhea, No constipation Musculoskeletal: No joint pain, No muscle pain, No swelling, No calf pain Female : No dysuria, No urinary frequency, No hematuria, No incontinence, No abnormal vaginal bleeding, No vaginal discharge Neurologic: No memory loss, No paralysis, No weakness, No numbness/tingling, No vertigo, No balance problems Psychiatric: No depression symptoms, No anhedonism, No anxiety, No insomnia, No substance abuse Heme: No abnormal bleeding/bruising, No clotting problems, No swollen lymph nodes, No night sweats Endo: No fatigue, No excessive thirst, No excessive urination Skin: No rash, No itch, No new/changing skin lesions, No color change, No bleeding Objective Vital Signs Date Time Temp Pulse Resp B/P (MAP) Pulse Ox O2 Delivery O2 Flow Rate FiO2 10/01/17 15:53 36.7 80 18 130/78 (95) 95 Room Air 10/01/17 15:25 76 16 94 Room Air 10/01/17 11:16 80 16 94 Room Air 10/01/17 08:00 95 Room Air 10/01/17 07:21 36.7 81 20 127/62 (83) 94 Room Air 10/01/17 07:14 84 20 94 Room Air 10/01/17 00:59 36.6 84 17 106/66 (79) 92 10/01/17 00:00 96 Room Air 09/30/17 20:40 18 95 09/30/17 19:23 93 20 96 Room Air Physical Exam General Appearance: WD/WN, no apparent distress, + obese Eyes: normal inspection, PERRL, EOMI, sclerae normal ENT: normal ENT inspection, hearing grossly normal, pharynx normal Neck: supple, no adenopathy, thyroid normal, no JVD, no carotid bruits, trachea midline Respiratory/Chest: chest non-tender, normal breath sounds, no respiratory distress, no accessory muscle use, + decreased breath sounds, + wheezing Cardiovascular: regular rate, rhythm, no edema, no gallop, no JVD, no murmur Abdomen: normal bowel sounds, non tender, soft, no organomegaly, no pulsatile mass Extremities: normal range of motion, non-tender, normal inspection, no pedal edema, no calf tenderness, normal capillary refill, pelvis stable, + swelling ( Trace edema) Neurologic/Psychiatric: director clinical research II-XII nml as tested, no motor/sensory deficits, alert, normal mood/affect, oriented x 3 Skin: normal color, warm/dry, no rash Lymphatic: no adenopathy Laboratory Results Last 24 Hours Test 10/01/17 08:02 White Blood Count 8.47 K/uL Red Blood Count 4.40 M/uL Hemoglobin 13.8 g/dL Hematocrit 40.7 % Mean Corpuscular Volume 92.5 fL Mean Corpuscular Hemoglobin 31.4 pg Mean Corpuscular Hemoglobin Concent 33.9 g/dl RDW Standard Deviation 45.2 fL RDW Coefficient of Variation 13.2 % Platelet Count 244 K/uL Mean Platelet Volume 9.0 fL Sodium Level 139 mmol/L Potassium Level 3.8 mmol/L Chloride Level 105 mmol/L Carbon Dioxide Level 25 mmol/L Anion Gap 8.0 mmol/L Blood Urea Nitrogen 13 mg/dl Creatinine 1.13 mg/dl Est Creatinine Clear Calc Drug Dose 49.6 ml/min Estimated GFR () 60.3 Estimated GFR (Non- 52.0 BUN/Creatinine Ratio 11.9 Random Glucose 178 mg/dl Calcium Level 8.8 mg/dl Assessment and Plan 61-year-old female with asthma exacerbation and influenza pneumonia Influenza and pneumonia: Stable improving Continue Tamiflu, antibiotics azithromycin Continue Solu-Medrol and DuoNeb Patient has been following with hob mill operator, hob mill operator saw the patient already, will follow up Repeat chest x-ray 2 view, and then will go from there Anxiety and depression; continue Lexapro with as needed clonazepam DVT prevention: Lovenox Possible able to discharge home tomorrow if continued stable improving Continued [facility] stay due to: multiple IV medications needed Discharge planning: home
--- NOTE | 2017-10-01 16:36 | DIAGNOSTIC IMAGING REPORT ---
CHEST 2 VIEWS ROUTINE HISTORY: 61 years-old Female Follow-up pneumonia follow-up study in a patient with pneumonia and cough COMPARISON: Chest radiograph 09/30/2017, CTA chest 05/07/2017 TECHNIQUE: PA and lateral views of the chest FINDINGS: Cardiomediastinal and hilar silhouettes are within normal limits. Mild right hemidiaphragmatic elevation persists. The previously noted subtle retrocardiac opacity is no longer identified. There is no pneumothorax, pleural effusion, focal airspace consolidation or overt pulmonary edema. The bones of the chest appear grossly intact. Degenerative changes are noted within the shoulders and spine. IMPRESSION: No acute process of the chest. There is resolution of the previously noted subtle subsegmental retrocardiac left basilar opacity. The above report was generated using voice recognition software. It may contain grammatical, syntax or spelling errors. Electronically signed by: Mitul Graff M.D. 10/01/2017 4:34 PM Dictated Date/Time: 10/01/2017 4:33 PM
[2017-10-01] MEDS: ENOXAPARIN 40 MG/0.4 ML SYR SQ SCH (18:08)
[2017-10-02 07:00] VITALS: PULSE 88; O2SAT 92
[2017-10-02] MEDS: ALBUT/IPRATROP 3MG/0.5MG NEB 3 ML VIAL INH SCH ×2 (07:00→11:15)
[2017-10-02 07:13] VITALS: BP 138/62; PULSE 80; TEMP 36.5; O2SAT 91
[2017-10-02] MEDS: FORMOTEROL FUMA NEBULIZER SOLN 20 MCG/2 ML VIAL INH SCH (07:47)
[2017-10-02 08:00] VITALS: O2SAT 91
[2017-10-02] MEDS: GUAIFENESIN 600 MG TABCR PO SCH (08:42)
[2017-10-02] MEDS: PANTOprazole SOD 40 MG TAB PO SCH (08:42)
[2017-10-02] MEDS: MULTIVITAMIN TAB PO SCH (08:42)
[2017-10-02] MEDS: ESCITALOPRAM OXALATE 10 MG TAB PO SCH (08:43)
[2017-10-02] MEDS: AZITHROMYCIN 250 MG TAB PO SCH (08:43)
[2017-10-02] MEDS: FLUTICASONE PROPIONATE NA SPR 16 GM BTL NAE SCH (08:44)
[2017-10-02] MEDS: METHYLPREDNISOLONE IV 40 MG in SYRINGE 0 ML IV SCH (08:48)
[2017-10-02] MEDS: OSELTAMIVIR PHOSPHATE SUSP 30 MG/5 ML UDP PO SCH (08:49)
[2017-10-02 11:16] VITALS: PULSE 87; O2SAT 97
[2017-10-02] MEDS ORDERED: PRED20TA PO (12:13)
[2017-10-02] MEDS ORDERED: AZIT-57 PO (12:13)
[2017-10-02] MEDS ORDERED: TMFUDL30 PO (12:13)
--- NOTE | 2017-10-02 12:14 | Discharge Instructions ---
Discharge Instructions Date of Service Oct 02, 2017. Admission Reason for Admission: Influenza, Pneumonia Discharge Discharge Diagnosis / Problem: influenza pneumonia Discharge Goals Goal(s): Decrease discomfort, Improve function, Improve disease control, Learn about illness, Diagnostic testing Activity Recommendations Activity Limitations: resume your previous activity . Current Hospital Diet Patient's current hospital diet: Regular Diet Discharge Diet Recommended Diet: Regular Diet Pending Studies Studies pending at discharge: no Medical Emergencies . Who to Call and When: Medical Emergencies: If at any time you feel your situation is an emergency, please call 911 immediately. . Non-Emergent Contact Non-Emergency issues call your: Primary Care Provider Call Non-Emergent contact if: temperature is above 101 . . "Provider Documentation" section prepared by Kathy Newby .
--- NOTE | 2017-10-02 12:18 | Discharge Summary ---
Discharge Summary Date of Service Oct 02, 2017. Discharge Summary Admission Date: Sep 30, 2017 at 14:23 Discharge Date: Oct 02, 2017 Discharge Disposition: Home Principal Diagnosis: influenza pneumonia Immunizations: Have You Had Influenza Vaccine: Yes Influenza Vaccine Date: Apr 02, 2012 History of Tetanus Vaccine?: Unknown History of Pneumococcal: Yes Pneumococcal Date: Aug 02, 2009 History of Hepatitis B Vaccine: No Consultations: Pulmonology consult Medication Reconciliation New Medications: Azithromycin (Azithromycin) 250 Mg Tab 250 MG PO QAM for 2 Days, #2 TAB Oseltamivir Phosphate (Tamiflu) 6 Mg/Ml [place] 30 MG PO BID for 2 Days, #120 MG Changed Medications: Prednisone (Prednisone) 20 Mg Tab 20 MG PO DIRECTED, #20 MG 0 Refills (Changed from: 40 MG; Refills: ) Continued Medications: Albuterol Sulf (Proventil 0.083% 2.5MG/3ML) 2.5 Mg/3 Ml Nebu 2.5 MG INH Q4 PRN for SOB/Wheezing, EA Arformoterol Tartrate (Brovana) 15 Mcg/2 Ml Neb 15 MCG INH BID PRN for SOB/Wheezing, INHALER Budesonide (Pulmicort Respules 0.5MG/2ML) 0.5 Mg/2 Ml Nebu 2 ML INH BID PRN for SOB/Wheezing, EA Clonazepam (Klonopin) 0.5 Mg Tab 0.5 MG PO BID PRN for Anxiety, TAB Escitalopram Oxalate (Lexapro) 5 Mg Tab 5 MG PO DAILY, TAB Home O2 Therapy (Oxygen) Gas 2 LITER NA PRN, BTL Ipratropium [place] (Ipratropium [place]) 0.5 Mg/2.5 Ml Nebu 1 VIAL NEB QID PRN for SOB/Wheezing for 30 Days, #300 ML 3 Refills Mometasone Furoate (Nasal) (Mometasone Furoate) 50 Mcg/Act Spr 1 SPRAY KARON QAM Multivitamin (Multivitamin) Tab 1 TAB PO QAM, TAB Omeprazole-Sodium Bicarbonate (Zegerid) 1 Cap Cap 1 CAP PO QAM Ranitidine (Zantac) 300 Mg Tab 300 MG PO HS, TAB Discharge Exam Review of Systems: Constitutional: No fever, No chills, No weight loss, No weakness Eyes: No worsening of vision Respiratory: + wheezing, No cough, No sputum, No shortness of breath, No dyspnea on exertion, No dyspnea at rest, No hemoptysis Cardiovascular: No chest pain, No edema, No claudication, No palpitations Abdomen: No pain, No nausea, No vomiting, No diarrhea Musculoskeletal: No joint pain Psychiatric: + anxiety, No depression symptoms Endocrine: No fatigue Physical Exam: General Appearance: WD/WN, no apparent distress, + obese Eyes: EOMI Respiratory/Chest: chest non-tender, lungs clear, normal breath sounds, no respiratory distress Cardiovascular: regular rate, rhythm, no edema, no murmur, normal peripheral pulses Extremities: no calf tenderness, no pedal edema, normal range of motion Neurologic/Psychiatric: construction rigger II-XII nml as tested, no motor/sensory deficits , alert, normal mood/affect Skin: no rash Lymphatic: no adenopathy Hospital Course 61-year-old female with asthma exacerbation and influenza pneumonia Influenza and pneumonia: resolve Continue Tamiflu, antibiotics azithromycin x2 more days Continue Solu-Medrol and DuoNeb Patient has been following with laboratory director, laboratory director saw the patient already, will follow up Repeat chest x-ray 2 view, and then will go from there Anxiety and depression; continue Lexapro with as needed clonazepam Total Time Spent: Greater than 30 minutes This includes examination of the patient, discharge planning, medication reconciliation, and communication with other providers. Discharge Instructions Please refer to the electronic Patient Visit Report (Discharge Instructions) for additional information. Additional Copies To Drake Preciado M.D.
[2017-10-02 12:43] VITALS: BP 138/62; PULSE 87; TEMP 36.5; O2SAT 97
== END 2017-10-02 13:44 | disposition home or self-care (01) | DRG 194 ==
LOC: C.EDB 10:10 → C.MS2W 14:23 → ENRESERV 15:08
PROVIDERS: ADMIT Internal Medicine; ATTEND Hospitalist
DX: J10.00 Influenza due to other identified influenza virus with unspecified type of pneumonia (principal); J45.901 Unspecified asthma with (acute) exacerbation; D80.1 Nonfamilial hypogammaglobulinemia; Z88.6 Allergy status to analgesic agent; Z79.52 Long term (current) use of systemic steroids; F41.9 Anxiety disorder, unspecified; F32.9 Major depressive disorder, single episode, unspecified; Z83.3 Family history of diabetes mellitus; Z82.49 Family history of ischemic heart disease and other diseases of the circulatory system

== ENCOUNTER → 2017-10-07 | Outpatient (CLI) | payer BC ==
[~2017-10-07] MED LIST changes: -MTR400 PO; -PRD10 PO; -PRD20 PO; +PRED20TA PO; +TMFUDL30 PO
--- NOTE | 2017-10-08 13:54 | MAMMOGRAPHY REPORT ---
BILATERAL DIGITAL SCREENING MAMMOGRAM TOMOSYNTHESIS WITH CAD: 10/07/2017 CLINICAL HISTORY: Routine screening. Patient has no complaints. TECHNIQUE: Breast tomosynthesis in addition to standard 2D mammography was performed. Current study was also evaluated with a Computer Aided Detection (CAD) system. COMPARISON: Comparison is made to exams dated: 09/24/2016 mammogram, 03/23/2016 ultrasound, 03/23/2016 mammogram, 09/23/2015 ultrasound, 09/23/2015 mammogram, and 05/23/2012 mammogram - [facility]. BREAST COMPOSITION: There are scattered areas of fibroglandular density in both breasts. FINDINGS: No suspicious masses, calcifications, or areas of architectural distortion are noted in ei ther breast. There has been no significant interval change compared to prior exams. Bilateral nodula rity and scattered bilateral benign-appearing calcifications are not significantly changed. IMPRESSION: ACR BI-RADS CATEGORY 2: BENIGN There is no mammographic evidence of malignancy. A 1 year screening mammogram is recommended. The pa tient will receive written notification of the results. Approximately 10% of breast cancers are not detected with mammography. A negative mammographic report should not delay biopsy if a clinically suggestive mass is present. Tamera Gomes M.D. /:10/07/2017 15:22:36 Siding Stapler: Hilda DUBOIS)(Mary), [facility] letter sent: Normal 1/2 BI-RADS Code: ACR BI-RADS Category 2: Benign
== END | disposition home or self-care (01) ==
LOC: C.MAMM 14:35
PROVIDERS: ATTEND Obstetrics & Gynecology
DX: Z12.31 Encounter for screening mammogram for malignant neoplasm of breast (principal)

== ENCOUNTER → 2017-10-27 | Day surgery (SDC) | payer BC ==
[2017-10-18 09:20] VITALS: Ht 154.9 cm; Wt 76.8 kg
[~2017-10-27] VITALS: Ht 154.9 cm; Wt 76.8 kg
[~2017-10-27] MED LIST changes: +500ML BSS 0.3ML EPI 1:1000PF IRRIG ONE; +ACETAMINOPHEN 325 MG TAB PO PRN; +AMVISC PLUS 0.8ML SYRINGE INT OCU ONE; -ARFO15NE INH; -ATRINS NEB; +ATROPINE SULFATE 0.1 MG/ML 5ML SYR IV PRN; -AZIT-57 PO; +BSS FLUSH ONE; +ENDOCOAT 0.85ML SYRINGE INT OCU ONE; -ESCI1TAB6 PO; +EpHEDrine SULFATE INJ 50 MG/ML AMP IV PRN; +EpINEphrine INJ 1MG/ML AMP 1 MG/ML AMP ONE; +FENTANYL CITRATE INJ 50 MCG/1 ML 2 ML VIAL ONE; +HIZENTRA SC; +IPRASOL4 INH; +LACTATED RINGER'S 1000ML 500 ML IV SCH; +LIDOCAINE 4% OP SOLN DROP CHARGE ONE; +LIDOCAINE 4% OP SOLN DROP CHARGE OPR SCH; +LIDOCAINE HCL 1% MPF 2 ML VIAL ONE; +MIDAZOLAM HCL 1 MG/ML 2ML VIAL ONE; +MIX: 4ML BSS 1ML EPI 1:1000 PF TOP ONE; +MOXIFLOXACIN OPH SOLN PER DROP CHARGE ONE; +POVIDONE-IODINE OP SOLN 30 ML BTL ONE; +PROPARACAINE 0.5% OP SOLN PER DROP CHARGE OPR SCH; -TMFUDL30 PO; +TOBRAMYCIN/DEXAMETHASONE OPH OINT PER APPLN CHARGE ONE
[2017-10-27] MEDS: PHENYLEPHRINE HCL 2.5% OP SOLN PER DROP CHARGE OPR SCH ×3 (09:40→09:50)
[2017-10-27] MEDS: TROPICAMIDE 1% OP SOLN PER DROP CHARGE OPR SCH ×3 (09:41→09:51)
[2017-10-27] MEDS: CYCLOPENTOLATE HCL 1% OP SOLN PER DROP CHARGE OPR SCH ×3 (09:42→09:52)
[2017-10-27] MEDS: MOXIFLOXACIN OPH SOLN PER DROP CHARGE OPR SCH ×3 (09:43→09:53)
--- NOTE | 2017-10-27 11:06 | [facility] Post Operative Brief Note ---
Immediate Operative Summary Operative Date Oct 27, 2017. Pre-Operative Diagnosis Right Eye Cataract Post-Operative Diagnosis same Procedure(s) Performed Right Cataract Phacoemulsification With Intraocular Lens Implant Surgeon Dr. Amanda Peterson Composition Mixer Surgeon(s) 0 Estimated Blood Loss 0 Findings Consistent with Post-Op Diagnosis Specimens none Anesthesia Type MAC Complication(s) none Disposition Accompanied Pt To Recovery: no Disposition:
--- NOTE | 2017-10-27 11:07 | [facility] Operative Report ---
Operative Report Date of Service Oct 27, 2017. Operative Report DATE OF OPERATION: 10/27/17 PREOPERATIVE DIAGNOSIS: Senile nuclear cataract, right eye POSTOPERATIVE DIAGNOSIS: Senile nuclear cataract, right eye PROCEDURE PERFORMED: Phacoemulsification with intraocular lens implantation, right eye SURGEON: Dr. Pako Peterson ANESTHESIA: Topical with 1% intracameral lidocaine and monitored anesthesia care COMPLICATIONS: None DESCRIPTION OF PROCEDURE: After positively identifying the patient both verbally and by wristband in the preoperative area, the right eye was marked as the operative eye. The patient was then brought back to the operating room by the anesthesia and nursing staff where they were given a drop of Lidocaine and betadine into the operative eye. They were then sterilely prepped and draped in the standard fashion typical for ophthalmic surgery. Steri-strips were placed along the upper eyelids to keep the lashes back, and a lid speculum was placed into the operative eye. At this point, a documented time out was performed with members of the ophthalmology, nursing, and anesthesia staffs all agreeing upon the correct patient, correct location for surgery, correct procedure, and correct type and power of intraocular lens to be implanted. The microscope was then swung into position. First, a paracentesis wound was made using a sideport blade. Then, in sequence, 1% preservative-free lidocaine followed by Endocoat viscoelastic was injected into the anterior chamber. Next , the main incision was made with a keratome blade in triplanar fashion. A sharp cystotome was introduced into the eye and used to create a tear in the anterior capsule, which was directed into a continuous curvilinear capsulorrhexis using Utrata forceps. Hydrodissection was then performed with BSS on a flat-tip cannula. Next, the phacoemulsification handpiece was introduced into the eye and used to remove the nucleus in a [id number] fashion. This was done without complication and then the irrigation-aspiration handpiece was introduced into the eye and used to remove all remaining cortical and epinuclear material. Amvisc was then injected into the anterior chamber as well as into the capsular bag and using the lens injector system, an MX60 21.5 D lens, serial number [id number], and expiration date 03/2020 was injected into the capsular bag and rotated into the correct position. Next, the irrigation- aspiration handpiece was used to remove all remaining Amvisc. BSS was used to hydrate the main wound, and then BSS was injected into the paracentesis site to reach physiologic pressure and then the main wound was checked and found to be watertight. The patient was given drops of Vigamox and Tobradex ointment into the operative eye, and then the surrounding area was cleaned and dried. A clear plastic shield was placed over the eye and the patient was then sat up and taken from the operating room by the anesthesia staff having tolerated the procedure well and suffering no complications. DISPOSITION: The patient was returned to the recovery room in stable condition. I attest to the content of the Intraoperative Record and any orders documented therein. Any exceptions are noted below.
[2017-10-27 11:08] VITALS: TEMP 36.6
--- NOTE | 2017-10-27 11:08 | Discharge Instructions-SurgCtr ---
Discharge Instructions Date of Service Oct 27, 2017. Visit Reason for Visit: Cataract Right Eye Discharge Discharge Diagnosis / Problem: right cataract Discharge Goals Goal(s): Decrease discomfort, Improve function Activity Recommendations Activity Limitations: as noted below Anesthesia . Post Anesthesia Instructions: If you have had General Anesthesia or IV Sedation: * Do not drive today. * Resume driving when surgeon permits. * Do not make important decisions or sign legal documents today. * Call surgeon for: 1. Temperature elevations greater than 101 degrees F. 2. Uncontrollable pain. 3. Excessive bleeding. 4. Persistent nausea and vomiting. 5. Medication intolerance (nausea, vomiting or rash). * For nausea and vomiting use only clear liquids such as: tea, soda, bouillon until nausea subsides, then gradually increase diet as tolerated. * If you have any concerns or questions, call your surgeon's office. If physician is unavailable and it is an emergency, call 911 or go to the nearest emergency room. . Instructions / Follow-Up Instructions / Follow-Up ACTIVITY RECOMMENDATIONS: * Light activities. * You may walk outside, read, watch television. * You may notice redness on the white part of the eye and some blurry vision - this is normal. MEDICATIONS: Resume previous medications unless instructed otherwise by your surgeon. Start all eye drops at 1 pm today: * Eye drops (today): Prednisone - one drop in operative eye every 2 hours while awake Ofloxacin - one drop in operative eye every 2 hours while awake Prolensa - one drop in operative eye daily SPECIAL CARE INSTRUCTIONS: * Tape plastic shield over eye to sleep at night. Call your doctor at with any concerns or problems. FOLLOW UP VISIT: Follow-up with Dr Peterson at [place] office as scheduled. Diet Recommendations Home Diet: no limitations Procedures Procedures Performed: Right Cataract Phacoemulsification With Intraocular Lens Implant Pending Studies Studies pending at discharge: no Medical Emergencies . Who to Call and When: Medical Emergencies: If at any time you feel your situation is an emergency, please call 911 immediately. . Non-Emergent Contact Non-Emergency issues call your: Surgeon . . "Provider Documentation" section prepared by Pako Peterson. .
--- NOTE | 2017-10-27 11:14 | Anesthesia Progress Nt - [facility] ---
Anesthesia Post Op Note Date & Time Oct 27, 2017 at 11:14 Vital Signs Pain Intensity: 0 Vital Signs Past 12 Hours Date Time Temp Pulse Resp B/P (MAP) Pulse Ox O2 Delivery O2 Flow Rate FiO2 10/27/17 11:08 36.6 73 16 123/78 (93) 95 Room Air 10/27/17 09:28 36.6 98 18 129/69 (89) 95 Room Air Notes Mental Status: alert / awake / arousable, participated in evaluation Pt Amnestic to Procedure: Yes Nausea / Vomiting: adequately controlled Pain: adequately controlled Airway Patency, RR, SpO2: stable & adequate BP & HR: stable & adequate Hydration State: stable & adequate Anesthetic Complications: no major complications apparent
[2017-10-27 11:26] VITALS: BP 142/73; PULSE 79; O2SAT 97
== END | disposition home or self-care (01) ==
LOC: X.SURG 09:17
PROVIDERS: ATTEND Ophthalmology
DX: H25.11 Age-related nuclear cataract, right eye (principal); J45.909 Unspecified asthma, uncomplicated; K21.9 Gastro-esophageal reflux disease without esophagitis; H40.009 Preglaucoma, unspecified, unspecified eye; J44.9 Chronic obstructive pulmonary disease, unspecified

== ENCOUNTER → 2017-11-10 | Day surgery (SDC) | payer BC ==
[2017-11-08 13:09] VITALS: Ht 154.9 cm; Wt 76.8 kg
[~2017-11-10] VITALS: Ht 154.9 cm; Wt 76.8 kg
[~2017-11-10] MED LIST changes: -FENTANYL CITRATE INJ 50 MCG/1 ML 2 ML VIAL ONE; +LIDOCAINE 4% OP SOLN DROP CHARGE OPL SCH; -LIDOCAINE 4% OP SOLN DROP CHARGE OPR SCH; +PROPARACAINE 0.5% OP SOLN PER DROP CHARGE OPL SCH; -PROPARACAINE 0.5% OP SOLN PER DROP CHARGE OPR SCH
[2017-11-10] MEDS: PHENYLEPHRINE HCL 2.5% OP SOLN PER DROP CHARGE OPL SCH ×3 (06:36→06:45)
[2017-11-10] MEDS: TROPICAMIDE 1% OP SOLN PER DROP CHARGE OPL SCH ×3 (06:37→06:46)
[2017-11-10] MEDS: CYCLOPENTOLATE HCL 1% OP SOLN PER DROP CHARGE OPL SCH ×3 (06:38→06:47)
[2017-11-10] MEDS: MOXIFLOXACIN OPH SOLN PER DROP CHARGE OPL SCH ×3 (06:39→06:48)
--- NOTE | 2017-11-10 07:22 | [facility] Post Operative Brief Note ---
Immediate Operative Summary Operative Date Nov 10, 2017. Pre-Operative Diagnosis Left Eye Cataract Post-Operative Diagnosis Same Procedure(s) Performed Left Cataract Phacoemulsification With Intraocular Lens Implant Surgeon Dr. Amanda Peterson [employer] Surgeon(s) None Estimated Blood Loss 0 Findings Consistent with Post-Op Diagnosis Specimens None Anesthesia Type MAC Complication(s) none Disposition Accompanied Pt To Recovery: no Disposition:
--- NOTE | 2017-11-10 07:23 | [facility] Operative Report ---
Operative Report Date of Service Nov 10, 2017. Operative Report DATE OF OPERATION: 11/10/17 PREOPERATIVE DIAGNOSIS: Senile nuclear cataract, left eye POSTOPERATIVE DIAGNOSIS: Senile nuclear cataract, left eye PROCEDURE PERFORMED: Phacoemulsification with intraocular lens implantation, left eye SURGEON: Dr. Pako Peterson ANESTHESIA: Topical with 1% intracameral lidocaine and monitored anesthesia care COMPLICATIONS: None DESCRIPTION OF PROCEDURE: After positively identifying the patient both verbally and by wristband in the preoperative area, the left eye was marked as the operative eye. The patient was then brought back to the operating room by the anesthesia and nursing staff where they were given a drop of Lidocaine and betadine into the operative eye. They were then sterilely prepped and draped in the standard fashion typical for ophthalmic surgery. Steri-strips were placed along the upper eyelids to keep the lashes back, and a lid speculum was placed into the operative eye. At this point, a documented time out was performed with members of the ophthalmology, nursing, and anesthesia staffs all agreeing upon the correct patient, correct location for surgery, correct procedure, and correct type and power of intraocular lens to be implanted. The microscope was then swung into position. First, a paracentesis wound was made using a sideport blade. Then, in sequence, 1% preservative-free lidocaine followed by Endocoat viscoelastic was injected into the anterior chamber. Next , the main incision was made with a keratome blade in triplanar fashion. A sharp cystotome was introduced into the eye and used to create a tear in the anterior capsule, which was directed into a continuous curvilinear capsulorrhexis using Utrata forceps. Hydrodissection was then performed with BSS on a flat-tip cannula. Next, the phacoemulsification handpiece was introduced into the eye and used to remove the nucleus in a [id number] fashion. This was done without complication and then the irrigation-aspiration handpiece was introduced into the eye and used to remove all remaining cortical and epinuclear material. Amvisc was then injected into the anterior chamber as well as into the capsular bag and using the lens injector system, an MX60 22.0 D lens, serial number [id number], and expiration date 05/2020 was injected into the capsular bag and rotated into the correct position. Next, the irrigation- aspiration handpiece was used to remove all remaining Amvisc. BSS was used to hydrate the main wound, and then BSS was injected into the paracentesis site to reach physiologic pressure and then the main wound was checked and found to be watertight. The patient was given drops of Vigamox and Tobradex ointment into the operative eye, and then the surrounding area was cleaned and dried. A clear plastic shield was placed over the eye and the patient was then sat up and taken from the operating room by the anesthesia staff having tolerated the procedure well and suffering no complications. DISPOSITION: The patient was returned to the recovery room in stable condition. I attest to the content of the Intraoperative Record and any orders documented therein. Any exceptions are noted below.
[2017-11-10 07:24] VITALS: TEMP 36.6
--- NOTE | 2017-11-10 07:24 | Discharge Instructions-SurgCtr ---
Discharge Instructions Date of Service Nov 10, 2017. Visit Reason for Visit: Cataract Left Eye Discharge Discharge Diagnosis / Problem: left cataract Discharge Goals Goal(s): Decrease discomfort, Improve function Activity Recommendations Activity Limitations: as noted below Anesthesia . Post Anesthesia Instructions: If you have had General Anesthesia or IV Sedation: * Do not drive today. * Resume driving when surgeon permits. * Do not make important decisions or sign legal documents today. * Call surgeon for: 1. Temperature elevations greater than 101 degrees F. 2. Uncontrollable pain. 3. Excessive bleeding. 4. Persistent nausea and vomiting. 5. Medication intolerance (nausea, vomiting or rash). * For nausea and vomiting use only clear liquids such as: tea, soda, bouillon until nausea subsides, then gradually increase diet as tolerated. * If you have any concerns or questions, call your surgeon's office. If physician is unavailable and it is an emergency, call 911 or go to the nearest emergency room. . Instructions / Follow-Up Instructions / Follow-Up ACTIVITY RECOMMENDATIONS: * Light activities. * You may walk outside, read, watch television. * You may notice redness on the white part of the eye and some blurry vision - this is normal. MEDICATIONS: Resume previous medications unless instructed otherwise by your surgeon. Start all eye drops at 9:30 am today: * Eye drops (today): Prednisone - one drop in operative eye every 2 hours while awake Ofloxacin - one drop in operative eye every 2 hours while awake Prolensa - one drop in operative eye daily SPECIAL CARE INSTRUCTIONS: * Tape plastic shield over eye to sleep at night. Call your doctor at with any concerns or problems. FOLLOW UP VISIT: Follow-up with Dr Peterson at [facility] as scheduled. Diet Recommendations Home Diet: no limitations Procedures Procedures Performed: Left Cataract Phacoemulsification With Intraocular Lens Implant Pending Studies Studies pending at discharge: no Medical Emergencies . Who to Call and When: Medical Emergencies: If at any time you feel your situation is an emergency, please call 911 immediately. . Non-Emergent Contact Non-Emergency issues call your: Surgeon . . "Provider Documentation" section prepared by Pako Peterson. .
[2017-11-10 07:44] VITALS: BP 141/87; PULSE 76; O2SAT 100
--- NOTE | 2017-11-10 07:48 | Anesthesia Progress Nt - [facility] ---
Anesthesia Post Op Note Date & Time Nov 10, 2017 at 07:48 Vital Signs Pain Intensity: 0 Vital Signs Past 12 Hours Date Time Temp Pulse Resp B/P (MAP) Pulse Ox O2 Delivery O2 Flow Rate FiO2 11/10/17 07:44 76 16 141/87 (105) 100 Room Air 11/10/17 07:24 36.6 82 16 135/82 (99) 100 Room Air 11/10/17 06:28 36.5 81 16 150/77 (101) 98 Room Air Notes Mental Status: alert / awake / arousable, participated in evaluation Pt Amnestic to Procedure: Yes Nausea / Vomiting: adequately controlled Pain: adequately controlled Airway Patency, RR, SpO2: stable & adequate BP & HR: stable & adequate Hydration State: stable & adequate Anesthetic Complications: no major complications apparent
== END | disposition home or self-care (01) ==
LOC: X.SURG 06:08
PROVIDERS: ATTEND Ophthalmology
DX: H25.12 Age-related nuclear cataract, left eye (principal); J45.909 Unspecified asthma, uncomplicated; J44.9 Chronic obstructive pulmonary disease, unspecified; F41.9 Anxiety disorder, unspecified; K21.9 Gastro-esophageal reflux disease without esophagitis; Z98.41 Cataract extraction status, right eye; Z90.89 Acquired absence of other organs; Z79.899 Other long term (current) drug therapy

== ENCOUNTER → 2018-03-03 | Outpatient (CLI) | payer BC ==
[~2018-03-03] MED LIST changes: -500ML BSS 0.3ML EPI 1:1000PF IRRIG ONE; -ACETAMINOPHEN 325 MG TAB PO PRN; -AMVISC PLUS 0.8ML SYRINGE INT OCU ONE; -ATROPINE SULFATE 0.1 MG/ML 5ML SYR IV PRN; -BSS FLUSH ONE; -CLON0.5T3 PO; -ENDOCOAT 0.85ML SYRINGE INT OCU ONE; -EpHEDrine SULFATE INJ 50 MG/ML AMP IV PRN; -EpINEphrine INJ 1MG/ML AMP 1 MG/ML AMP ONE; +IPRA-64 INH; -IPRASOL4 INH; +KLN/5 PO; -LACTATED RINGER'S 1000ML 500 ML IV SCH; -LIDOCAINE 4% OP SOLN DROP CHARGE ONE; -LIDOCAINE 4% OP SOLN DROP CHARGE OPL SCH; -LIDOCAINE HCL 1% MPF 2 ML VIAL ONE; -MIDAZOLAM HCL 1 MG/ML 2ML VIAL ONE; -MIX: 4ML BSS 1ML EPI 1:1000 PF TOP ONE; -MOXIFLOXACIN OPH SOLN PER DROP CHARGE ONE; -POVIDONE-IODINE OP SOLN 30 ML BTL ONE; -PROPARACAINE 0.5% OP SOLN PER DROP CHARGE OPL SCH; -TOBRAMYCIN/DEXAMETHASONE OPH OINT PER APPLN CHARGE ONE
--- NOTE | 2018-03-03 11:18 | DIAGNOSTIC IMAGING REPORT ---
(BARIUM SWALLOW) ESOPHAGUS CLINICAL HISTORY: GERD, ASTHMA COMPARISON STUDY: None FLUOROSCOPY TIME: 1.4 minutes. FINDINGS: Patient initiates swallowing function well. Esophagus is normal in course and caliber. Mild esophageal irritability. Mild gastroesophageal reflux. IMPRESSION: Mild esophageal irritability and/or spasm. Mild reflux. Otherwise negative study. The above report was generated using voice recognition software. It may contain grammatical, syntax or spelling errors. Electronically signed by: Jac Greenfield M.D. 03/03/2018 11:17 AM Dictated Date/Time: 03/03/2018 11:15 AM
--- NOTE | 2018-03-07 08:03 | PULMONARY FUNCTION TEST ---
Prebronchodilator spirometry suggests the presence of minimal small airways disease. There was a modest response to bronchodilator as evidenced by improved flow measured at low lung volumes. Lung volumes were essentially within normal limits. Diffusion capacity when corrected for level of alveolar ventilation was well within normal limits. Clinical correlation is needed.
== END | disposition home or self-care (01) ==
LOC: C.RC 09:24
PROVIDERS: ATTEND Internal Medicine
DX: Z01.818 Encounter for other preprocedural examination (principal); K21.9 Gastro-esophageal reflux disease without esophagitis; J45.909 Unspecified asthma, uncomplicated

== ENCOUNTER 2018-12-02 07:28 | Inpatient (IN) ==
--- NOTE | 2018-11-25 08:52 | Anesthesiology Consultation ---
Date of Service November 25, 2018 Assessment & Plan (1) Encounter for pre-operative examination: Chart Review Chart Review: Acceptable Risk for Surgery (pending evaluation of clinical status AM DOS) and Patient seen in Pre Admission Testing Teaching & Discussion Pre-Anesthesia Teaching/Discussion Notes: Instructed NPO after midnight before s urgery,except medications with 15 cc of water. Medication instructions provided according to the PAT guidelines. History Surgery Operation Date: 12/02/18 09:35 Proposed Procedures p Left Video Assisted Thoracoscopy with Lung Biopsy, - Cornel Wilkins MD, FACS s Flexible Bronchoscopy - Cornel Wilkins MD, FACS Height/Weight Height: 5 ft 2 in Weight: 81.3 kg Allergies Allergy/AdvReac Type Severity Reaction Status Date / Time propofol Allergy Unknown NAUSEA, Verified 11/25/18 08:55 SHORTNESS OF BREATH, N/V Medications Home Medications Medication Instructions Recorded Confirmed Last Taken acetaminophen 325 mg PO Q6H PRN 11/24/18 11/24/18 Unknown albuterol sulfate 1.25 mg INHALATION QID PRN 11/24/18 11/24/18 Unknown budesonide 0.5 mg INHALATION BID 11/24/18 11/24/18 Unknown clonazepam 1 mg PO HS PRN 11/24/18 11/24/18 Unknown ibuprofen 200 mg PO QID PRN 11/24/18 11/24/18 Unknown ipratropium-albuterol 3 ml INHALATION Q4H PRN 11/24/18 11/24/18 Unknown methylprednisolone sod suc(PF) 40 mg IM QAM PRN 11/24/18 11/24/18 Unknown [Solu-Medrol (PF)] omeprazole 20 mg PO QAM 11/24/18 11/24/18 Unknown prednisone 10 mg PO DIRECTED 11/24/18 11/24/18 Unknown sodium chloride [Nasal [place] 2 spray INTRANASAL QID PRN 11/24/18 11/24/18 Unknown (sodium chloride)] Past Medical History Medical History Anxiety Asthma COPD (chronic obstructive pulmonary disease) 2.5 O2 HS; RARE DAYTIME USE PRN ON CHRONIC PREDNISONE 10-20MG Chronic bronchitis GERD (gastroesophageal reflux disease) CONTROLLED History of kidney stones Past Surgical History Surgical History History of bronchoscopy SEVERAL History of cardiac cath 2011= NO STENTS History of colonoscopy History of surgical removal of ganglion cyst Hx of bilateral cataract extraction Hx of cystoscopy + KIDNEY STONE EXTRACTION Hx of eye surgery LASER SURGERY B/L Past Anesthesia History No Family Hx of Anesthesia Complications and Other "Slow to wake" x multiple; no known hx reintubation. History of PONV No Motion Sickness Screening History of Motion Sickness: No Social History Smoking Status: Never smoker Do You Dip or Chew Tobacco: No Hx Alcohol Use: Yes alcohol intake frequency: holidays/special occasions only Hx Substance Use: No Exercise / Class Metabolic Activity III < 4 Walking/Shop/Light housework (WALKS DOG DAILY) Review of Systems Occasional wheezing. Patient denies chest pain, shortness of breath, palpitations. Physical Exam Vital Signs VITALS BP 156/91 P 88 TEMP 97.9 SP02 94%RA RESP 20 PHYSICAL Full neck and c-spine range of motion. Full TMJ range of motion. TMD 3.5 finger breaths Mallampati Score 2 Dentition: intact Lungs: decreased breath sounds throughout, no respiratory distress and no accessory muscle use Cardiac: regular rate and rhythm, no murmurs noted Spine: normal Carotid arteries: negative bruit Extremities: no edema Short, thick neck Testing Electrocardiogram Date: 04/28/18 SR with short RI interval at 87bpm. RVCD. NS TWA. Chest X-Ray Date: 09/09/18 Findings: + NAD No acute intrathoracic pathology. Central airways patent. Minimal bandlike opacity in the right middle lobe and lingula likely atelectasis. Minimal dependent groundglass opacities also likely atelectasis. No demonstrable CT evidence of smoking related lung injury. Stress Test Date: 06/04/17 Type: exercise Negative stress ECHO/EKG for ischemia at 91% MPHR. No chest pain. EF 60-65%. Type I DD. Mild cLVH. Mild RI. Cardiac Catheterization Date: 03/17/12 The patient has widely patent and normal coronary anatomy. Laboratory Results 11/25/18 09:15 11/25/18 09:15 Blood Type A Negative 11/25/18 09:15 Antibody Screen NEGATIVE 11/25/18 09:15
[2018-11-25 10:10] LABS: Basophils # (auto) 0.02 K/uL (0-0.2); Basophils % (auto) 0.2 %; Eosinophils # (auto) 0.17 K/uL (0-0.5); Eosinophils % (auto) 1.6 %; Hematocrit (blood only) 42.3 % (37-47); Hemoglobin 14.1 g/dL (12.0-16.0); Immature Granulocytes # (auto) 0.07 K/uL (0.00-0.02); Immature Granulocytes % (auto) 0.7 %; Lymphocytes # (auto) 3.19 K/uL (1.2-3.4); Lymphocytes % (auto) 29.7 %; Mean Corpuscular Hgb Conc 33.3 g/dL (32-36); Mean Corpuscular Volume 94.6 fL (80-100); Mean Platelet Volume 9.7 fL (7.4-10.4); Monocytes # (auto) 0.75 K/uL (0.11-0.59); Neutrophils # (auto) 6.53 K/uL (1.4-6.5); Neutrophils % (auto) 60.8 %; Platelet Count 387 K/uL (130-400); RDW Coefficient of Variation 13.2 % (11.5-14.5); RDW Standard Deviation 46.1 fL (36.4-46.3); Red Blood Count 4.47 M/uL (4.2-5.4); White Blood Count 10.73 K/uL (4.8-10.8)
[2018-11-25 10:15] LABS: Calcium 9.9 mg/dl (8.5-10.1); Creatinine Clr Calc Pharmacy 57.5 ml/min; Est GFR (African American) 70.3; Est GFR (Non-African American) 60.6; Potassium 3.9 mmol/L (3.5-5.1)
[~2018-12-02 07:28] MED LIST changes: -ALBINS/ INH; +ATROPINE SULFATE 0.1 MG/ML 10ML SYR IV PRN; -HIZENTRA SC; +HYDROmorphone INJ 1 MG/ML SYRINGE IV PRN; -IPRA-64 INH; -KLN/5 PO; +LR 15ML/HR IV SCH; -MOME6000 NAE; -MULT-506 PO; -OMEP40CA18 PO; +ONDANSETRON INJ 2 MG/ML 2 ML VIAL IV PRN; -OXGN; -PLMINSR5 INH; -PRED20TA PO; -RANI300T2 PO; +ePHEDrine sulfate 50 MG/ML AMP IV PRN; +fentaNYL citrate 100 MCG/2 ML VIAL IV PRN
--- OUTSIDE RECORDS SUMMARY | 2018-12-02 07:34 | External Medical Summary | Continuity of Care Document ---
:1955 Author Name Sabra Jacobo, Provider Address Unavailable Unavailable , Care Team Providers Name Role Phone Ozzy Jacobo, [email or web address] Marlon SANTOS, [email or web address] Franky Jacobo, [email or web address] Matthew Jacobo, 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) Back pain (724.5) (M54.9) Wheezing (786.07) (R06.2) Aspergillus (117.3) (B44.9) Fatigue (780.79) (R53.83) Acute sinusitis (461.9) (J01.90) Depression with anxiety (300.4) (F41.8) Candidiasis (112.9) (B37.9) Muscle cramping (729.82) (R25.2) DUB (dysfunctional uterine bleeding) (626.8) (N93.8) Oral thrush (112.0) (B37.0) Bone pain (733.90) (M89.8X9) Gastroesophageal reflux disease without esophagitis (530.81) (K21.9) Diarrhea (787.91) (R19.7) Diverticulitis of colon (562.11) (K57.32) 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) (T63.91XA) Chronic pain (338.29) (G89.29) Edema (782.3) (R60.9) COPD, moderate (496) (J44.9) Chronic bronchitis (491.9) (J42) Asthma (493.90) (J45.909) Acute bronchitis (466.0) (J20.9) Chest pain of unknown etiology (786.59) (R07.89) Shortness of breath (786.05) (R06.02) Cough (786.2) (R05) Insomnia, unspecified (780.52) (G47.00) Immunodeficiency disorder (279.3) (D84.9) Daytime sleepiness (780.54) (R40.0) 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 Start: 15-Aug-2013 Refills: 0 Nasonex 50 MCG/ACT Nasal Suspension; USE 2 SPRAYS IN E ACH NOSTRIL ONCE DAILY TOM Mason Start: 27-Sep-2012 Quantity: 1 17 GM Inhaler Refills: 0 Zegerid CAPS; TAKE 1 CAPSULE DAILY. Refills: 0 Ibuprofen 800 MG Oral Tablet; TAKE 1 TABLET 4 TIMES DA KOREY NEEDED. TOM Mason Start: 12-Aug-2016 Quantity: 120 Refills: 5 Oxygen Refills: 0 clonazePAM 0.5 MG Oral Tablet; Take 1-2 tablets at bedtime TOM Krishna Start: 13-Aug-2014 Quantity: 60 Refills: 0 Brovana 15 MCG/2ML Inhalation Nebulizati on Solution; INHALE THE CONTENTS OF 1 VIAL TWO TIMES DAILY IN THE MORNING AND EVENING VIA STANDARD JET NEBULIZER DIRECTED. TOM Mason 60 x 2 ML Plas Cont Quantity: 1 Refills: 5 Eszopiclone 2 MG Oral Tablet; TAKE 1 TAB LET BY MOUTH EVERY NIGHT NEEDED FOR SLEEP TOM Mason Start: 19-Jul-2018 Quantity: 30 Refills: 0 EpiPen 2-Ramin 0.3 MG/0.3ML Injection Solution Auto-inje ctor; as directed Odalis Preciado Start: 07-Oct-2017 Quantity: 1 Refills: 1 Budesonide 0.5 MG/2ML Inhalation Suspens ion; USE 1 VIAL IN NEBULIZER ONCE DAILY. INCREASE TO TWICE DAILY WITH ILLNESS. Odalis Castro Start: 28-Dec-19 Quantity: 2 30 x 2 ML Plas Cont Refills: 5 methylPREDNISolone 4 MG Oral Tablet; TAKE 4 TABLETS TW ICE DAILY. TOM Mason Start: 03-Aug-2018 Quantity: 240 Refills: 1 Vitamin C 500 MG Oral Tablet; TAKE 1 TABLET DAILY. Start: 12-Dec-2015 Refills: 0 Potassium Chloride ER 10 MEQ Oral Capsul e Extended Release; TAKE 2 CAPSULES Three times a week TOM Mason Start: 26-Apr-2014 Quantity: 30 Refills: 5 Ipratropium Ebro 0.02 % Inhalation So lution; INHALE 1 UNIT DOSE Every 4 hours PRN Odalis Preciado Start: 23-Aug-2013 Quantity: 2 60 x 2.5 ML Vial Refills: 5 Albuterol Sulfate (2.5 MG/3ML) 0.083% In halation Nebulization Solution; USE 1 UNIT DOSE IN NEBULIZER EVERY 4 HOURS NEEDED. Odalis Preciado Start: 10-Feb-2012 Quantity: 2 60 x 3 ML Plas Cont Refills: 5 raNITIdine HCl - 300 MG Oral Tablet; TAKE 1 TABLET AT BEDTIME. TOM Mason Start: 17-Sep-2016 Quantity: 30 Refills: 5 Procedures History of Tonsillectomy Status: Complet ed History of Lithotomy Status: Completed History of Sinus Surgery Status: Complet ed History of lung surgery Status: Complete d History of Wrist Surgery Status: Complet ed History of Cataract Surgery Status: Comp leted Immunizations Pneumococcal polysaccharide vaccine, 23 valent On: 20-May-20 04 0:00 Pneumococcal polysaccharide vaccine, 23 valent On: 14-Oct-19 09 0:00 Influenza On: 2010 Influenza On: 2011 Influenza On: 22-Jun-2013 16:35 Lot #: [id number], SANOFI PASTEUR Fluzone INJ On: 14-Jun-2014 14:46 Lot #: [id number], SANOFI PASTEUR Adacel 5-2-15.5 LF-MCG/0.5 Intramuscular Suspension On: 14:13 Lot #: [id number], SANOFI PASTEUR Influenza On: May-2015 Family History Mother Family history of Cancer Status: Active Family history of malignant neoplasm (V16.9) (Z80.9) Status: Active Father Family history of Diabetes Mellitus (V18.0) Status: Active Family history of Heart Disease (V17.49) Status: Active Family history of diabetes mellitus (V18.0) (Z83.3) Status: Active Brother Family history of Cancer Status: Active Unknown Family Member Family history of Diabetes Mellitus (V18.0) Status: Active Comments: Family History Family history of Heart Disease (V17.49) Status: Active Comments: Family History Family history of Cancer Status: Active Comments: Famil y History Social History - Smoking Status Never smoker Plan of Treatment Planned Encounters Appointment; Cornel Wilkins M.D. Start: 02-Dec-2018 9:15 R equest Planned Observations Planned Goals not documented Results CBC With DIFF Laboratory: [facility] Laboratory [address] [facility] [address] tel: 25-Nov-2018 9:15 WBC 10.73 K/uL Range: 4.8-10.8 K/u L RBC 4.47 {M/uL} Range: 4.2-5.4 M/uL HEMOGLOBIN 14.1 g/dL Range: 12.0-16.0 g /dL HEMATOCRIT 42.3 % Range: 37-47 % MCV 94.6 fL Range: 80-100 fL MCH 31.5 pg Range: 25-34 pg MEAN CORPUSCULAR HGB CONC 33.3 g/dL Rang e: 32-36 g/dL RED CELL DISTRIBUTION WIDTH SD 46.1 Rang e: 36.4-46.3 fL fL RED CELL DISTRIBUTION WIDTH CV 13.2 Rang e: 11.5-14.5 % % PLATELET COUNT 387 K/uL Range: 130-400 K/uL MEAN PLATELET VOLUME 9.7 fL Range: 7.4- 10.4 fL NEUT % 60.8 % Range: % LYMPH % 29.7 % Range: % MONO % 7.0 % Range: % EOS % 1.6 % Range: % BASO % 0.2 % Range: % IG% 0.7 % Range: % Comments: IG paramet er reflects the combination of Metas, Myelos andPromyelocytes. Neutrophils (Auto) 6.53 K/uL Range: 1. 4-6.5 K/uL (above high threshold) LYMPH ABS # 3.19 K/uL Range: 1.2-3.4 K/ uL MONO ABS # 0.75 K/uL (above high Range: 0.11-0.59 K/uL threshold) EOS ABS # 0.17 K/uL Range: 0-0.5 K/uL BASO ABS # 0.02 K/uL Range: 0-0.2 K/uL IG# 0.07 K/uL (above high Range: 0.00-0 .02 K/uL threshold) Basic Metabolic Panel Laboratory: [facility] Laboratory [address] [facility] [address] tel: 25-Nov-2018 9:15 SODIUM 139 mmol/L Range: 136-145 mmol /L POTASSIUM 3.9 mmol/L Range: 3.5-5.1 mmo l/L CHLORIDE 107 mmol/L Range: 98-107 mmol/ L CARBON DIOXIDE 28 mmol/L Range: 21-32 m mol/L ANION GAP 4.0 Range: 3-11 BLOOD UREA NITROGEN 20 mg/dl (above Rang e: 7-18 mg/dl high threshold) CREATININE 0.99 mg/dl Range: 0.6-1.2 mg /dl Estimated Creatinine Clearance 57.5 Rang e: ml/min ml/min Comments: Est. Creat inine Clearance (Mod Cockcroft-Gault) for pharmacydosing purposes. Estimated GFR () Comment s: Units: ml/min per 70.3 1.73 meters squaredT he estimated GFR (CKD-E PI equation) has not be en validatedfor inpatie nt settings and may not be an accurate reflectiono f renal function in critical ly ill patients or those withrapidly changing renal function (e.g. JOSE ENRIQUE). Estimated GFR (Non- Comments: Uni ts: ml/min per [place]) 60.6 1.73 meters squaredT he estimated GFR (CKD-E PI equation) has not be en validatedfor inpatie nt settings and may not be an accurate reflectiono f renal function in critical ly ill patients or those withrapidly changing renal function (e.g. JOSE ENRIQUE). BUN/CREATININE RATIO 20.0 Range: 10-20 GLUCOSE 120 mg/dl (above high Range: 70 -99 mg/dl threshold) CALCIUM 9.9 mg/dl Range: 8.5-10.1 mg/ dl Vital Signs 17-Nov-2018 13:44 Systolic 152 mm[Hg] Diastolic 88 mm[Hg] Heart Rate 102 /min Respiration 20 /min O2 Saturation 98 % Comments: Source: RA Encounters Appointment; Arnold Martin PA-C 17-Nov-2018 13:45 Encounter Diagnosis: Problem not documented Appointment; ARISTIDES CRUZJONES 17-Nov-2018 12:00 Encounter Diagnosis: Problem not documented Appointment; ARISTIDES CRUZYELITZABrina 25-Oct-2018 10:30 Encounter Diagnosis: Problem not documented Appointment; ARISTIDES CRUZJONES 18-Oct-2018 14:30 Encounter Diagnosis: Problem not documented Appointment; Manny Abarca M.D. 18-Oct-2018 14:15 Encounter Diagnosis: Problem not documented Appointment; ARISTIDES CRUZYELITZABrina 07-Oct-2018 10:00 Encounter Diagnosis: Problem not documented Appointment; Cornel Wilkins M.D. 06-Oct-2018 9:00 Encounter Diagnosis: Problem not documented Appointment; ARISTIDES CRUZYELITZABrina 23-Sep-2018 11:15 Encounter Diagnosis: Problem not documented Appointment; Dank Mason PA-C 20-Sep-2018 11:00 Encounter Diagnosis: Problem not documented Appointment; ARISTIDES CRUZJONES 08-Sep-2018 15:00 Encounter Diagnosis: Problem not documented Appointment; Danyelle Galloway CRNP 06-Sep-2018 11:30 Encounter Diagnosis: Problem not documented Appointment; ARISTIDES LOWE AMBERTaylaJONES 25-Aug-2018 15:00 Encounter Diagnosis: Problem not documented Appointment; Dank Mason PA-C 18-Aug-2018 14:30 Encounter Diagnosis: Problem not documented Appointment; Dank Mason PA-C 03-Aug-2018 13:00 Encounter Diagnosis: Problem not documented Appointment; ARISTIDES OLWE JONES CRUZ 22-Jul-2018 11:30 Encounter Diagnosis: Problem not documented Appointment; Dank Mason PA-C 19-Jul-2018 10:30 Encounter Diagnosis: Problem not documented Appointment; Drake Preciado M.D. 13-Jul-2018 13:30 Encounter Diagnosis: Problem not documented Appointment; ARISTIDES LOWE AMBERTaylaJONES 22-Jun-2018 11:00 Encounter Diagnosis: Problem not documented Appointment; Drake Preciado M.D. 10-May-2018 10:45 Encounter Diagnosis: Problem not documented Appointment; Dank Mason PA-C 28-Feb-2018 11:45 Encounter Diagnosis: Problem not documented Appointment; Bjorn Castro M.D. 24-Feb-2018 14:30 Encounter Diagnosis: Problem not documented Appointment; Drake Preciado M.D. 10-Feb-2018 9:30 Encounter Diagnosis: Problem not documented Appointment; ARISTIDES CRUZ, YELITZA4 01-Feb-2018 15:45 Encounter Diagnosis: Problem not documented Appointment; ARISTIDES LOWE AMBERTayla, NS4 26-Jan-2018 11:00 Encounter Diagnosis: Problem not documented Appointment; Drake Precidao M.D. 05-Jan-2018 13:00 Encounter Diagnosis: Problem not documented Appointment; Drake Preciado M.D. 24-Nov-2017 14:45 Encounter Diagnosis: Problem not documented Appointment; Drake Preciado M.D. 21-Oct-2017 10:45 Encounter Diagnosis: Problem not documented Appointment; ARISTIEDS CHRISSY CRUZ, NS4 23-Sep-2017 13:30 Encounter Diagnosis: Problem not documented Appointment; Dank Mason PA-C 22-Sep-2017 13:30 Encounter Diagnosis: Problem not documented Appointment; Dank Mason PA-C 15-Sep-2017 14:00 Encounter Diagnosis: Problem not documented Appointment; Dank Mason PA-C 07-Sep-2017 10:45 Encounter Diagnosis: Problem not documented Appointment; Drake Preciado M.D. 25-Aug-2017 13:00 Encounter Diagnosis: Problem not documented Appointment; Drake Preciado M.D. 15-Jul-2017 13:30 Encounter Diagnosis: Problem not documented Appointment; Drake Preciado M.D. 29-Jun-2017 9:00 Encounter Diagnosis: Problem not documented Appointment; Drake Preciado M.D. 21-Jun-2017 9:00 Encounter Diagnosis: Problem not documented Appointment; Drake Preciado M.D. 01-Jun-2017 10:45 Encounter Diagnosis: Problem not documented Appointment; Pulmonary, Funct Testing 31-May-2017 9:30 Encounter Diagnosis: Problem not documented Appointment; Dennise Holly PA-C 28-May-2017 11:15 Encounter Diagnosis: Problem not documented Appointment; Drake Preciado M.D. 06-May-2017 13:30 Encounter Diagnosis: Problem not documented Appointment; Bjorn Castro M.D. 26-Apr-2017 8:00 Encounter Diagnosis: Problem not documented Appointment; Dank Mason PA-C 22-Apr-2017 14:30 Encounter Diagnosis: Problem not documented Appointment; Dank Mason PA-C 08-Apr-2017 13:30 Encounter Diagnosis: Problem not documented Appointment; Dank Mason PA-C 31-Mar-2017 14:30 Encounter Diagnosis: Problem not documented Appointment; Dank Mason PA-C 23-Mar-2017 14:45 Encounter Diagnosis: Problem not documented Appointment; Dank Mason PA-C 19-Mar-2017 14:00 Encounter Diagnosis: Problem not documented Appointment; Dennise Holly PA-C 12-Mar-2017 9:00 Encounter Diagnosis: Problem not documented Appointment; Dennise Holly PA-C 09-Mar-2017 10:30 Encounter Diagnosis: Problem not documented Appointment; Dank Mason PA-C 25-Feb-2017 10:30 Encounter Diagnosis: Problem not documented Appointment; BB Pulmonary, Nursing 03-Feb-2017 15:45 Encounter Diagnosis: Problem not documented Appointment; BB Pulmonary, Nursing 12-Jan-2017 15:30 Encounter Diagnosis: Problem not documented Appointment; Cornel Wilkins M.D. 02-Dec-2018 9:15 Encounter Diagnosis: Problem not documented
[2018-12-02] MEDS ORDERED: MIDAZOLAM HCL 1 MG/ML 2ML VIAL ONE (08:15)
[2018-12-02] MEDS ORDERED: fentaNYL citrate 100 MCG/2 ML VIAL ONE (08:15)
--- NOTE | 2018-12-02 08:44 | History & Physical Bridge Note ---
Date of Service December 02, 2018 History & Physical Bridge Note I have examined the patient, reviewed the History & Physical and in the interval since the performance of the History & Physical I have noted the following changes of clinical significance: no changes noted
[2018-12-02] MEDS ORDERED: BUPIVACAINE 0.5 % 5 MG/1 ML MPF 30ML VIAL ONE (08:57)
[2018-12-02] MEDS ORDERED: SODIUM CHLORIDE 0.9% PF 50 ML VIAL ONE (08:58)
[2018-12-02] MEDS ORDERED: BUPIVACAINE LIPOSOME 1.3% 266 MG/20 ML VIAL ONE (08:58)
[2018-12-02] MEDS ORDERED: ROCURONIUM BROMIDE 10 MG/ML 5 ML VIAL ONE (09:05)
[2018-12-02] MEDS ORDERED: LIDOCAINE HCL 2% 2 ML VIAL/AMP(20MG/ML) INFIL ONE (09:05)
[2018-12-02] MEDS ORDERED: PROPOFOL IV EMULSION 10 MG/ML 20 ML VIAL IV ONE (09:05)
[2018-12-02] MEDS ORDERED: CEFAZOLIN 250 MG/ML 1 GM VIAL ONE ×2 (09:21→09:30)
[2018-12-02] MEDS ORDERED: HYDROCORTISONE SOD SUCCINATE 100 MG/2 ML VIAL ONE (09:30)
[2018-12-02] MEDS ORDERED: ALBUTEROL HFA INHALER 8.5 GM ONE (10:08)
[2018-12-02] MEDS ORDERED: GLYCOPYRROLATE 0.2 MG/ML VIAL ONE (10:34)
[2018-12-02] MEDS ORDERED: NEOSTIGMINE METHYLSULFATE 5 MG/5 ML SYR ONE (10:34)
--- NOTE | 2018-12-02 10:48 | Post Operative Brief Note ---
Immediate Post Op Note v1 Date of Surgery December 02, 2018 Pre & Post Diagnosis Operation Date: 12/02/18 08:45 Pre-Op Diagnosis: Dyspnea of unknown etiology Post-Op Diagnosis: Dyspnea of unknown etiology Procedure Operation Date: 12/02/18 08:45 Actual Procedures p Left Video Assisted Thoracoscopy with Lung Biopsy,(Left) - Cornel Wilkins MD, FACS s Flexible Bronchoscopy - Cornel Wilkins MD, FACS Surgeon Cornel Wilkins MD, FACS First Mate Mario Silva Estimated Blood Loss 5 Findings Consistent with Post-Op Diagnosis Drains Chest Tube and Villatoro Catheter
[2018-12-02] MEDS ORDERED: METOCLOPRAMIDE HCL INJ 5 MG/ML 2 ML VIAL IV ONE (11:00)
[2018-12-02] MEDS ORDERED: METOCLOPRAMIDE HCL INJ 5 MG/ML 2 ML VIAL ONE (11:15)
--- NOTE | 2018-12-02 11:18 | XRay Report ---
XR chest 1V portable CLINICAL HISTORY: lung biopsy COMPARISON STUDY: 07/13/2018 FINDINGS: Left-sided chest tube in good position. Very small left apical pneumothorax with a maximum pleural separation at 6 mm. Minimal atelectatic change right midlung. IMPRESSION: Very tiny left apical pneumothorax. Minimal scattered bilateral atelectatic change. The above report was generated using voice recognition software. It may contain grammatical, syntax or spelling errors. Electronically signed by: Jac Greenfield M.D. 12/02/2018 11:17 AM
--- NOTE | 2018-12-02 11:32 | Anesthesiology Progress Note ---
Date of Service December 02, 2018 Anesthesia Post Procedure Vital Signs Vital Signs: Temp Pulse Pulse Resp BP Pulse Ox 12/02/18 11:25 66 16 133/80 96 12/02/18 11:15 69 18 145/85 H 95 12/02/18 11:05 75 14 106/70 95 12/02/18 10:58 36.0 C L 76 14 129/69 95 12/02/18 08:01 36.7 C 80 20 173/86 H 97 Transfer of Care Handoff Completed per policy Notes Mental Status: alert / awake / arousable and participated in evaluation Patient Amnestic to Procedure: Yes Nausea / Vomiting: adequately controlled Pain: adequately controlled Airway Patency, RR, SpO2: stable & adequate BP & HR: stable & adequate Hydration State: stable & adequate Anesthetic Complications: no major complications apparent and Pt Satisfied with anesthetic care
[2018-12-02] MEDS ORDERED: clonazePAM 0.5 MG TAB PO PRN (11:53)
[2018-12-02] MEDS ORDERED: SODIUM CHLORIDE 0.65% NA SOLN 45 ML (OCEAN) PRN (11:53)
[2018-12-02] MEDS ORDERED: ALBUTEROL 0.083% NEBU SOLN 3 ML VIAL INH PRN (11:53)
[2018-12-02] MEDS ORDERED: OXYCODONE HCL IR 5 MG TAB (IMMEDIATE RELEASE) PO PRN (11:53)
[2018-12-02] MEDS ORDERED: ONDANSETRON INJ 2 MG/ML 2 ML VIAL IV PRN (11:53)
[2018-12-02] MEDS ORDERED: MoRPHine SULFATE 2 MG/ML CARP ONE (11:59)
[2018-12-02] MEDS: METOCLOPRAMIDE HCL INJ 5 MG/ML 2 ML VIAL IV SCH ×2 (12:51→20:46)
[2018-12-02] MEDS: D5W AND 1/2NSS 1,000 ML IV SCH ×2 (13:23→23:57)
[2018-12-02] MEDS: MoRPHine SULFATE 2 MG/ML CARP IV PRN ×2 (14:49→17:55)
[2018-12-02] MEDS: ALBUT/IPRATROP 3MG/0.5MG NEB 3 ML VIAL INH PRN ×2 (14:52→19:54)
[2018-12-02] MEDS: ACETAMINOPHEN 1,000 MG/100 ML VIAL IV SCH ×2 (15:47→22:08)
[2018-12-02] MEDS ORDERED: COUGH DROP (SUGAR FREE) LOZ 24 LOZ/1 BOX BUCCAL ONE (18:01)
[2018-12-02] MEDS: KETOROLAC TROMETHAMINE 15 MG/ML VIAL IV PRN (18:49)
[2018-12-02] MEDS ORDERED: COUGH DROP (SUGAR FREE) LOZ 24 LOZ/1 BOX BUCCAL PRN (19:44)
[2018-12-02] MEDS: BUDESONIDE 0.5 MG/2 ML VIAL (PULMICORT) INH SCH (19:54)
[2018-12-02] MEDS: DOCUSATE SODIUM 100 MG CAP PO SCH (20:46)
[2018-12-02 23:50] VITALS: TEMP 98.2
--- NOTE | 2018-12-03 00:22 | Operative Report ---
DATE OF OPERATION: 12/02/2018 PREOPERATIVE DIAGNOSIS: Dyspnea of unknown etiology. POSTOPERATIVE DIAGNOSIS: Dyspnea of unknown etiology. PROCEDURES: 1. Fiberoptic bronchoscopy with bronchial washings. 2. Left thoracoscopy with wedge resection, left upper lobe apex lingula and left lower lobe for culture and histologic evaluation. SURGEON: Cornel Wilkins MD VEHICLE ASSEMBLY INSPECTOR: KEN Hunt ANESTHESIA: General anesthesia and endotracheal intubation using single lumen tube. INDICATIONS FOR PROCEDURE AND FINDINGS: This patient is a 63-year-old female who has been plagued with dyspnea for almost 20 years and has undergone extensive workups and was finally referred to me for a lung biopsy. I had a long talk with the patient in the office and I discussed this with Dr. Preciado, we felt that a bronchoscopy would be helpful to make sure there were no endobronchial problems or abnormalities. On 12/02/2018, the patient underwent uncomplicated induction of general anesthesia with insertion of a single lumen endotracheal tube. I then performed a bronchoscopy through this and saw absolutely no abnormalities. I went into the tertiary airways bilaterally and saw no abnormal mucosa or any lesions. She had a small amount of clear yellow sputum in the left which we performed a bronchial washing and sent off for culture. This was then completed and the patient was turned into a right lateral decubitus position and her left chest was prepped and draped in usual sterile fashion. We made a 5 mm incision posterior to the scapula and anterior to the scapula a 12 mm incision a bit more inferior. Upon entering the chest, we really saw no abnormalities. There were no adhesions. We saw no abnormalities grossly in the lung. There was evidence of a slight infiltrative pattern in the lingula, so we did a generous biopsy of the lingula and delivered this off the field and sent some for culture. We then also biopsied a portion of the left upper lobe apex as well as portion of the basilar segment of the left lower lobe. We had no bleeding or air leaking from any of these sites. We saw really no other abnormalities. A 266 mg of Exparel had been mixed with 30 mL of 0.5% Marcaine and 250 mL of normal saline used to inject each of the three ports as well as an intercostal block. A 24-Georgian chest tube was placed through the inferior most port site and directed towards the apex, held in place with heavy silk suture. A 4-0 Monocryl was used in running subcuticular fashion to approximate the wound edges. She tolerated it quite well and was extubated in the room. I attest to the content of the Intraoperative Record and any orders documented therein. Any exception s are noted below.
[2018-12-03] MEDS: KETOROLAC TROMETHAMINE 15 MG/ML VIAL IV PRN (02:21)
[2018-12-03] MEDS: METOCLOPRAMIDE HCL INJ 5 MG/ML 2 ML VIAL IV SCH (03:09)
[2018-12-03] MEDS: ACETAMINOPHEN 1,000 MG/100 ML VIAL IV SCH (06:11)
[2018-12-03] MEDS: ALBUT/IPRATROP 3MG/0.5MG NEB 3 ML VIAL INH PRN (06:15)
[2018-12-03] MEDS: BUDESONIDE 0.5 MG/2 ML VIAL (PULMICORT) INH SCH (06:15)
--- NOTE | 2018-12-03 07:17 | XRay Report ---
XR chest 1V portable CLINICAL HISTORY: lung biopsy COMPARISON STUDY: Chest radiograph December 02, 2018. FINDINGS: Left-sided chest tube is in place. A small left apical pneumothorax has slightly increased since prior exam. Lung volumes are diminished. Bibasilar opacities favor atelectasis. There is no lily dence for pulmonary edema. IMPRESSION: Left chest tube in place. Slight increase in size of a small left pneumothorax. Electronically signed by: Duncan Mcnally M.D. 12/03/2018 7:16 AM
--- NOTE | 2018-12-03 08:07 | XRay Report ---
XR chest 1V portable CLINICAL HISTORY: tube removal COMPARISON STUDY: Chest radiograph performed earlier today. FINDINGS: Left chest tube has been removed. A small left pneumothorax is unchanged. Postoperative fin dings within the left lung are noted. Mild bibasilar opacities persist. Cardiomediastinal silhouette is stable. Gas within the left chest wall is noted. IMPRESSION: No change in a small left pneumothorax following chest tube removal. Electronically signed by: Duncan Mcnally M.D. 12/03/2018 8:06 AM
[2018-12-03 08:28] VITALS: BP 130/72; O2SAT 98
[2018-12-03] MEDS: DOCUSATE SODIUM 100 MG CAP PO SCH (08:58)
[2018-12-03] MEDS ORDERED: PANTOprazole 40 MG TAB PO SCH (09:00)
[2018-12-03] MEDS ORDERED: ENOXAPARIN INJ 40 MG/0.4 ML SYR SQ SCH (09:00)
[2018-12-03] MEDS ORDERED: predniSONE 20 MG TAB PO SCH (09:00)
[2018-12-03] MEDS: D5W AND 1/2NSS 1,000 ML IV SCH (10:15)
[2018-12-03 10:18] VITALS: PULSE 73
--- NOTE | 2018-12-03 11:12 | Anesthesiology Progress Note ---
Date of Service December 03, 2018 Review of Systems Review of Systems: All systems reviewed & are unremarkable except as noted in HPI & below Physical Exam Vital Signs: Last Vital Signs Temp 36.8 C 12/03/18 10:15 Pulse 73 12/03/18 10:15 Resp 18 12/03/18 10:15 BP 130/72 12/03/18 10:15 Pulse Ox 98 12/03/18 10:15 Results & Data Medications Administered Albuterol (Duoneb) 3 ml INH Q4H PRN PRN Reason: Shortness Of Breath Stop: 01/01/19 11:52 Last Admin: 12/03/18 06:15 Dose: 3 ml Documented by: [id number] Admin: 12/02/18 19:54 Dose: 3 ml Documented by: [id number] Admin: 12/02/18 14:52 Dose: 3 ml Documented by: [id number] Budesonide (Pulmicort Respules) 0.5 mg INH BID [facility] Stop: 01/01/19 20:59 Last Admin: 12/03/18 06:15 Dose: 0.5 mg Documented by: [id number] Admin: 12/02/18 19:54 Dose: 0.5 mg Documented by: [id number] Docusate Sodium (Colace) 100 mg PO BID [facility] Stop: 01/01/19 20:59 Last Admin: 12/03/18 08:58 Dose: 100 mg Documented by: [id number] Admin: 12/02/18 20:46 Dose: 100 mg Documented by: [id number] Enoxaparin Sodium (Lovenox) 40 mg SQ QAM [facility] Stop: 01/02/19 08:59 Last Admin: 12/03/18 08:59 Dose: 40 mg Documented by: [id number] Dextrose/Sodium Chloride (D5w And 1/2nss) 1,000 mls @ 100 mls/hr IV .Q10H [facility] Stop: 01/01/19 11:52 Last Admin: 12/03/18 10:15 Dose: Not Given Documented by: [id number] Infusion: 12/03/18 10:14 Dose: 0 mls/hr Documented by: [id number] Admin: 12/02/18 23:57 Dose: 100 mls/hr Documented by: [id number] Infusion: 12/02/18 23:23 Dose: 100 mls/hr Documented by: [id number] Infusion: 12/02/18 21:54 Dose: 100 mls/hr Documented by: [id number] Admin: 12/02/18 13:23 Dose: 100 mls/hr Documented by: [id number] Acetaminophen (Ofirmev) 1,000 mg in 100 mls @ 400 mls/hr IV Q8H [facility] Stop: 01/01/19 14:59 Last Infusion: 12/03/18 06:26 Dose: 0 mls/hr Documented by: [id number] Admin: 12/03/18 06:11 Dose: 400 mls/hr Documented by: [id number] Infusion: 12/02/18 22:56 Dose: 0 mls/hr Documented by: [id number] Admin: 12/02/18 22:08 Dose: 400 mls/hr Documented by: [id number] Infusion: 12/02/18 16:04 Dose: 0 mls/hr Documented by: [id number] Admin: 12/02/18 15:47 Dose: 400 mls/hr Documented by: [id number] Ketorolac Tromethamine (Toradol) 15 mg IV Q6H PRN PRN Reason: Pain Last Admin: 12/03/18 02:21 Dose: 15 mg Documented by: [id number] Admin: 12/02/18 18:49 Dose: 15 mg Documented by: [id number] Morphine Sulfate (Morphine Sulfate) 1 - 2 mg IV Q1H PRN PRN Reason: Pain Stop: 12/16/18 11:52 Last Admin: 12/02/18 17:55 Dose: 2 mg Documented by: [id number] Admin: 12/02/18 14:49 Dose: 2 mg Documented by: [id number] Oxycodone HCl (Roxicodone Immediate Rel) 5 mg PO Q6H PRN PRN Reason: Pain Stop: 12/16/18 11:52 Last Admin: 12/03/18 07:08 Dose: 5 mg Documented by: [id number] Pantoprazole Sodium (Protonix) 40 mg PO QAM [facility] Stop: 01/02/19 08:59 Last Admin: 12/03/18 09:00 Dose: 40 mg Documented by: [id number] Prednisone (Prednisone) 20 mg PO DAILY [facility] Stop: 01/02/19 08:59 Last Admin: 12/03/18 08:59 Dose: 20 mg Documented by: [id number]
--- NOTE | 2018-12-03 14:06 | Discharge Summary ---
ADMISSION DIAGNOSIS: Dyspnea of unknown etiology. DISCHARGE DIAGNOSIS: Dyspnea of unknown etiology. HISTORY OF PRESENT ILLNESS AND HOSPITAL COURSE: This is a 63-year-old patient with a longstanding history of dyspnea on exertion. She has been following with Dr. James Preciado of pulmonary medicine, has undergone numerous bronchoscopic evaluations for her chronic dyspnea on exertion to no avail. Because of this problem, she was ultimately referred to Dr. Wilkins and he did take her to the operating room on 12/02/2018. He did perform a fiberoptic bronchoscopy and he did do bronchial washings of the left and right main stem bronchi. At the time of discharge, there is no growth noted on the Gram stain of either washing, and fungal and AFB cultures were pending as well. The patient was then converted to a left video-assisted thoracoscopy with wedge biopsy of several areas of her lung with the final pathology pending. Following her postoperative course, her stay in hospital was uneventful. Her chest tube was managed and discontinued on postop day #1 in the appropriate fashion and a post-pull chest x-ray revealed only small apical pneumothorax. The patient was deemed stable for discharge home. As noted, her postoperative course was uneventful. The patient was given written and verbal instructions on wound care, activity, driving as well as a followup with Dr. Wilkins. Our office will call her to verify time and date of appointment approximately 1 week with a repeat chest x-ray.
== END 2018-12-03 11:14 | disposition home or self-care (01) | DRG 168 ==
LOC: ASU 07:28 → 3W 10:49